=== PATIENT | male | born 1960 | race Caucasian/White ===

== ENCOUNTER 2020-09-06 08:11 | Outpatient (REF) | payer OTHER, SELFPAY ==
--- NOTE | 2020-09-06 | MR_ITS ---
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 COMPARISON: CT scan of the head 04/05/2020. TECHNIQUE: Multiplanar, multisequence MRI of the brain was obtained before and after the intravenous administration of 8.5 mL Gadavist. FINDINGS: There are sequelae of a high right frontoparietal craniotomy, and there has been resection of the previously demonstrated enhancing nodule. There is hemosiderin staining in and around the resection bed. The area demonstrates increased T2 and FLAIR signal, most consistent with gliosis. There is no abnormal enhancement in this region following intravenous contrast demonstration. No new areas of abnormal enhancement are demonstrated on the current study. No diffusion abnormalities are identified to suggest an acute or subacute infarct. No mass effect or midline shift is seen. The ventricles and sulci appear normal. There are a few scattered foci of increased T2 and FLAIR signal in the subcortical and periventricular white matter, most consistent with chronic microvascular ischemic changes. There is a low gradient signal in the basal ganglia bilaterally, corresponding to mineralization seen on the prior scan. No extra-axial fluid collections are seen. The brainstem and cerebellum are normal. There is no evidence of acute hemorrhage. The craniovertebral junction, marrow signal, and midline structures are normal. The major intracranial flow-voids at the level of the habematolel of [place] are preserved. The dural venous sinus flow-voids are maintained. The mastoid air cells and paranasal sinuses are well-aerated. MR/MR head/brain wo/w con IMPRESSION: 1. There has been interval resection of the enhancing nodule in the high right frontal lobe. There is no evidence of residual or recurrent enhancement, and there is gliosis in the region of the surgery. There are no new areas of abnormal enhancement. 2. There are mild chronic microvascular ischemic changes. There is mineralization in the basal ganglia, demonstrated on prior imaging.
[2020-09-06 08:41] LABS: Estimated Glomerular Filt Rate > 60
== END 2020-09-06 08:12 | disposition home or self-care (01) ==
LOC: HO.MRI 08:11
PROVIDERS: PCP Family Medicine; Visit Provider Student in an Organized Health Care Education/Training Program
DX: C79.31 Secondary malignant neoplasm of brain (principal); C79.49 Secondary malignant neoplasm of other parts of nervous system
CPT/HCPCS: 70553; 82565; A9585

== ENCOUNTER 2021-03-31 12:41 | Outpatient (REF) | payer OTHER, SELFPAY ==
--- NOTE | ~2021-03-31 | XR_ITS ---
EXAMINATION: XR CHEST CLINICAL INFORMATION: Cough COMPARISON: Previous chest x-rays October 2019 and April [address] April 2016 TECHNIQUE: 2 views of the chest were obtained. FINDINGS: The cardiac silhouette does not appear enlarged. There is a spiculated left central upper lobe or suprahilar lesion measuring 3 cm. This is similar to October 2019 exam but new from older chest CT April 2016. There is linear scarring or chronic subsegmental atelectasis seen in the right upper lobe that is unchanged. There is linear scarring or subsegmental atelectasis at the lung bases. The lungs are otherwise clear. There is no pleural effusion or pneumothorax. Bony structures are unremarkable. XR/XR chest 2V IMPRESSION: Stable 3 cm spiculated central left upper lobe or suprahilar nodule from October 2019 exam. Follow-up chest CT scan should be considered. Appearance is again worrisome for neoplasm. Areas of linear scarring or subsegmental atelectasis at the lung bases.
== END 2021-03-31 12:42 | disposition home or self-care (01) ==
LOC: HO.XRAY 12:41
PROVIDERS: PCP Family Medicine; Visit Provider Family Medicine
DX: Z20.822 Contact with and (suspected) exposure to COVID-19 (principal); R05 Cough; B34.9 Viral infection, unspecified
CPT/HCPCS: 71046; U0003; U0005

== ENCOUNTER 2021-04-01 09:43 | Outpatient (REF) | payer OTHER, SELFPAY ==
[2021-04-01 11:22] LABS: Alanine Aminotransferase 13 U/L (0-40); Albumin Level 4.4 g/dL (3.5-5.0); Alkaline Phosphatase 76 U/L (39-117); Anion Gap 14 (12-20); Aspartate Amino Transferase 19 U/L (5-37); Bilirubin Total 0.6 mg/dL (0.0-1.0); Blood Urea Nitrogen 15 mg/dL (9-16); Calcium 9.5 mg/dL (8.4-10.2); Carbon Dioxide 24 mmol/L (22-29); Chloride 107 mmol/L (96-108); Cholesterol 226 mg/dL; Estimated Glomerular Filt Rate 54; Glucose Random 100 mg/dL (60-115); HDL Cholesterol 43 mg/dL; LDL Cholesterol Calculated 157 mg/dl; Potassium 4.3 mmol/L (3.3-5.1); Sodium 141 mmol/L (135-145); Total Protein 7.5 g/dL (6.5-8.0); Triglycerides 133 mg/dL
== END 2021-04-01 09:44 | disposition home or self-care (01) ==
LOC: HO.WFDLDS 09:43
PROVIDERS: Visit Provider Family Medicine
DX: Z00.00 Encounter for general adult medical examination without abnormal findings (principal); R53.1 Weakness; E78.00 Pure hypercholesterolemia, unspecified; Z90.5 Acquired absence of kidney
CPT/HCPCS: 36415; 80053; 80061

== ENCOUNTER 2021-08-21 14:00 | Outpatient (RCR) | payer OTHER, SELFPAY | END 2021-10-07 07:36 | disposition home or self-care (01) | LOC: HO.PTWFD 14:00 | PROVIDERS: Visit Provider Family Medicine | DX: M54.2 Cervicalgia (principal) | CPT/HCPCS: 97012; 97014; 97035; 97110; 97140; 97162; 97163; 97535 ==

== ENCOUNTER → 2021-11-04 08:59 | Outpatient (BNVA) | payer OTHER, SELFPAY | PROVIDERS: PCP Family Medicine; Referring Provider Family Medicine; Visit Provider Surgery ==

== ENCOUNTER 2021-12-11 08:05 | Outpatient (REF) | payer OTHER, SELFPAY ==
[2021-12-11 11:14] LABS: MANUAL DIFF FLAG NO
[2021-12-11 11:20] LABS: Basophils Percent Auto 0.3 % (0-2); Eosinophils Absolute Auto 0.2 X10*3/uL (0.0-0.4); Eosinophils Percent Auto 2.2 % (0-4); Hematocrit 44.6 % (42.0-52.0); Hemoglobin 14.8 g/dl (14.0-18.0); Imm Gran Abs Auto 0.04 X10*3/uL (0.00-0.03); Imm Gran Pct Auto 0.5 % (0.0-0.4); Lymphocytes Absolute Auto 1.4 X10*3/uL (1.2-4.9); Lymphocytes Percent Auto 18.8 % (20-40); Mean Corpuscular HGB Conc 33.2 g/dl (31.0-36.0); Mean Corpuscular Hemoglobin 30.3 pg (27.0-33.0); Mean Corpuscular Volume 91.2 fL (80.0-98.0); Mean Platelet Volume 11.2 fL (9.4-12.4); Monocytes Absolute Auto 0.7 X10*3/uL (0.1-1.2); Monocytes Percent Auto 9.7 % (2-11); Neutrophils Absolute Auto 5.2 x10*3/uL (2.0-8.3); Neutrophils Percent Auto 68.5 % (45-73); Platelet Count 314 X10*3/uL (160-400); Red Blood Count 4.89 X10*6/uL (4.60-5.80); Red Cell Distribution Width 13.2 % (11.0-16.0); White Blood Count 7.6 X10*3/uL (4.8-10.8)
[2021-12-11 11:22] LABS: Appearance Urine CLEAR; Color Urine YELLOW; Glucose Urine UA NEG (NEG); Leukocyte Esterase Urine NEG (NEG); Nitrite Urine NEG (NEG); Urine Blood TRACE (NEG); Urine Ketones NEG (NEG); Urine Protein NEG (NEG-TRACE)
[2021-12-11 11:41] LABS: RBC Urine 0-2 /HPF (0); WBC Urine 0-2 /HPF (0-4)
[2021-12-11 11:59] LABS: TSH reflex Free T4 1.91 uIU/mL (0.32-4.0)
[2021-12-11 12:00] LABS: Alanine Aminotransferase 11 U/L (0-40); Albumin Level 4.2 g/dL (3.5-5.0); Alkaline Phosphatase 60 U/L (39-117); Anion Gap 12 (12-20); Aspartate Amino Transferase 19 U/L (5-37); Bilirubin Total 0.6 mg/dL (0.0-1.0); Blood Urea Nitrogen 18 mg/dL (9-16); Calcium 9.3 mg/dL (8.4-10.2); Carbon Dioxide 27 mmol/L (22-29); Chloride 105 mmol/L (96-108); Cholesterol 216 mg/dL; Estimated Glomerular Filt Rate 58; Glucose Fasting 97 mg/dL (60-99); HDL Cholesterol 39 mg/dL; LDL Cholesterol Calculated 155 mg/dl; Potassium 4.3 mmol/L (3.3-5.1); Sodium 140 mmol/L (135-145); Total Protein 7.2 g/dL (6.5-8.0); Triglycerides 113 mg/dL
[2021-12-11 12:30] LABS: Creatinine Urine 108.96 mg/dL; Microalbumin Urine < 5.0 mg/L
== END 2021-12-11 08:06 | disposition home or self-care (01) ==
LOC: HO.WFDLDS 08:05
PROVIDERS: Visit Provider Family Medicine
DX: Z00.00 Encounter for general adult medical examination without abnormal findings (principal); Z12.5 Encounter for screening for malignant neoplasm of prostate; I10 Essential (primary) hypertension
CPT/HCPCS: 36415; 80053; 80061; 81001; 82043; 84153; 84443; 85025

== ENCOUNTER 2022-04-24 09:44 | Outpatient (REF) | payer OTHER, SELFPAY ==
[2022-04-24 12:45] LABS: Cholesterol 211 mg/dL; HDL Cholesterol 39 mg/dL; LDL Cholesterol Calculated 153 mg/dl; Triglycerides 99 mg/dL
[2022-04-25 12:56] LABS: LDL Cholesterol Direct 160 mg/dL (<100)
== END 2022-04-24 09:45 | disposition home or self-care (01) ==
LOC: HO.WFDLDS 09:44
PROVIDERS: Visit Provider Family Medicine
DX: E78.00 Pure hypercholesterolemia, unspecified (principal); E78.6 Lipoprotein deficiency
CPT/HCPCS: 36415; 80061; 83721

== ENCOUNTER 2022-10-07 09:15 | Outpatient (REF) | payer OTHER, MEDICARE, SELFPAY ==
[2022-10-07 11:39] LABS: Cholesterol 227 mg/dL; HDL Cholesterol 40 mg/dL; LDL Cholesterol Calculated 169 mg/dl; Triglycerides 93 mg/dL
== END 2022-10-07 09:16 | disposition home or self-care (01) ==
LOC: HO.10HDL 09:15
PROVIDERS: Visit Provider Family Medicine
DX: Z00.00 Encounter for general adult medical examination without abnormal findings (principal)
CPT/HCPCS: 36415; 80061

== ENCOUNTER 2023-01-05 11:09 | Outpatient (REF) | payer OTHER, MEDICARE, SELFPAY ==
[2023-01-05 13:19] LABS: MANUAL DIFF FLAG NO
[2023-01-05 13:24] LABS: Basophils Percent Auto 0.4 % (0-2); Eosinophils Absolute Auto 0.1 X10*3/uL (0.0-0.4); Eosinophils Percent Auto 1.2 % (0-4); Hemoglobin 15.3 g/dl (14.0-18.0); Imm Gran Abs Auto 0.03 X10*3/uL (0.00-0.03); Imm Gran Pct Auto 0.3 % (0.0-0.4); Lymphocytes Absolute Auto 1.7 X10*3/uL (1.2-4.9); Lymphocytes Percent Auto 18.2 % (20-40); Mean Corpuscular HGB Conc 33.3 g/dl (31.0-36.0); Mean Corpuscular Hemoglobin 29.8 pg (27.0-33.0); Mean Corpuscular Volume 89.5 fL (80.0-98.0); Mean Platelet Volume 10.9 fL (9.4-12.4); Monocytes Absolute Auto 0.7 X10*3/uL (0.1-1.2); Monocytes Percent Auto 7.7 % (2-11); Neutrophils Absolute Auto 6.8 x10*3/uL (2.0-8.3); Neutrophils Percent Auto 72.2 % (45-73); Platelet Count 361 X10*3/uL (160-400); Red Blood Count 5.14 X10*6/uL (4.60-5.80); Red Cell Distribution Width 13.3 % (11.0-16.0); White Blood Count 9.4 X10*3/uL (4.8-10.8)
[2023-01-05 13:45] LABS: Appearance Urine Clear; Color Urine Dark Yellow; Glucose Urine UA Negative (Negative); Leukocyte Esterase Urine Negative (Negative); Nitrite Urine Negative (Negative); PH 6.5 (5.0-9.0); UMIC TRIGGER UA YES; Urine Blood Trace (Negative); Urine Ketones Negative (Negative); Urine Protein Trace mg/dL (Neg-Trace)
[2023-01-05 13:48] LABS: Bacteria Urine None Seen (None Seen); Hyaline Casts Urine 0-2 /LPF (0-2); Squamous Epithelial Cell Urine 0-2 /HPF (0-2); WBC Urine 0-5 /HPF (0-5)
[2023-01-05 13:50] LABS: Alanine Aminotransferase 15 U/L (0-40); Albumin Level 4.2 g/dL (3.5-5.0); Alkaline Phosphatase 65 U/L (39-117); Anion Gap 13 (12-20); Aspartate Amino Transferase 25 U/L (5-37); Bilirubin Total 0.6 mg/dL (0.0-1.0); Blood Urea Nitrogen 16 mg/dL (9-16); Carbon Dioxide 26 mmol/L (22-29); Chloride 107 mmol/L (96-108); Cholesterol 191 mg/dL; Estimated Glomerular Filt Rate > 60; Glucose Fasting 89 mg/dL (60-99); HDL Cholesterol 44 mg/dL; LDL Cholesterol Calculated 128 mg/dl; Potassium 4.9 mmol/L (3.3-5.1); Sodium 141 mmol/L (135-145); Total Protein 6.9 g/dL (6.5-8.0); Triglycerides 97 mg/dL
[2023-01-05 14:07] LABS: Creatinine Urine 267.91 mg/dL; Microalbum/Creatinine Ratio Ur 7.8 ug/mg cr
[2023-01-05 14:07] LABS: Prostate Specific Antigen Scr 1.01 ng/mL (<0.05-4.0)
== END 2023-01-05 11:10 | disposition home or self-care (01) ==
LOC: HO.10HDL 11:09
PROVIDERS: Visit Provider Family Medicine
DX: Z00.00 Encounter for general adult medical examination without abnormal findings (principal); Z12.5 Encounter for screening for malignant neoplasm of prostate; I10 Essential (primary) hypertension
CPT/HCPCS: 36415; 80053; 80061; 81001; 82043; 84153; 84443; 85025

== ENCOUNTER 2023-02-22 09:07 | Outpatient (REF) | payer OTHER, MEDICARE, SELFPAY ==
[2023-02-22 12:08] LABS: Free T4 (Free Thyroxine) 0.92 ng/dL (0.71-1.85); Thyroid Stimulating Hormone 2.76 uIU/mL (0.32-4.0)
== END 2023-02-22 09:08 | disposition home or self-care (01) ==
LOC: HO.10HDL 09:07
PROVIDERS: Visit Provider Specialist Research Study
DX: C64.9 Malignant neoplasm of unspecified kidney, except renal pelvis (principal); C78.00 Secondary malignant neoplasm of unspecified lung; R53.83 Other fatigue; Z79.899 Other long term (current) drug therapy
CPT/HCPCS: 36415; 84439; 84443

== ENCOUNTER 2023-06-30 08:22 | Outpatient (AMB) | payer MEDICARE, OTHER, SELFPAY ==
--- NOTE | 2023-06-30 08:24 | MHC.PC.OV ---
Vital Signs 06/30/23 08:25 Height 5 ft 10 in Weight 189 lb 8 oz BMI 27.2 BP 112/68 Blood Pressure Location Lt brachial Position Sitting Respiration 12 Pulse 72 Pulse Source Pulse Oximeter Temp 98.6 F Temp Source Oral Pulse Oximetry (%) 99 Oxygen Delivery Method Room Air Intake Visit Reasons: f/u chronic conditions Intake Note: Patient is here to follow up with chronic conditions and reports he has not had any recent labs drawn. He reports he does not have any current concerns at this time. 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 Most recent visit at [facility] in January, discusses that there has been no recurrence of disease and that he would follow-up in 3 or 6 months. They requested TSH and T4 testing which was done and was within normal limits. They referred him to Nephrology/Onco-Nephrology; history of nephrectomy and some chronic kidney disease. History of hematuria. I had ordered a BMP and urine studies but he had not gotten this done. Urine dip today shows mild hematuria as previously. Pt reports he continues to exercise. [facility] Medical History Acute deep vein thrombosis (DVT) Metastatic renal cell carcinoma Surgical History History of lung surgery History of nephrectomy, right S/P craniotomy Family History Father No problems noted. Mother Osteoarthritis Brother No problems noted. Brother No problems noted. Son No problems noted. Daughter No problems noted. Social History Housing: House Alcohol intake: never Patient Tobacco Use Status: Current someday Tobacco user (somedays not all) Cigarettes Per Day: 2 e-Cigarette/Vaping Use: Never Used Second Hand Smoke Exposure: No service: Yes Current occupational status: employed Current occupational exposures/hazards: No Cognitive needs: No Hearing needs: No Vision needs: No Questionnaire Thrive Questionnaire Date Thrive assessed: 10/08/22 XAVIER-7 AMB Questionnaire XAVIER-7 Date XAVIER - 7 assessed: 10/08/22 Source: Developed by Drs. Vijay Mac, Tana Matthew, Mono Doherty and colleagues, with an educational otto from [employer]. Review of Systems Const Denies chills, Denies fatigue, Denies fever(s), Denies headache(s) and Denies weakness ENT Denies dizziness and Denies headache(s) Card Denies dyspnea Resp Denies cough, Denies dyspnea, Denies wheezing and Denies other (shortness of breath) Musc Denies numbness and Denies tingling Neuro Denies dizziness, Denies headache(s), Denies numbness, Denies tingling and Denies weakness Psych Denies anxiety and Denies depression Endo Denies fatigue Aller/Immun Denies wheezing Physical exam (Primary Care) Vital Signs: Last Vital Signs Temp 98.6 F 06/30/23 08:25 Pulse 72 06/30/23 08:25 Resp 12 06/30/23 08:25 BP 112/68 06/30/23 08:25 Pulse Ox 99 06/30/23 08:25 Oxygen Delivery Method Room Air 06/30/23 08:25 BMI result Body Mass Index 27.2 Tobacco/Smoking Status: Tobacco use Status Tobacco use date assessed 10/08/22 06/30/23 08:24 Patient Tobacco Use Status Current someday Tobacco ( 06/30/23 08:24 somedays not all) e-Cigarette/Vaping Use Never Used 06/30/23 08:24 Thrive Assessment: Date of Thrive Assessment Date Thrive assessed 10/08/22 06/30/23 08:24 Const General: well developed; No acute distress Nutritional Appearance: well nourished Orientation/consciousness: patient oriented x3 HENMT Head: Yes normocephalic and Yes atraumatic Eyes General: appearance normal, both eyes and all related structures Pupils: Equal, round and reactive pupils present EOM: EOMs intact bilaterally Resp Effort & Inspection: normal respiratory effort Auscultation: clear to auscultation bilaterally Cardio Rate: regular rate Rhythm: regular rhythm Heart sounds: S1 normal heart sound present, S2 normal heart sound present, no gallops, no murmurs and no rubs Neuro General: patient oriented x3 and gait normal Cranial nerves: Yes Equal, round and reactive pupils present Psych Affect: normal affect Assessment and Plan Assessment & Plan (1) Microscopic hematuria: Code(s): R31.29 - Other microscopic hematuria Plan: Still?has?microscopic?hematuria?and?history?of?chronic?renal?failure?and?history?of?single?kidney?after?nephrectomy?for?renal?cell?carcinoma. 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: Code(s): C79.31 - Secondary malignant neoplasm of brain; C64.9 - Malignant neoplasm of unspecified kidney, except renal pelvis Plan: Stable.??No?recent?recurrence [facility] (3) CKD (chronic kidney disease): Code(s): N18.9 - Chronic kidney disease, unspecified Plan: As?above,?will?refer?to?Nephrology Check?labs Orders: Orders TSH reflex Free T4 Today C64.9 - Malignant neoplasm of unspecified kidney, except renal pelvis, C79.31 - Secondary malignant neoplasm of brain, Z00.00 - Encounter for general adult medical examination without abnormal findings Basic Metabolic Panel Today N18.9 - Chronic kidney disease, unspecified, Z00.00 - Encounter for general adult medical examination without abnormal findings Magnesium Today N18.9 - Chronic kidney disease, unspecified Coding Level of Care Code Est Pt Level 3 (38855) Diagnoses Microscopic hematuria R31.29 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
[2023-06-30 08:25] VITALS: BP 112/68; PULSE 72; RESP 12; TEMP 37; O2SAT 99; BMI 27.2
== END 2023-06-30 09:11 | disposition home or self-care (01) ==
PROVIDERS: Visit Provider Family Medicine
DX: R31.29 Other microscopic hematuria (principal); C79.31 Secondary malignant neoplasm of brain; C64.9 Malignant neoplasm of unspecified kidney, except renal pelvis; N18.9 Chronic kidney disease, unspecified
CPT/HCPCS: 99213

== ENCOUNTER 2023-06-30 09:16 | Outpatient (REF) | payer MEDICARE, OTHER, SELFPAY | END 2023-06-30 09:17 | disposition home or self-care (01) | LOC: HO.LAB 09:16 | PROVIDERS: Visit Provider Family Medicine | DX: R31.29 Other microscopic hematuria (principal) | CPT/HCPCS: 81003 ==

== ENCOUNTER 2023-07-20 11:22 | Outpatient (REF) | payer MEDICARE, OTHER, SELFPAY ==
[2023-07-20 14:21] LABS: Anion Gap 15 (12-20); Blood Urea Nitrogen 15 mg/dL (9-16); Calcium 9.9 mg/dL (8.4-10.2); Carbon Dioxide 26 mmol/L (22-29); Chloride 105 mmol/L (96-108); Estimated Glomerular Filt Rate 57; Glucose Random 108 mg/dL (60-115); Magnesium 2.3 mg/dL (1.6-2.6); Potassium 4.6 mmol/L (3.3-5.1); Sodium 141 mmol/L (135-145)
[2023-07-20 14:41] LABS: TSH reflex Free T4 2.71 uIU/mL (0.32-4.0)
== END 2023-07-20 11:23 | disposition home or self-care (01) ==
LOC: HO.10HDL 11:22
PROVIDERS: Visit Provider Family Medicine
DX: Z00.00 Encounter for general adult medical examination without abnormal findings (principal); N18.9 Chronic kidney disease, unspecified; C64.9 Malignant neoplasm of unspecified kidney, except renal pelvis; C79.31 Secondary malignant neoplasm of brain
CPT/HCPCS: 36415; 80048; 83735; 84443

== ENCOUNTER 2023-07-21 09:24 | Outpatient (AMB) | payer MEDICARE, OTHER, SELFPAY ==
--- NOTE | 2023-07-20 18:56 | HO.NEPHOV ---
Intake Intake Visit Reasons: Acquired absence of kidney microscopic hematuria Allergies environmental Allergy (Unknown, Uncoded 06/30/23 08:33) Cough, sneezing Coding
--- NOTE | 2023-07-21 09:20 | HO.NEPHOV_ITS ---
Intake Vital Signs 07/21/23 09:43 Height 5 ft 10 in Weight 192 lb BMI 27.5 BP 114/86 Blood Pressure Location Lt brachial Position Sitting Intake Visit Reasons: Acquired absence of kidney microscopic hematuria Intake Note: H/O Renal cell carcinoma Solitary Kidney Outbound Sales Specialist Required: No Accompanied by: Self / Same As Patient Allergies environmental Allergy (Unknown, Uncoded 06/30/23 08:33) Cough, sneezing HPI HPI Comments History of Present Illness Details I had the delight of seeing Gigi in consult for CKD. He has H/O metastatic renal cell cancer and had undergone unilateral nephrectomy. He also had lung lesions ( 2016) and craniotomy and brain radiation ( 2022)but has not had any chemotherapy.. He has been followed up in [place]. He is not on any chemotherapy now but had immunotherapy but was causing lung issues forcing it to be stopped. ( Treesa Ayers). He had right DVT post brain surgery and has been on Elquis. He also had Green field filter in right side. He also has been having microscopic hematuria which is intermittent. He is not a diabetic or hypertensive. He is not on any ACEI , ARB or NSAID's. He has no H/O protein in urine , edema. His BP has been at goal. He has no H/O CAD/ CVA/GIO/PAD/ CHF. His serum creatinine has been around 1.29. His urine output is good and does not have any H/O obstructive uropathy. He hydrates himself well. He has no family H/O ESRD or renal transplantation. He had CT scan chest without contrast and MRI of abdomen with XAVIER 2 months ago. He is an occasional smoker. Assessment & Plan Assessment & Plan (1) CKD (chronic kidney disease): Code(s): N18.9 - Chronic kidney disease, unspecified (2) Microscopic hematuria: Code(s): R31.29 - Other microscopic hematuria (3) Metastatic renal cell carcinoma: Code(s): C64.9 - Malignant neoplasm of unspecified kidney, except renal pelvis (4) History of right nephrectomy: Comment: 2015 Code(s): Z90.5 - Acquired absence of kidney Plan Has acquired solitary kidney Renal function fairly stable Follows up with Urology/[place] Had imaging - [place]. On Elquis No signs or symptoms of recurrence so far Has good UO; Had imaging in [place] Needs to keep BP @ goal consistently Good hydration. No NSAID's. May need Urology consult ( if M/S hematuria persists ) More than 50 % time spent discussing all these Answered all questions; Labs ordered Follow up given Coding Level of Care Code New Pt Level 5 (00536) Diagnoses CKD (chronic kidney disease) N18.9 Microscopic hematuria R31.29 Metastatic renal cell carcinoma C64.9 History of right nephrectomy Z90.5
[2023-07-21 09:43] VITALS: BP 114/86; BMI 27.5
== END 2023-07-21 10:22 | disposition home or self-care (01) ==
PROVIDERS: PCP Family Medicine; Referring Provider Family Medicine; Visit Provider Internal Medicine Nephrology
DX: N18.9 Chronic kidney disease, unspecified (principal); R31.29 Other microscopic hematuria; Z85.528 Personal history of other malignant neoplasm of kidney; Z90.5 Acquired absence of kidney
CPT/HCPCS: 99204

== ENCOUNTER → 2023-07-21 09:24 | Outpatient (BNVA) | payer MEDICARE, OTHER, SELFPAY | PROVIDERS: PCP Family Medicine; Referring Provider Family Medicine; Visit Provider Internal Medicine Nephrology | DX: N18.9 Chronic kidney disease, unspecified (principal); R31.29 Other microscopic hematuria; Z85.528 Personal history of other malignant neoplasm of kidney; Z90.5 Acquired absence of kidney | CPT/HCPCS: 99202 ==

== ENCOUNTER 2023-07-21 15:09 | Outpatient (AMB) | payer MEDICARE, OTHER, SELFPAY ==
--- NOTE | 2023-07-21 15:04 | MHC.PC.OV ---
Intake Visit Reasons: f/u labs Intake Note: Patient ready for a telehealth call for lab results. Installer Technician Required: No Accompanied by: Self / Same As Patient Allergies environmental Allergy (Unknown, Uncoded 07/21/23 15:05) Cough, sneezing Tobacco use date assessed: 10/08/22 HPI f/u labs HPI Details 62 y/o male presents to f/u labs via telemedicine. Labs were drawn 07/20/23. Reviewed labs with pt. TSH levels are fine. Creatinine levels 1.29. GFR 57. [facility] Medical History Acute deep vein thrombosis (DVT) Metastatic renal cell carcinoma Surgical History History of lung surgery History of nephrectomy, right S/P craniotomy Family History Father No problems noted. Mother Osteoarthritis Brother No problems noted. Brother No problems noted. Son No problems noted. Daughter No problems noted. Social History Housing: House Alcohol intake: never Patient Tobacco Use Status: Current someday Tobacco user (somedays not all) Cigarettes Per Day: 2 e-Cigarette/Vaping Use: Never Used Second Hand Smoke Exposure: No service: Yes Current occupational status: employed Current occupational exposures/hazards: No Cognitive needs: No Hearing needs: No Vision needs: No Questionnaire Thrive Questionnaire Date Thrive assessed: 10/08/22 XAVIER-7 AMB Questionnaire XAVIER-7 Date XAVIER - 7 assessed: 10/08/22 Source: Developed by Drs. Vijay Mac, Tana Matthew, Mono Doherty and colleagues, with an educational otto from [employer] Review of Systems Const Denies chills, Denies fatigue, Denies fever(s), Denies headache(s) and Denies weakness ENT Denies dizziness and Denies headache(s) Card Denies dyspnea Resp Denies cough, Denies dyspnea, Denies wheezing and Denies other (shortness of breath) Musc Denies numbness and Denies tingling Neuro Denies dizziness, Denies headache(s), Denies numbness, Denies tingling and Denies weakness Psych Denies anxiety and Denies depression Endo Denies fatigue Aller/Immun Denies wheezing Physical exam (Primary Care) Tobacco/Smoking Status: Tobacco use Status Tobacco use date assessed 10/08/22 07/21/23 15:07 Patient Tobacco Use Status Current someday Tobacco ( 07/21/23 15:07 somedays not all) e-Cigarette/Vaping Use Never Used 07/21/23 15:07 Thrive Assessment: Date of Thrive Assessment Date Thrive assessed 10/08/22 07/21/23 15:07 Telehealth Telehealth Location of provider rendering services: practice address Location of patient: address on file Patient Identification confirmed using: Name, : Yes Telehealth method: voice only Patient verbally consented to treatment: Yes Patient verbally consented to billing insurance company: Yes Patient informed of any privacy concerns related to visit: Yes Minutes spent on Phone/Video with Pt.: 6 Assessment and Plan Assessment & Plan (1) CKD (chronic kidney disease): Code(s): N18.9 - Chronic kidney disease, unspecified Plan: Stable (2) Microscopic hematuria: Code(s): R31.29 - Other microscopic hematuria Plan: Ongoing?microscopic?hematuria Was?seen?by?Nephrology?and??does?not?feel?this?is?a?renal?issue-he?recommends?urology Patient?had?seen? in?the?past?and?I?will?refer?him?back (3) Metastatic renal cell carcinoma: Code(s): C64.9 - Malignant neoplasm of unspecified kidney, except renal pelvis Plan: Currently?stable?without advancement?of?disease Follow-up?with?specialists?at?[facility] (4) Fatigue: Code(s): R53.83 - Other fatigue Plan: Ongoing?fatigue. No?obvious?laboratory?explanation He?will?follow-up?in?December?for?his?complete?physical.??Checking?additional?labs?including?testosterone?levels. Repeating?inflammatory?markers?which?were?previously?done?at?[facility] Orders: Orders Comprehensive [place]. Panel Fast Today Z00.00 - Encounter for general adult medical examination without abnormal findings Lipid Panel Today Z00.00 - Encounter for general adult medical examination without abnormal findings Erythrocyte Sedimentation Rate Today R53.83 - Other fatigue CRP High Sensitivity Today R53.83 - Other fatigue Complete Blood Count Auto Diff Today Z00.00 - Encounter for general adult medical examination without abnormal findings Microalbumin, Random (w Creat) Today I10 - Essential (primary) hypertension Prostate Specific Antigen Scr Today Z12.5 - Encounter for screening for malignant neoplasm of prostate TSH reflex Free T4 Today Z00.00 - Encounter for general adult medical examination without abnormal findings Testosterone, Free/Total Today R53.83 - Other fatigue Lyme IgG/IgM w/reflex to WB Today R53.83 - Other fatigue Referrals Urology Referral R31.29 - Other microscopic hematuria Coding Level of Care Code Tele Est Pt Level 2 (27437) Diagnoses CKD (chronic kidney disease) N18.9 Microscopic hematuria R31.29 Metastatic renal cell carcinoma C64.9 Fatigue R53.83
== END 2023-07-21 17:30 | disposition home or self-care (01) ==
PROVIDERS: PCP Family Medicine; Visit Provider Family Medicine
DX: N18.9 Chronic kidney disease, unspecified (principal); R31.29 Other microscopic hematuria; C64.9 Malignant neoplasm of unspecified kidney, except renal pelvis; R53.83 Other fatigue
CPT/HCPCS: 99441

== ENCOUNTER 2024-01-26 11:53 | Outpatient (AMB) | payer MEDICARE, OTHER, SELFPAY ==
[2024-01-26 11:55] VITALS: BP 110/86; PULSE 97; O2SAT 96; BMI 27.3
--- NOTE | 2024-01-26 11:55 | HO.NEPHOV ---
Vital Signs 01/26/24 11:55 Height 5 ft 10 in Weight 190 lb BMI 27.3 BP 110/86 Blood Pressure Location Rt brachial Position Sitting Pulse 97 Pulse Source Pulse Oximeter Pulse Oximetry (%) 96 Oxygen Delivery Method Room Air Intake Visit Reasons: Acquired absence of kidney microscopic hematuria Lead Developer Required: No Accompanied by: Self / Same As Patient Allergies environmental Allergy (Unknown, Uncoded 07/21/23 15:05) Cough, sneezing HPI Comments Details: I had the delight of seeing Gigi in follow up for CKD. He has H/O metastatic renal cell cancer and had undergone unilateral nephrectomy. He also had lung lesions ( 2016) and craniotomy and brain radiation ( 2022)but has not had any chemotherapy.. He has been followed up in [place]. He is not on any chemotherapy now but had immunotherapy but was causing lung issues forcing it to be stopped. ( Teresa Ayers). He had right DVT post brain surgery and has been on Elquis. He also had Green field filter in right side. He also has been having microscopic hematuria which is intermittent. He is not a diabetic or hypertensive. He is not on any ACEI , ARB or NSAID's. He has no H/O protein in urine , edema. His BP has been at goal. He has no H/O CAD/ CVA/GIO/PAD/ CHF. His serum creatinine has been around 1.29. His urine output is good and does not have any H/O obstructive uropathy. He hydrates himself well. He has no family H/O ESRD or renal transplantation. He had CT scan and is going to have MRI brain tomorrow. He is an occasional smoker. [facility] Medical History Acute deep vein thrombosis (DVT) Metastatic renal cell carcinoma Surgical History History of lung surgery History of nephrectomy, right S/P craniotomy Family History Father No problems noted. Mother Osteoarthritis Brother No problems noted. Brother No problems noted. Son No problems noted. Daughter No problems noted. Social History Housing: House Alcohol intake: never Patient Tobacco Use Status: Current someday Tobacco user (somedays not all) Cigarettes Per Day: 2 e-Cigarette/Vaping Use: Never Used Second Hand Smoke Exposure: No service: Yes Current occupational status: employed Current occupational exposures/hazards: No Cognitive needs: No Hearing needs: No Vision needs: No Physical Exam Vital Signs: Last Vital Signs Pulse 97 01/26/24 11:55 BP 110/86 01/26/24 11:55 Pulse Ox 96 01/26/24 11:55 Oxygen Delivery Method Room Air 01/26/24 11:55 BMI result Body Mass Index 27.3 Const General: comfortable and no acute distress Orientation/consciousness: patient oriented x3 HEENT Head: Yes normocephalic Mouth: Normal oral and palatal mucosa present Eyes EOM: EOMs intact bilaterally Neck Neck: Yes supple Resp Auscultation: clear to auscultation bilaterally Cardio Jugular venous distension: no JVD Rate: regular rate GI Palpation (GI): Soft to palpation Auscultation: normal bowel sounds General: Yes no CVA tenderness Back/Spine/Pelvis Back: no CVA tenderness Skin General skin exam: no rashes or lesions noted Neuro General: patient oriented x3 and moves all extremities Extrem General: Yes no pedal edema Results Reviewed Nephrology Results: Hgb 15.3 g/dl (14.0-18.0) 01/05/23 WBC 9.4 X10*3/uL (4.8-10.8) 01/05/23 Plt Count 361 X10*3/uL (160-400) 01/05/23 Sodium 141 mmol/L (135-145) 07/20/23 Potassium 4.6 mmol/L (3.3-5.1) 07/20/23 Chloride 105 mmol/L (96-108) 07/20/23 Carbon Dioxide 26 mmol/L (22-29) 07/20/23 BUN 15 mg/dL (9-16) 07/20/23 Creatinine 1.29 mg/dL (0.5-1.4) 07/20/23 Calcium 9.9 mg/dL (8.4-10.2) 07/20/23 Urine Protein Negative mg/dL (Neg-Trace) 06/30/23 Urine Creatinine 267.91 mg/dL 01/05/23 Assessment & Plan Assessment & Plan (1) Acquired solitary kidney: Code(s): Z90.5 - Acquired absence of kidney Category: Medical Plan Has acquired solitary kidney Renal function fairly stable Follows up with Urology/[place] Had imaging - [place]. On Elquis Has good UO; Had imaging in [place] Needs to keep BP @ goal consistently Good hydration. No NSAID's Answered all questions; Labs ordered Follow up given Orders: Orders Blood Urea Nitrogen Today Z90.5 - Acquired absence of kidney Electrolytes Today Z90.5 - Acquired absence of kidney UA and rflx microscopic Today Z90.5 - Acquired absence of kidney Creatinine Today Z90.5 - Acquired absence of kidney Coding Level of Care Code Est Pt Level 4 (63475) Diagnoses Acquired solitary kidney Z90.5
== END 2024-01-26 12:54 | disposition home or self-care (01) ==
LOC: HO.HKA 11:53
PROVIDERS: PCP Family Medicine; Visit Provider Internal Medicine Nephrology
DX: Z90.5 Acquired absence of kidney (principal)
CPT/HCPCS: 99214

== ENCOUNTER → 2024-01-26 11:53 | Outpatient (BNVA) | payer MEDICARE, OTHER, SELFPAY | PROVIDERS: PCP Family Medicine; Visit Provider Internal Medicine Nephrology | DX: Z90.5 Acquired absence of kidney (principal) | CPT/HCPCS: 99212 ==

== ENCOUNTER 2024-02-15 09:36 | Outpatient (AMB) | payer MEDICARE, OTHER, SELFPAY ==
[2024-02-15 09:42] VITALS: BP 118/72; PULSE 72; O2SAT 96; BMI 27.0
--- NOTE | 2024-02-15 09:42 | A.OFFPC_ITS ---
Vital Signs 02/15/24 09:42 Height 5 ft 10 in Weight 188 lb BMI 27.0 BP 118/72 Blood Pressure Location Lt brachial Position Sitting Pulse 72 Pulse Source Pulse Oximeter Pulse Oximetry (%) 96 Oxygen Delivery Method Room Air Intake Visit Reasons: Follow Up Intake Note: Patient is here for follow up on labs, and physical today. Allergies environmental Allergy (Unknown, Uncoded 02/15/24 09:47) Cough, sneezing Medication List - Last Reconciled 02/15/24 by Leon Reyes MD apixaban (Eliquis) 5 mg PO BID 90 days ezetimibe (Zetia) 10 mg PO DAILY 90 days sildenafil 100 mg PO DAILY PRN Tobacco use date assessed: 02/15/24 Dental Screening Dental Screen Date: 02/15/24 Did you have a dental visit in the last 12 months?: Yes Did you have a dental problem in the last 6 months where you did not have access to dental care?: No Was dental information given to patient?: Patient has dentist HPI Follow Up HPI Details 63 y/o male presents for an extended exa m with f/u labs and health maintenance. Ongoing complaints of fatigue. No recent labs to review. PHQ-9 11, XAVIER-7 4 today. He states he has started talking to a therapist again and has an appt. scheduled next week. He declines any medications for his mood today. Pt has been exercising and has gotten back to the gym. He reports diet has been okay. Pt reports some tinnitus. HPI Comments History of Present Illness Details Documentation assistance for Leon Reyes MD, was provided by Ger Mckeon, Md Ophthalmologist on 02/15/2024 at 10:08 AM TUCKER. Rosalba, Dr. Reyes, have read, observed, and verified documentation. [facility] Medical History Acute deep vein thrombosis (DVT) Metastatic renal cell carcinoma Surgical History History of lung surgery History of nephrectomy, right S/P craniotomy Family History Father No problems noted. Mother Osteoarthritis Brother No problems noted. Brother No problems noted. Son No problems noted. Daughter No problems noted. Social History (Reviewed 02/15/24 @ 09:48 by Merlyn Valadez [facility]) Housing: House Alcohol intake: never Patient Tobacco Use Status: Current someday Tobacco user (somedays not all) Cigarettes Per Day: 2 e-Cigarette/Vaping Use: Never Used Second Hand Smoke Exposure: No service: Yes Current occupational status: employed Current occupational exposures/hazards: No Cognitive needs: No Hearing needs: No Vision needs: No Questionnaire PHQ-9 Over the last 2 weeks, how often have you been bothered by any of the following problems? 1. Little interest or pleasure in doing things: several days 2. Feeling down, depressed, or hopeless: several days 3. Trouble falling or staying asleep, or sleeping too much: several days 4. Feeling tired or having little energy: nearly every day 5. Poor appetite or overeating: more than half the days 6. Feeling bad about yourself - or that you are a failure or have let yourself or your family down: several days 7. Trouble concentrating on things, such as reading the newspaper or watching television: several days 8. Moving or speaking so slowly that other people could have noticed. Or the opposite - being so fidgety or restless that you have been moving around a lot more than usual: several days 9. Thoughts that you would be better off or of hurting yourself in some way: not at all Total score: 11 Depression Screening Interpretation: Positive Depression Screening Done: Yes 18313 - PHQ-9 Billing: Yes Source: Developed by Drs. Vijay Mac, Tana Matthew, Mono Doherty and colleagues, with an educational otto from [employer]. Thrive Questionnaire Date Thrive assessed: 02/15/24 I am a: Patient What is your living situation today?: I have a steady place to live Within the past 12 months, did the food you bought not last and you didn't have the money to get more?: Never true Within the past 12 months, did you worry whether your food would run out before you got money to buy more?: Never true Do you have trouble paying for medicines?: No Do you have trouble getting transportation to medical appointments?: No Do you have trouble paying your heating and electricity bill?: No Do you have trouble taking care of your child, family member or friend?: No Do you have trouble with day-to-day activities such as bathing, preparing meals, shopping, managing finances, etc.?: No Are you currently unemployed and looking for a job?: No Are you interested in more education?: No THRIVE Score: 0 AUDIT C Alcohol Use Questionnaire (AUDIT-C) 1. How often do you have a drink containing alcohol?: Never 3. How often do you have six or more drinks on one occasion?: Never Total Score: 0 XAVIER-7 AMB Questionnaire XAVIER-7 Date XAVIER - 7 assessed: 02/15/24 Feeling nervous, anxious, or on edge: 1 = Several days Not being able to stop or control worryin = Several days Worrying too much about different things: 1 = Several days Trouble relaxin = Not at all Being so restless that it is hard to sit still: 0 = Not at all Becoming easily annoyed or irritable: 1 = Several days Feeling afraid as if something awful might happen: 0 = Not at all Total XAVIER-7 score (0-4 normal; 5-9 mild; 10-14 moderate; 15-21 severe): 4 Source: Developed by Drs. Vijay Mac, Tana Matthew, Mono Doherty and colleagues, with an educational otto from [employer]. XAVIER-7 Assessment Billing XAVIER-7 Assessment Tool: XAVIER-7 Assessment 34479 Review of Systems Const Denies chills, Reports fatigue, Denies fever(s), Denies headache(s) and Denies weakness Eyes Denies change in vision ENT Denies dizziness, Denies headache(s), Denies hearing loss, Denies nasal congestion, Denies sinus pain, Denies sinus pressure and Denies sore throat Card Denies chest pain, Denies lightheadedness, Denies dyspnea and Denies other (palpitations) Resp Denies cough, Denies dyspnea and Denies wheezing GI Denies abdominal pain, Denies melena, Denies hematochezia, Denies change in bowel habits, Denies dyspepsia and Denies nausea Denies hematuria and Denies dysuria Musc Denies abnormal gait, Denies myalgias, Denies arthralgias, Denies numbness and Denies tingling Skin/Breast Denies rash, Denies unusual bruising and Denies wounds Neuro Denies abnormal gait, Denies dizziness, Denies headache(s), Denies memory loss, Denies numbness, Denies Sensory deficit (Neuro), Denies tingling and Denies weakness Psych Reports anxiety, Reports depression and Denies memory loss Endo Denies cold intolerance, Reports fatigue, Denies heat intolerance, Denies polydipsia and Denies polyuria Frederick/Lymph Denies easy bleeding and Denies easy bruising Aller/Immun Denies wheezing Physical exam (Primary Care) Vital Signs: Last Vital Signs Pulse 72 02/15/24 09:42 BP 118/72 02/15/24 09:42 Pulse Ox 96 02/15/24 09:42 Oxygen Delivery Method Room Air 02/15/24 09:42 BMI result Body Mass Index 27.0 Tobacco/Smoking Status: Tobacco use Status Tobacco use date assessed 02/15/24 02/15/24 09:55 Patient Tobacco Use Status Current someday Tobacco ( 02/15/24 09:43 somedays not all) e-Cigarette/Vaping Use Never Used 02/15/24 09:43 PHQ-9: PHQ-9 Score PHQ-9: Total score 11 02/15/24 10:06 Depression Screening Interpretation: Positive Thrive Assessment: Date of Thrive Assessment Date Thrive assessed 02/15/24 02/15/24 09:55 Const General: no acute distress, well developed, alert and awake Nutritional Appearance: well nourished Orientation/consciousness: patient oriented x3 HENMT Head: Yes normocephalic and Yes atraumatic Ears: hearing grossly normal bilaterally and TM's normal bilaterally General nose exam: Normal external nose present and Normal nares present Mouth: Normal oral and palatal mucosa present and moist mucous membranes Teeth and gingiva: dentition normal Throat: Yes posterior oropharynx normal Eyes General: appearance normal, both eyes and all related structures Pupils: Equal, round and reactive pupils present and Pupil accommodation reflex normal EOM: EOMs intact bilaterally Neck Neck: Yes normal visual inspection, Yes no lymphadenopathy and Yes trachea midline Thyroid: Thyroid normal Carotids: no bruits Lymphatic: no lymphadenopathy noted Chest Chest palpation & inspection: normal inspection of the chest Resp Effort & Inspection: normal respiratory effort Auscultation: clear to auscultation bilaterally Cardio Rate: regular rate Rhythm: regular rhythm Heart sounds: S1 normal heart sound present, S2 normal heart sound present, no gallops, no murmurs and no rubs Bruits: no abdominal aortic bruits and no carotid bruits GI Palpation (GI): No Abdominal aortic bruit present, Soft to palpation, nontender, No hepatosplenomegaly present and No Rebound tenderness present Auscultation: normal bowel sounds General: Yes no CVA tenderness Back/Spine/Pelvis Back: no CVA tenderness Cervical Spine: cervical ROM normal and No Cervical spine tenderness Thoracic/Lumbar Spine: thoraco-lumbar ROM normal, No pain with thoraco-lumbar ROM, No thoracic spinal tenderness and No lumbar spinal tenderness Skin Lesions: no lesions Rashes: no rashes Trauma: no lacerations or abrasions Wounds: no wounds Nails: normal Neuro General: patient oriented x3 Cranial nerves: Yes Equal, round and reactive pupils present Cognition (Neuro): normal cognition Gait exam (Neuro): Normal gait present Motor exam (neuro): 5/5 motor strength present throughout Sensory Exam: No Sensory deficit (Neuro) Deep tendon reflexes (DTR's): Right patellar reflex intensity grade: 2+ and Left patellar reflex intensity grade: 2+ Extrem General: Yes normal to inspection and No edema Psych Appearance: grossly normal Affect: normal affect Attitude: cooperative Thought process: Normal thought process present Assessment and Plan Assessment & Plan (1) Fatigue: Code(s): R53.83 - Other fatigue Plan: Still?has?ongoing?fatigue.??I ?have?ordered?labs?including?testosterone?and?thyroid?levels?and?inflammatory?ma mike. We?can?follow-up?by?telemedicine?regarding?this (2) Metastatic renal cell carcinoma: Code(s): C64.9 - Malignant neoplasm of unspecified kidney, except renal pelvis Plan: History?of?RCC?with?Mets?to?lung?and?brain. Has?responded?well?to?treatment He?does?have?a?new?opacity?at?the?left?hilar?region?which?is?hoped?to?be?post?tr eatment?changes?though?recurrence?of?RCC?is?on?differential?and?he?has?upcomi ng?imaging?with Dna [place]. Will?follow?along (3) Tinnitus: Code(s): H93.19 - Tinnitus, unspecified ear Plan: Bilateral?tinnitus,?worse?on?left?side He?notes?this?has?been?ongoing?for?several?years?and?[facility]. Offered?to?refer?him?to?[facility]?speech? and?hearing?for?audiology?testing?but?he?says?he?will?do?this[facility]at[facility]?and?I?en couraged?him?to?do?so. (4) Depression with anxiety: Code(s): F41.8 - Other specified anxiety disorders Plan: Mild?depression?and?patient?says?he?started?working?with?a?therapist?again.??I?e ncouraged?this. I?let?him?know?that?medications?might?help?as?well?and?he?declines?this?for?now. (5) Abnormal lung sounds: Code(s): R09.89 - Other specified symptoms and signs involving the circulatory and respiratory systems Plan: Abnormal?groans?and?crackles?at?left?lung?leon?which?seem?to?clear?with?cough History?of?renal?cell?carcinoma?with?Mets?to?lung?and?brain. He?does?have?a?new?opacity?at?left?hilar?region?which?is?presumed?to?be?post?stefano atment?changes?however?RCC?is?on?the?differential?and?he?h as?upcoming?imaging?for?this. Nevertheless,?given?that?he?says?the?breathing?issues?are?different?in?the?last? couple?of?months?since?having?any?other?imaging,?will?check?a?chest?x-ray. (6) Screening for colon cancer: Code(s): Z12.11 - Encounter for screening for malignant neoplasm of colon Plan: No?colon?cancer?screening?in?the?last?10?years (7) Screening for prostate cancer: Code(s): Z12.5 - Encounter for screening for malignant neoplasm of prostate Plan: He?will?get?his?labs?drawn?and?we?can?follow-up?on?PSA Will?forward?results?to?his?urologist,?Dr. Talley (8) Adult general medical exam: Code(s): Z00.00 - Encounter for general adult medical examination without abnormal findings Plan: 63-year-old?male?presents?for?an?extended?exam Encouraged?healthy?diet?with?active?lifestyle?and?plenty?of?exercise Orders: Orders XR chest 2V Today R09.89 - Other specified symptoms and signs involving the circulatory and respiratory systems Referrals Gastroenterology Referral Z12.11 - Encounter for screening for malignant neoplasm of colon Coding Level of Care Code Est Pt Level 4 (02719) Diagnoses Fatigue R53.83 Metastatic renal cell carcinoma C64.9 Tinnitus H93.19 Depression with anxiety F41.8 Abnormal lung sounds R09.89 Screening for colon cancer Z12.11 Screening for prostate cancer Z12.5 Adult general medical exam Z00.00 Additional Codes XAVIER-7 Assessment Billing - XAVIER-7 Assessment Tool: XAVIER-7 Assessment 08314 ([id number])
== END 2024-02-15 10:30 | disposition home or self-care (01) ==
PROVIDERS: PCP Family Medicine; Visit Provider Family Medicine
DX: Z00.00 Encounter for general adult medical examination without abnormal findings (principal); R53.83 Other fatigue; C64.9 Malignant neoplasm of unspecified kidney, except renal pelvis; R09.89 Other specified symptoms and signs involving the circulatory and respiratory systems; H93.13 Tinnitus, bilateral; F41.8 Other specified anxiety disorders; Z12.11 Encounter for screening for malignant neoplasm of colon; Z12.5 Encounter for screening for malignant neoplasm of prostate
CPT/HCPCS: 99214; 99396

== ENCOUNTER 2024-08-31 15:06 | Outpatient (AMB) | payer MEDICARE, SELFPAY ==
--- OUTSIDE RECORDS SUMMARY | 2024-08-31 15:08 | XMS_ITS | Encounter Summary ---
Author Name [facility] [place] [facility] [place] [facility] [facility] [place] Address [address] [place] [address] Support Name Relationship Address Phone LAKSHMI ROSARIO Next of Kin [address] [place], [place] [id number] LAKSHMI ROSARIO Emergency Contact [address] [place] [address] Selected Encounter This section includes the information on record at [place] for the Encounter. Date/Time Encounter Type Encounter Description Reason Pro vider Source Nov 24, 2023 12:00 AM Outpatient Encounter EVENT (HISTORICAL) IHE Encounter Template Text not used by [place]
--- OUTSIDE RECORDS SUMMARY | 2024-08-31 15:08 | XMS_ITS | Encounter Summary ---
Author Name [facility] [place] [facility] [place] [facility] [place] Address [address] [place] [address] Support Name Relationship Address Phone LAKSHMI ROSARIO Next of Kin [address] [place] [address] LAKSHMI ROSARIO Emergency Contact [address] [place], [place] [phone] Selected Encounter This section includes the information on record at [place] for the Encounter. Date/Time Encounter Type Encounter Description Reason Pro vider Source Oct 29, 2023 11:04 AM Outpatient Encounter PRIMARY CARE/MEDICINE IHE Encounter Template Text not used by [place] Plan of Treatment: Future Appointments (+ 6 months) and Future Tests (+/- 45 days) The Plan of Treatment section includes future care activities for the patient from all [place] treatmentfacilities. This section includes future appointments and future orders which are active, pending or scheduled. Future Appointments This section includes appointments that were scheduled to occur 6 months from the date of the Encounter, up to a maximum of 20 appointments. The data comes from all [place] treatment facilities. Appointment Date/Time Appointment Type Appointme nt Facility Name Nov 24, 2023 01:00 PM AMBULATORY - MEDICINE [facility] Encounter Notes: All associated encounter notes This section contains the clinical notes associated to the Encounter. Date/Time Encounter Note(s) Provider Source Oct 29, 2023 11:08 AM ADDENDUM: LOCAL TITLE: Addendum STANDARD TITLE: ADDENDUM DATE OF NOTE: OCT 29, 2023@11:08:21 ENTRY DATE: OCT 29, 2023@11:08:22 AUTHOR: MICHELLE MCCRAY COSIGNER: URGENCY: STATUS: COMPLETED NEW PT APPT SCHEDULED FOR 11/12/23 @1400 WITH PACT 3 NEW PT PACKET HANDED TO AND NEW PT LETTER MAILED. [facility] OUTS[facility] PROVIDER IS: DR. CUAUHTEMOC JOSE MD [address],[place] [address] /[phone](FAX) /es/ MICHELLE MCCRAY ADVANCED WASTE/MATERIALS EXCHANGE SPECIALIST Signed: 10/29/2023 12:36 Receipt Acknowledged By: 10/29/2023 12:53 /es/ Lakshmi Yusuf RN Registered Nurse (RN) 10/29/2023 13:22 /es/ DENYS CHESTER PA-C STAFF PHYSICIAN DRUM STOCK CLERK 10/29/2023 13:11 /es/ AZAEL CHAPA LPN LICENSED PRACTICAL NURSE 11/02/2023 10:14 /es/ LAUREN BUTCHER Advanced Gas Cutting Machine Operator ======== --- Original Document --- 10/29/23 PATIENT LETTER (B): [facility] [address] [place] [phone] * [phone] * ANA MARIA GARCIA [place], [place] [address] Date: OCT 29, 2023 Dear [place]: Welcome to patient aligned care team 3 (PACT 3) with CAR ATTENDANT DENYS CHESTER Prior to meeting you at your new patient appointment we are requesting some of your past medical history so that we may provide you with the exceptional care you deserve. Please note that it is very helpful to have these documents at least two days prior to your appointment date as the more information, we have the better we will be able to meet your needs: * Last History & Physical * Immunization records * Medication list * Diagnosis list * Most recent labs * Diagnostic screens (Colonoscopy, Abdominal Aortic Aneurysm screen, Mammograms, PAPS, etc.) You may either drop the requested records off in person to [address] [place] [address] or you may have them faxed to: [phone] ATTN: PACT 3 *Also please complete the enclosed new patient packet and drop it off at our [place] location: [address] [place] [address]* If you have any questions, please do not hesitate to contact the [facility] [place] call center at . We look forward to providing your health care! Sincerely, Office Staff for: [facility] [place] [facility] [address] [place] [id number] T [phone] F [phone] Upcoming Appointments: 11/12/2023 14:00 CWM/SO/PACT 3 APPOINTMENT [facility] [place] (SPOP[facility] OR SO = [address]) (GOPC OR GO = [address]) ([facility] = [facility]) (VVC - Video Call) (Tel-X Telephone Visit) ( - Telehealth) 10/29/2023 ADDENDUM STATUS: COMPLETED Medical records requeseted /es/ LAUREN BUTCHER Advanced Gas Cutting Machine Operator Signed: 10/29/2023 13:10 MICHELLE MCCRAY Oct 29, 2023 11:04 AM LETTERS: LOCAL TITLE: PATIENT LETTER (B) STANDARD TITLE: LETTERS DATE OF NOTE: OCT 29, 2023@11:04 ENTRY DATE: OCT 29, 2023@11:04:51 AUTHOR: MICHELLE MCCRAY EXP COSIGNER: URGENCY: STATUS: COMPLETED PATIENT LETTER (B) Has ADDENDA [facility] [address] [place] [id number] [phone] * [phone] * ANA MARIA Brunson [address] [place] [address] Date: OCT 29, 2023 Dear : Welcome to patient aligned care team 3 (PACT 3) with CAR ATTENDANT DENYS CHESTER Prior to meeting you at your new patient appointment we are requesting some of your past medical history so that we may provide you with the exceptional care you deserve. Please note that it is very helpful to have these documents at least two days prior to your appointment date as the more information, we have the better we will be able to meet your needs: * Last History & Physical * Immunization records * Medication list * Diagnosis list * Most recent labs * Diagnostic screens (Colonoscopy, Abdominal Aortic Aneurysm screen, Mammograms, PAPS, etc.) You may either drop the requested records off in person to [address] [place] [address] or you may have them faxed to: [phone] ATTN: PACT 3 *Also please complete the enclosed new patient packet and drop it off at our [place] location: [address] [place] [address]* If you have any questions, please do not hesitate to contact the [facility] [place] call center at . We look forward to providing your health care! Sincerely, Office Staff for: [facility] [place] [facility] [address] [place] [phone] T [phone] F [phone] Upcoming Appointments: 11/12/2023 14:00 CWM/SO/PACT 3 APPOINTMENT [facility] [place] ([facility] OR SO = [place], [address] [facility]) (GOP[facility] OR GO = [place], [facility]) ([facility] = [facility]) (VVC - Video Call) (Tel-X Telephone Visit) (TH - Telehealth) 10/29/2023 ADDENDUM STATUS: COMPLETED NEW PT APPT SCHEDULED FOR 11/12/23 @1400 WITH PACT 3 NEW PT PACKET HANDED TO AND NEW PT LETTER MAILED. [facility] OUT[facility]IDE PROVIDER IS: DR. CUAUHTEMOC JOSE MD [facility] [address] [facility],[place] [address] /[phone](FAX) /howard/ MICHELLE MCCRAY ADVANCED WASTE/MATERIALS EXCHANGE SPECIALIST Signed: 10/29/2023 12:36 Receipt Acknowledged By: 10/29/2023 12:53 /es/ Lakshmi Yusuf, LUIZ Registered Nurse (RN) * AWAITING SIGNATURE * DENYS CHESTER 10/29/2023 13:11 /es/ AZAEL CHAPA LPN LICENSED PRACTICAL NURSE * AWAITING SIGNATURE * LAUREN BUTCHER 10/29/2023 ADDENDUM STATUS: COMPLETED Medical records requeseted /howard/ LAUREN BUTCHER Advanced Gas Cutting Machine Operator Signed: 10/29/2023 13:10 MICHELLE MCCRAY
--- OUTSIDE RECORDS SUMMARY | 2024-08-31 15:08 | XMS_ITS | Continuity of Care Document ---
Author Name [facility] Organization [facility] Care Team Providers Care C Unix Developer Name Role Phone [facility] Unavailable Unavailable Problems Combined list of problems from Department of Defense and Veterans Affairs facilities. It does not include entries that were removed or entered in error. Problem Status Onset Date Problem Type Date of Resolution Comments Source Benign prostatic hyperplasia Active Condition [place] Chronic osteoarthritis Active Condition Nov 24, 2023 Entered By: DENYS CHESTER Comment: OA, C-Spine w/o Spin Stenosis; Neck Pain Non-Radicular as of DEC 11 [place] Hypercholesterolemia Active Condition [place] Plantar fasciitis Active Condition Ma r 2023 Entered By: DENYS CHESTER Comment: Plantar Fasciitis, R Foot; Has Done CCS Inj.'s via Podiatry [place] Primary erectile dysfunction Active Condition [place] Renal cell carcinoma Active Condition Nov 24, 2023 Entered By: DENYS CHESTER Comment: RCC, R Side: Dx'd 2015; Eight Yrs Out as of 2023;Nov 24, 2023 Entered By: DENYS CHESTER Comment: Still Sees [facility]CO at [facility] as of Nov Entered By: DENYS CHESTER Comment: s/p Nephrectomy, R Side 2015; Thereafter METS Noted Lungs and BrainNov 24, 2023 Entered By: DENYS CHESTER Comment: Craniotomy Done 2015; Bilat Lung Nodules Resected 2023 Entered By: DENYS CHESTER Comment: IVC Filter Placed R Fem Artery after He Had a DVT, R Calf in 2023 Entered By: DENYS CHESTER Comment: Still on DOAG as or Nov Entered By: DENYS CHESTER Comment: Plan is to Remove IVC Filter End DEC 11; Will Remain on DOAG Thereafter [place] Tobacco user Active Condition Nov 24, 2023 Entered By: DENYS CHESTER Comment: Used to Smoke Daily; Now Just Occasionally as of DEC 11 [place] Diagnosis: ICD-10-CM C64.9 Malignant neoplasm of unsp kidney, except renal pelvis Active Diagnosis [place] Medications Combined list of outpatient medications from [facility] facilities.Medications provided include 1) outpatient medications from the last 15 months, and 2) patient-reported medications. Medication Details Route Status Patient Instructions Prescription Expires Prescription Number Last Dispense Date Ordering Provider Order Date Order Qty Source APIXABAN 5MG TAB TAKE ONE TABLET BY MOUTH EVERY 12 HOURS ORAL ACTIVE ANGY CHESTER 2023 [facility] IELD EZETIMIBE 10MG TAB TAKE ONE TABLET BY MOUTH ONCE DAILY ORAL ACTIVE NEMOANGY 2023 [facility] IELD SILDENAFIL CITRATE 100MG TAB TAKE ONE TABLET BY MOUTH DIRECTED ORAL ACTIVE NEMOANGY 2023 [facility] IELD Vital Signs Combined list of inpatient and outpatient Vital Signs from [facility], ranging from 12 months to all on record, depending upon the facility. Vital Sign Value Date Comments Source SYSTOLIC BLOOD PRESSURE 116 11/24/2023 13:31:31 [place] DIASTOLIC BLOOD PRESSURE 79 11/24/2023 13:31:31 [place] PULSE OXIMETRY 96 11/24/2023 13:31:31 [facility] 189 11/24/2023 13:31:31 [facility] BMI 27kg/m2 11/24/2023 13:31:31 [place] HEIGHT 70 11/24/2023 13:31:31 [place] TEMPERATURE 11/24/2023 13:31:31 [facility] PULSE 82 11/24/2023 13:31:31 [place] RESPIRATION 18 11/24/2023 13:31:31 [place] Encounters Combined list of: 1) Encounters from [facility] facilities going back up to thelast 18 months. 2) Encounters from the [facility] facilities going back up to 280 months. Location Location Details Encounter Type Encounter Number Reason For Visit Attending Provider ADM Date DC Date Status Disposition Source [facility] Outpatient Encounter [id number] 08/25 [facility] [place] [facility] [facility] [place] [facility] Outpatient Encounter [id number] 09/06 [place] [facility] [place] [facility] [place] [facility] Outpatient Encounter [id number] 09/16 [facility] Outpatient Encounter [id number] 10/29 [facility] Outpatient Encounter [id number] 11/23 [facility] [place] [facility] LD OFFICE O/P EST MOD 30 MIN [id number] Diagnos is: ICD-10- CM C64.9 Maligna nt neoplas m of unsp kidney, except renal pelvis< br/> ELIECER CHESTER 11/23 [facility]ELD [facility] [place] Outpatient Encounter [id number] 06/06 [facility] [place] [facility] [place] Outpatient Encounter [id number] 06/08 [facility] [place] [facility] Social History Combined list of available smoking, tobacco, and other social history from Department of Defense and Veterans Affairs facilities. Social History Type Response Date Comment Sourc e Tobacco smoking status NHIS VA-TOBACCO USER SOME DAYS 03/0 02/2024 [place] History of tobacco use VA-TOBACCO USE WI 30 MIN OF WAKEUP 11/24/2023 [place] Plan of Care List of future care activities from Department of Veterans Affairs facilities. Additional future care activities may be listed in the Assessment and Plan section. Date/Time Care Activity Care Activity Detail Facili ty 09/14/2024 AMBULATORY - MEDICINE AMBULATORY - MEDICI NE [place] 09/08/2024 Laboratory - Chemistry Order URIC ACID BL OOD (SST-SERUM) SP [place] 09/08/2024 Laboratory - Chemistry Order CBC AND DIFF (AUTO) BLOOD (LAV-BLOOD) SP [place] 09/08/2024 Laboratory - Chemistry Order VIT CASTANEDA D (25-OH) BLOOD (SST-SERUM) SP ONCE [place] 09/08/2024 Laboratory - Chemistry Order RET ICULOCYTES BLOOD (LAV-BLOOD) SP [place] 09/08/2024 Laboratory - Chemistry Order FERRITIN BLO OD (SST-SERUM) SP [place] 09/08/2024 Laboratory - Chemistry Order HEM OGLOBIN A1C PANEL BLOOD (LAV-BLOOD) SP [place] 09/08/2024 Laboratory - Chemistry Order PSA BLOOD (S ST-SERUM) SP [place] 09/08/2024 Laboratory - Chemistry Order URINALYSIS U RINE SP [place] 09/08/2024 Laboratory - Chemistry Order AHSAN ROALBUMIN CREATININE RATIO PANEL URINE (RANDOM) SP [place] 09/08/2024 Laboratory - Chemistry Order HIV 1&2 Ag/Ab SCREEN BLOOD (SST-SERUM) SP [place] 09/08/2024 Laboratory - Chemistry Order HEP ATITIS C ANTIBODY (HCV)-ARC BLOOD (MARBLED-TOP SERUM) SP ONCE [place] 09/08/2024 Laboratory - Chemistry Order BAS IC METABOLIC PANEL (fasting) BLOOD (SST-SERUM) SP [place] 09/08/2024 Laboratory - Chemistry Order OPAL ER FUNCTION BLOOD (SST-SERUM) SP [place] 09/08/2024 Laboratory - Chemistry Order LIP ID PANEL FASTING BLOOD (SST-SERUM) SP [place] 09/08/2024 Laboratory - Chemistry Order CALCIUM BLOO D (SST-SERUM) [facility]
--- OUTSIDE RECORDS SUMMARY | 2024-08-31 15:09 | XMS_ITS ---
Author Name [facility] [place] [facility] Address [address] [place] [id number] Support Name Relationship Address Phone MARLENE LAKSHMI Next of Kin [address] [place] [address] LAKSHMI ROSARIO Emergency Contact [address] [place] [address] Selected Encounter This section includes the information on record at [place] for the Encounter. Date/Time Encounter Type Encounter Description Reason Pro vider Source Jun 08, 2024 10:58 AM Outpatient Encounter ADMIN PAT ACTIVTIES (MASNONCT) I[facility] Encounter Template Text not used by [place] Plan of Treatment: Future Appointments (+ 6 months) and Future Tests (+/- 45 days) The Plan of Treatment section includes future care activities for the patient from all [place] treatmentfacilities. This section includes future appointments and future orders which are active, pending or scheduled. Future Appointments This section includes appointments that were scheduled to occur 6 months from the date of the Encounter, up to a maximum of 20 appointments. The data comes from all [place] treatment facilities. Appointment Date/Time Appointment Type Appointme nt Facility Name Sep 14, 2024 08:30 AM AMBULATORY - MEDICINE [facility] Encounter Notes: All associated encounter notes This section contains the clinical notes associated to the Encounter. Date/Time Encounter Note(s) Provider Source Jun 08, 2024 10:58 AM ADMINISTRATIVE NOTE: LOCAL TITLE: CCC: SCHEDULING ADMINISTRATION STANDARD TITLE: ADMINISTRATIVE NOTE DATE OF NOTE: JUN 08, 2024@10:58:43 ENTRY DATE: JUN 08, 2024@10:58:43 AUTHOR: GLENDY DE LEON EXP COSIGNER: URGENCY: STATUS: COMPLETED CCC: SCHEDULING ADMINISTRATION Has ADDENDA Patient Demographics Patient Name: ANA MARIA ROSARIO Patient Primary Phone: [phone] Patient Primary Address: Rami[address] GARCIA [facility] [place] [address] Patient : 1960 Patient Age: 63 Caller/Recipient Relation to Patient: Self Administrative Administrative Note Comments: [place] rescheduled pact clinic cancellation. First available was week of Sep 11 so vet will need new lab orders entered. FYI. IMPORTANT: This note was created by [facility] Clinical Contact Center staff. Please do not alert the staff member by adding them as a signer for future communications. Alerts are not monitored by this user. /howard/ Glendy ROSEN 1 [facility] Signed: 06/08/2024 10:58 Receipt Acknowledged By: 06/09/2024 14:17 /howard/ SHILPA VILLAVICENCIO LPN LPN 06/12/2024 13:36 /howard/ NEW MALLOY RN REGISTERED NURSE 06/09/2024 ADDENDUM STATUS: COMPLETED Labs have been updated. /howard/ SHILPA VILLAVICENCIO LPN LPN Signed: 06/09/2024 14:17 GLENDY DE LEON [facility]
--- OUTSIDE RECORDS SUMMARY | 2024-08-31 15:09 | XMS_ITS | Encounter Summary ---
Author Name [facility] [place] [facility] [place] Address [address] [place] [address] Support Name Relationship Address Phone LAKSHMI ROSARIO Next of Kin [address] [place] [address] LAKSHMI ROSARIO Emergency Contact [address] [place] [address] Selected Encounter This section includes the information on record at [place] for the Encounter. Date/Time Encounter Type Encounter Description Reason Pro vider Source Sep 16, 2023 12:00 AM Outpatient Encounter EVENT (HISTORICAL) [facility] Encounter Template Text not used by [place] Plan of Treatment: Future Appointments (+ 6 months) and Future Tests (+/- 45 days) The Plan of Treatment section includes future care activities for the patient from all [place] treatmentfacilities. This section includes future appointments and future orders which are active, pending or scheduled. Future Appointments This section includes appointments that were scheduled to occur 6 months from the date of the Encounter, up to a maximum of 20 appointments. The data comes from all [place] treatment facilities. Appointment Date/Time Appointment Type Appointme nt Facility Name Nov 24, 2023 01:00 PM AMBULATORY - MEDICINE [facility]
--- OUTSIDE RECORDS SUMMARY | 2024-08-31 15:09 | XMS_ITS | Encounter Summary ---
Author Name [facility] Organization [facility] [place] Address [address] [place] [address] Support Name Relationship Address Phone MARLENE LAKSHMI Next of Kin [address] [place] [address] LAKSHMI ROSARIO Emergency Contact [address] [place], [place] [phone] Selected Encounter This section includes the information on record at [place] for the Encounter. Date/Time Encounter Type Encounter Description Reason Pro vider Source Jun 06, 2024 02:28 PM Outpatient Encounter PRIMARY CARE/MEDICINE [facility] Encounter Template Text not used by [place] Plan of Treatment: Future Appointments (+ 6 months) and Future Tests (+/- 45 days) The Plan of Treatment section includes future care activities for the patient from all [place] treatmentfacilities. This section includes future appointments and future orders which are active, pending or scheduled. Future Appointments This section includes appointments that were scheduled to occur 6 months from the date of the Encounter, up to a maximum of 20 appointments. The data comes from all [place] treatment facilities. Appointment Date/Time Appointment Type Appointme nt Facility Name Sep 14, 2024 08:30 AM AMBULATORY - MEDICINE [facility] Encounter Notes: All associated encounter notes This section contains the clinical notes associated to the Encounter. Date/Time Encounter Note(s) Provider Source Jun 06, 2024 02:29 PM ADMINISTRATIVE NOT E: LOCAL TITLE: ADMINISTRATIVE NOTE STANDARD TITLE: ADMINISTRATIVE NOTE DATE OF NOTE: JUN 06, 2024@14:29 ENTRY DATE: JUN 06, 2024@14:29:05 AUTHOR: RACHELLE POSADAS EXP COSIGNER: URGENCY: STATUS: COMPLETED Outer Diameter Grinder called to [ ] Schedule primary care appt [X} Reschedule primary care appt. [ ] Remind of upcoming primary care appt. SPOKE WITH: [X} Fasting blood work needed, and vet reminded. [ ] Non fasting blood work needed, and vet reminded. [ ] No labs needed. [ ] UNABLE TO REACH : [ ] Left voicemail. [X} Unable to leave voicemail. [ ] No phone number available/no working phone number [X} Mailed Letter /howard/ RACHELLE POSADAS [facility] Signed: 06/06/2024 14:29 RACHELLE POSADAS [place] Jun 06, 2024 02:28 PM LETTERS: LOCAL TITLE: PATIENT LETTER (B) STANDARD TITLE: LETTERS DATE OF NOTE: JUN 06, 2024@14:28 ENTRY DATE: JUN 06, 2024@14:28:09 AUTHOR: RACHELLE POSADAS EXP COSIGNER: URGENCY: STATUS: COMPLETED [facility] Outpatient [address] [address] [phone] * ANA MARIA ROSARIO [address] [place], [place] [address] Date: JUN 06, 2024 Dear : Our goal at the [facility] is to provide you with quality medical care. We have been trying to reach you unsuccessfully to schedule a Primary care appt with you at the [facility], [address] [place] [address] Please call us at Wednesday through Wednesday, 8am-4pm to schedule this appointment. Sincerely, Office Staff for: Primary Care [facility] [address] [place] [id number] T [phone] F [phone] RACHELLE POSADAS [place]
--- OUTSIDE RECORDS SUMMARY | 2024-08-31 15:09 | XMS_ITS | Encounter Summary ---
Author Name [facility] [place] Organization [facility] [place] Address [address] [place] [address] Support Name Relationship Address Phone MARLENE LAKSHMI Next of Kin [address] [place] [address] LAKSHMI ROSARIO Emergency Contact [address] [place], [place] [phone] Selected Encounter This section includes the information on record at [place] for the Encounter. Date/Time Encounter Type Encounter Description Reason Pro vider Source Sep 06, 2023 12:00 AM Outpatient Encounter EVENT (HISTORICAL) [facility] Encounter Template Text not used by [place] Plan of Treatment: Future Appointments (+ 6 months) and Future Tests (+/- 45 days) The Plan of Treatment section includes future care activities for the patient from all [place] treatmentfacilities. This section includes future appointments and future orders which are active, pending or scheduled. Future Appointments This section includes appointments that were scheduled to occur 6 months from the date of the Encounter, up to a maximum of 20 appointments. The data comes from all [place] treatment facilities. Appointment Date/Time Appointment Type Appointme nt Facility Name Nov 24, 2023 01:00 PM AMBULATORY - MEDICINE [facility] Encounter Notes: All associated encounter notes This section contains the clinical notes associated to the Encounter. Date/Time Encounter Note(s) Provider Source Sep 06, 2023 12:00 AM NONVA NOTE: LOCAL TITLE: NON-VA OUTPATIENT NOTES STANDARD TITLE: NONVA NOTE DATE OF NOTE: SEP 06, 2023 ENTRY DATE: DEC 02, 2023@15:04:26 AUTHOR: ROBERTO MARIA COSIGNER: URGENCY: STATUS: COMPLETED VistA Imaging - Scanned Document SCANNED DOCUMENT SIGNATURE NOT REQUIRED Electronically Filed: 12/02/2023 by: ROBERTO MARTINEZ [facility]
--- OUTSIDE RECORDS SUMMARY | 2024-08-31 15:09 | XMS_ITS | Encounter Summary ---
Author Name [facility] [place] [facility] [facility] [place] Address [address] [place] [address] Support Name Relationship Address Phone LAKSHMI ROSARIO Next of Kin [address] [place] [address] LAKSHMI ROSARIO Emergency Contact [address] [place], [place] [phone] Selected Encounter This section includes the information on record at [place] for the Encounter. Date/Time Encounter Type Encounter Description Reason Provider Source Nov 24, 2023 01:00 PM OFFICE O/P EST MOD 30 MIN PRIMARY CARE/MEDICINE ICD-10-CM C64.9 Malignant neoplasm of unsp kidney, except renal pelvis DENYS CHESTER Rufino Encounter Template Text not used by [place] Assessments - Encounter Diagnoses This section includes the primary and secondary diagnoses documented for the Encounter. Date/Time Primary/Secondary Diagnosis Diagnosis Name Provider Source Nov 24, 2023 02:05 PM PRIMARY Malignant neoplasm of unsp kidney, except renal pelvis DENYS CHESTER Nov 24, 2023 02:05 PM SECONDARY Pure hypercholesterolemi a, unspecified DENYS CHESTER [place] Nov 24, 2023 02:05 PM SECONDARY Tobacco use DENYS CHESTER [place] Vital Signs: All taken on the encounter date This section contains inpatient and outpatient Vital Signs collected on the date of the Encounter. Date/Time Temperature Pulse Blood Pressure Respiratory Rate SP02 Pain Height Weight Body Mass Index Source Nov 24, 2023 01:31 PM 82 116/79 18 96 70 189 27 [place] Social History: Smoking Status (Most current) and Tobacco Use (All prior to encounter date) This section includes the most current, and the historical, smoking and tobacco- related health factors from the [place] facility where the Encounter took place. Current Smoking Status This section includes the most current smoking, or tobacco-related health factor, from the [place] facility where the Encounter took place. Date/Time Current Smoking Status Comment [facility]il [facility] Nov 24, 2023 01:00 PM VA-TOBACCO USER SOME DAYS [place] Tobacco Use History This section includes a history of the smoking, or tobacco-related health factors, that were collected on or before the date of the Encounter. The data comes from the [place] facility where the Encounter took place. Date/Time Smoking Status/Tobacco Use Comment F acility Nov 24, 2023 01:00 PM VA-TOBACCO USE ADVICE [place] Nov 24, 2023 01:00 PM VA-TOBACCO USE DIRECTOR EDUCATIONAL RADIO NO [place] Nov 24, 2023 01:00 PM VA-TOBACCO USE MED NO [place] Nov 24, 2023 01:00 PM VA-TOBACCO USE WI 30 MIN OF WAKE UP [place] Nov 24, 2023 01:00 PM VA-TOBACCO USER SOME DAYS [place] Encounter Notes: All associated encounter notes This section contains the clinical notes associated to the Encounter. Date/Time Encounter Note(s) Provider Source Nov 24, 2023 01:23 PM PREVENTIVE MEDICIN E NURSING NOTE: LOCAL TITLE: CLINICAL REMINDERS/NURSING STANDARD TITLE: PREVENTIVE MEDICINE NURSING NOTE DATE OF NOTE: NOV 24, 2023@13:23 ENTRY DATE: NOV 24, 2023@13:24:02 AUTHOR: AZAEL CHAPA EXP COSIGNER: URGENCY: STATUS: COMPLETED Tobacco Pack Year History: Patient currently uses cigarettes: How many years has the patient smoked? # of years 16 Average number of packs/day over the entire time patient smoked: Packs/day 0.15 Advance Directive Screen MH AD: Patient does not have a completed advance directive on file at any facility, [place] or outside. S/he is not interested in completing one at this time. The patient received education about Advance Directives and written notification of his/her rights. Influenza Immunization: The patient declines to receive the recommended dose of seasonal influenza vaccine. Immunization: INFLUENZA, UNSPECIFIED FORMULATION Refusal Reason: PATIENT DECISION Patient refuses all immunization(s) in the FLU group Date Documented: 11/24/23 13:24 COVID-19 Immunization: Vaccine given previously - no written/electronic documentation available Comment: I have it at home The patient was instructed to bring a copy of their COVID-19 vaccine information to their next appointment so that this can be accurately recorded in their [place] medical record. Tdap Immunization: The patient may have been vaccinated in the past but written documentation of vaccination is not available today. Patient instructed to obtain a written record of the prior vaccine and bring it to the next appointment. Herpes Zoster (Shingles) Vaccine: The patient declines to receive the recommended dose of zoster (shingles) vaccine. Immunization: ZOSTER RECOMBINANT Refusal Reason: PATIENT DECISION Patient refuses all immunization(s) in the ZOSTER group Date Documented: 11/24/23 13:29 RHS Screen: RHS Screen Environmental Check Upon inquiry, the individual reports that the environment is safe to proceed. Informed Consent to Screen and Document The individual consents to proceed with screening. The individual consents to documentation of responses. PRIMARY SCREEN: In the past 12 months, how often did a current or former intimate partner (e.g., boyfriend, girlfriend, , , sexual partner): 1. Scream or curse at you Never 2. Insult or talk down to you Never 3. Threaten you with harm Never 4. Physically hurt you Never 5. Force or pressure you to have sexual contact against your will, or when you were unable to say no Never ?? The HITS tool (items 1-4 above) is [place] copyright protected by Jason Weinstein MD, and the user has full rights to use it throughout the [place] system. PRIMARY SCREEN RESULT: The Primary Screen is NEGATIVE. The individual answered never to all forms of IPV above (i.e., answered never to all 5 items) The individual accepts education and/or resources: No EDUCATION: Other: HIV Screening: Patient has given verbal consent for HIV antibody testing, and the risks, benefits, and alternatives to HIV testing have been discussed. An order for an HIV Antibody test has been entered - see orders tab,orderd by pcp. Lipid Screening: Lipid profile ordered at this encounter,by pcp /[place]ard/ AZAEL CHAPA LPN LICENSED PRACTICAL NURSE Signed: 11/24/2023 13:38 AZAEL CHAPA Nov 24, 2023 01:13 PM PHYSICIAN ALECIA Crawford NOTE: LOCAL TITLE: BRYANT NOTE STANDARD TITLE: PHYSICIAN CERTIFIED LACTATION COUNSELOR NOTE DATE OF NOTE: NOV 24, 2023@13:13 ENTRY DATE: NOV 24, 2023@13:14:01 AUTHOR: DENYS CHESTER COSIGNER: URGENCY: STATUS: COMPLETED BRYANT NOTE Has ADDENDA S - 63 y/o M Allergy: NKAM MEDS: see below CC: new pt initial eval HPI: see Problem List PMH: neg CAD/AMI neg HTN neg PVD neg COPD neg Asthma neg Hepatic Disorders Renal Cell CA, R Side w/ METS neg CVA/TIA neg Seizures neg PUD, UGI Bleed neg Anemia, Excess Bleeding, Easy Bruising neg Blood Transfusions neg DM neg Thyroid Disorders possible BPH OA, C-Spine PSH: see Problem list ROS: denies fever, night sweats denies unintended changes WT/appetite denies new fatigue denies new chest pain denies new dyspnea/SOB denies new mental staus changes (or TIA Sx) denies ABD pain denies N/V/D denies chronic or bloody diarrhea denies (chronic) constipation +slow urinary steam denies melena, hematochezia denies new skin lesions or rashes FH: +CAD (father) neg DM neg CRC neg Prostate CA Mil Hx: [employer], AD 1980 - 1983 MOS - [employer] [facility] [employer] - never WIA - never TBI - no [place]: SH: single O - coop A&Ox3 NAD W-N/H/D VS: Stable HEENT: Eyes - PERRL, anicteric OU Ears - EAC clear AU TM clear AU Oropharynx - no petechiae, uvula midline NECK: no adeno no bruits PUL: Resp full, reg, unlabored; CTA B/L COR: RRR, no M ABD: no distention no bruits no tenderness no mass/megaly RECTAL: Prostate firm, contour smooth, lobes symmetric, no nodules is non-tender EXT: no LLE or calf tenderness INTEG: NL texture/turgor NAILS: no clubbing no spooning LABS: not done yet A/P - 1) Normotensive 2) C/V Stable - never [place] 3) Neuro Stable - never CVA/TIA 4) Hypercholesterolemia - on Zetia 5) s/p RIGHT Nephrectomy in 2016 Due to RCC - Managed b [facility] 6) Fall Risk: No 7) Urinary Incontinence: No 8) Probable BPH 9) Tobacco Use - Has Cut Way Back MEDS: Reconciled - has list RTC MAY 2024 - sooner prn Fast Labs Few Days Before Next Visit Suicide Screen: C-SSRS Screening [place]-Suicide Severity Rating Scale (C-SSRS Screener) 1. Over the past month, have you wished you were or wished you could go to sleep and not wake up? No 2. Over the past month, have you had any actual thoughts of killing yourself? No 3. Over the past month, have you been thinking about how you might do this? Response not required due to responses to other questions. 4. Over the past month, have you had these thoughts and had some intention of acting on them? Response not required due to responses to other questions. 5. Over the past month, have you started to work out or worked out the details of how to kill yourself? Response not required due to responses to other questions. 6. If yes, at any time in the past month did you intend to carry out this plan? Response not required due to responses to other questions. 7. In your lifetime, have you ever done anything, started to do anything, or prepared to do anything to end your life (for example, collected pills, obtained a gun, gave away valuables, went to the roof but didn't jump)? No 8. If YES, was this within the past 3 months? Response not required due to responses to other questions. 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 [place] has no concerns about toxic exposure(s) while serving in the Armed Forces. The /caregiver was informed that we will continue to ask this screening question every 5 years. They can contact their provider/healthcare team if they have concerns about exposures and would like to be screened sooner. Printed information was offered and provided if desired. Homelessness/Food Insecurity Screen: In the past 2 months, have you been living in stable housing that you own, rent, or stay in as part of a household? Yes - Living in stable housing. Are you worried or concerned that in the next 2 months you may NOT have stable housing that you own, rent, or stay in as part of a household? No - Not worried about housing near future The [place] reports the following: Within the past 12 months, you worried whether your food would run out before you got money to buy more. Never true Within the past 12 months, the food you bought just didn't last and you didn't have money to get more. Never true Avg Risk Colorectal Cancer Screen: AVERAGE RISK colorectal cancer screening is due based on information available to this clinical reminder Prior/outside colonoscopy results: approx fidelina Date: September, ? Exact date is unknown Average risk screening reminder set 1 year from NOV 24, 2023. Comment: due - gets outside [place] Depression Screening: Perform PHQ-2 A PHQ-2 screen was performed. The score was 0 which is a negative screen for depression. Over the past two weeks, how often have you been bothered by the following problems? 1. Little interest or pleasure in doing things Not at all 2. Feeling down, depressed, or hopeless Not at all HIV Screening: Patient has given verbal consent for HIV antibody testing, and the risks, benefits, and alternatives to HIV testing have been discussed. An order for an HIV Antibody test has been entered - see orders tab. Lipid Screening: Lipid profile ordered at this encounter. MST Screening: Patient denies experiencing sexual trauma (MST). Preferred Language: What is your, or your caregiver's preferred language for healthcare? Preferred Language: Hebrew PTSD Screening: PC-PTSD-5 A PTSD screening test (PC-PTSD-5) was negative (score=0). IN THE PAST MONTH, have you ever had any experience that was so frightening, horrible or traumatic. For example: A serious accident or fire a physical or sexual assault or abuse An earthquake or flood A war Seeing someone be killed or seriously injured Having a loved one through homicide or suicide 1. Have you ever experienced this kind of event? NO 2. Had nightmares about the event(s) or thought about the event(s) when you did not want to? Response not required due to responses to other questions. 3. Tried hard not to think about the event(s) or went out of your way to avoid situations that reminded you of the event(s)? Response not required due to responses to other questions. 4. Been constantly on guard, watchful, or easily startled? Response not required due to responses to other questions. 5. [place] numb or detached from people, activities, or your surroundings? Response not required due to responses to other questions. 6. [place] guilty or unable to stop blaming yourself or others for the event(s) or any problems the event(s) may have caused? Response not required due to responses to other questions. Tobacco Use Screening: The patient uses tobacco but not every day. The patient uses tobacco within 30 minutes of waking up. The patient has been smoking or using tobacco for more than fifteen years and less than thirty years. Patient was advised to quit smoking and/or using tobacco. Discussion with patient included: - Quitting smoking or tobacco use is one of the most important things you can do to protect and improve your health and [place] has the resources to support you. - Set a quit date when you are ready to quit. - Get support from your family and friends. - Review any past quit attempts- What helped? What didn't? - On the day you plan to quit, get rid of all cigarettes and tobacco products from your home, car or work. - Using a combination of behavioral counseling or other support strategies and FDA-approved cessation medications is the most effective way to ensure success in quitting. Patient was offered Behavioral Counseling and other support strategies to assist with quitting. Discussion with patient included: - Behavioral counseling or other support strategies greatly increases your chances of successfully quitting smoking or tobacco use by helping you develop a quit plan and providing support and other strategies to make behavioral changes to help you quit. - [place] has a number of behavioral counseling options to help you with quitting, including: * Provide information about the facility smoking or tobacco use treatment options or clinics * [place]'s national quitline, 1-415-DJCX-VET, with counseling available Wednesday-Wednesday The patient was not interested in receiving additional information about how to use the treatment options discussed. Patient was offered FDA-approved cessation medications. Discussion with patient included: - Medications for Nicotine replacement therapy such as the patch, gum or lozenge, and other medications such as varenicline or bupropion, can play an important role in the initial weeks and months after you quit smoking or tobacco use. - Medications help with cravings and withdrawal symptoms and they greatly increase your chances of successfully quitting. The patient was not interested in a prescription for tobacco cessation medications. Medication Reconciliation: Outpatient: Has the patient been taking medications as documented in the EMLR? YES: The patient has been taking medications as documented in the EMLR. Essential Medication List for Review used to complete this medication reconciliation. INCLUDED IN THIS LIST: Alphabetical list of active outpatient prescriptions dispensed from this [facility] (local) and dispensed from another [place] or [facility] facility (remote) as well as inpatient orders (local, pending and active), local clinic medications, locally documented non-VA medications, and local prescriptions that have or been discontinued in the past 90 days. - All changes in medications, including all non-VA/Herbal/OTC medications were entered into CPRS. Changes: nt - If there were any medications the patient should no longer take, they were discontinued. - The patient/caregiver was instructed to update this list, discard old lists, and take this list to the next appointment, whether with a VA or non-VA provider. Alcohol Use Screen (AUDIT-C): Alcohol Screen: SCREEN FOR ALCOHOL (AUDIT-C) An alcohol screening test (AUDIT-C) was negative (score=0). 1. How often did you have a drink containing alcohol in the past year? Consider a drink to be a 12 ounce can or bottle of regular beer, 8 ounces of malt liquor, a 5 ounce glass of table wine, or a 1.5 ounce shot of liquor (like scotch, gin, or vodka). Never 2. How many drinks containing alcohol did you have on a typical day when you were drinking in the past year? Response not required due to responses to other questions. 3. How often did you have six or more drinks on one occasion in the past year? Response not required due to responses to other questions. Sexual Orientation: The patient thinks of their sexual orientation as: Straight or Heterosexual /howard/ DENYS CHESTER PA-C STAFF PHYSICIAN CERTIFIED LACTATION COUNSELOR Signed: 11/24/2023 14:05 11/24/2023 ADDENDUM STATUS: COMPLETED PE: stasis derm and 1+ oedema R lower leg site of previous dvt /howard/ DENYS CHESTER PA-C STAFF PHYSICIAN CERTIFIED LACTATION COUNSELOR Signed: 11/24/2023 16:36 DENYS CHESTER
--- NOTE | 2024-08-31 15:46 | HO.NEPHOV_ITS ---
Vital Signs 08/31/24 15:47 Height 5 ft 10 in Weight 185 lb 6 oz BMI 26.6 BP 110/70 Blood Pressure Location Lt brachial Position Sitting Pulse 98 Pulse Source Pulse Oximeter Pulse Oximetry (%) 96 Oxygen Delivery Method Room Air Intake Visit Reasons: Pt requested sooner [facility] Grant Specialist Required: No Accompanied by: Self / Same As Patient Allergies environmental Allergy (Unknown, Uncoded 02/15/24 09:47) Cough, sneezing HPI Comments Details: Gigi was seen in follow up for CKD. He has H/O metastatic renal cell cancer and had undergone unilateral nephrectomy( right). He also had lung lesions ( 2016) and craniotomy and brain radiation ( 2022)but has not had any ch emotherapy. He has been followed up in [place]. He is not on any chemotherapy now but had immunotherapy but was causing lung issues forcing it to be stopped. ( Teresa Ayers). He had right DVT post brain surgery and has been on Elquis. He also had Green field filter in right side. He also has been having microscopic hematuria which is intermittent. He is not a diabetic or hypertensive. He is not on any ACEI , ARB or NSAID's. He has no H/O protein in urine , edema. His BP has been at goal. He has no H/O CAD/ CVA/GIO/PAD/ CHF. His serum creatinine has been stable. His urine output is good and does not have any H/O obstructive uropathy. He hydrates himself well. He has no family H/O ESRD or renal transplantation. He is an occasional smoker. He has been having left flank pain.Pain started within a few weeks after imaging studies in [place]( which did not show any left renal lesions). He has no hematuria, dysuria, fever, nausea. He is concerned as he only has one kidney. [facility] Medical History Acute deep vein thrombosis (DVT) Metastatic renal cell carcinoma Surgical History History of lung surgery History of nephrectomy, right S/P craniotomy Family History Father No problems noted. Mother Osteoarthritis Brother No problems noted. Brother No problems noted. Son No problems noted. Daughter No problems noted. Social History Housing: House Alcohol intake: never Patient Tobacco Use Status: Current someday Tobacco user Cigarettes Per Day: 2 e-Cigarette/Vaping Use: Never Used Second Hand Smoke Exposure: No service: Yes Current occupational status: employed Current occupational exposures/hazards: No Cognitive needs: No Hearing needs: No Vision needs: No Review of Systems Const All systems reviewed & are unremarkable except as noted in HPI and below Physical Exam Vital Signs: Last Vital Signs Pulse 98 08/31/24 15:47 BP 110/70 08/31/24 15:47 Pulse Ox 96 08/31/24 15:47 Oxygen Delivery Method Room Air 08/31/24 15:47 BMI result Body Mass Index 26.6 Const General: comfortable and no acute distress Orientation/consciousness: patient oriented x3 HEENT Head: Yes normocephalic Mouth: Normal oral and palatal mucosa present Eyes EOM: EOMs intact bilaterally Neck Neck: Yes supple Resp Auscultation: clear to auscultation bilaterally Cardio Jugular venous distension: no JVD Rate: regular rate GI Palpation (GI): Soft to palpation Auscultation: normal bowel sounds General: Yes no CVA tenderness Back/Spine/Pelvis Back: no CVA tenderness Skin General skin exam: no rashes or lesions noted Neuro General: patient oriented x3 and moves all extremities Extrem General: Yes no pedal edema Assessment & Plan Assessment & Plan (1) Left flank pain: Code(s): R10.9 - Unspecified abdominal pain Category: Medical (2) Acquired solitary kidney: Code(s): Z90.5 - Acquired absence of kidney Category: Medical Plan Has acquired solitary kidney Renal function fairly stable Follows up with Urology/[place] Had imaging - [facility]. On [facility] Has good UO; Had imaging in [place] Needs to keep BP @ goal consistently Good hydration. No NSAID's Answered all questions Urgent Renal USS & Labs ordered Follow up given Orders: Orders US renal BI 1 Day R10.9 - Unspecified abdominal pain Blood Urea Nitrogen 6 Months R10.9 - Unspecified abdominal pain, Z90.5 - Acquired absence of kidney Creatinine 6 Months R10.9 - Unspecified abdominal pain, Z90.5 - Acquired absence of kidney Electrolytes 6 Months R10.9 - Unspecified abdominal pain, Z90.5 - Acquired absence of kidney Calcium 6 Months R10.9 - Unspecified abdominal pain, Z90.5 - Acquired absence of kidney Protein Creatinine Ratio, Ur 6 Months R10.9 - Unspecified abdominal pain, Z90.5 - Acquired absence of kidney Coding Level of Care Code Est Pt Level 4 (58887) Diagnoses Left flank pain R10.9 Acquired solitary kidney Z90.5
[2024-08-31 15:47] VITALS: BP 110/70; PULSE 98; O2SAT 96; BMI 26.6
== END 2024-08-31 16:13 | disposition home or self-care (01) ==
PROVIDERS: PCP Family Medicine; Visit Provider Internal Medicine Nephrology
DX: R10.9 Unspecified abdominal pain (principal); Z90.5 Acquired absence of kidney
CPT/HCPCS: 99214

== ENCOUNTER → 2024-08-31 15:06 | Outpatient (BNVA) | payer MEDICARE, SELFPAY | PROVIDERS: PCP Family Medicine; Visit Provider Internal Medicine Nephrology | DX: R10.9 Unspecified abdominal pain (principal); Z90.5 Acquired absence of kidney | CPT/HCPCS: 99212 ==

== ENCOUNTER 2024-09-01 11:29 | Outpatient (REF) | payer MEDICARE, OTHER, SELFPAY ==
--- NOTE | ~2024-09-01 | US_ITS ---
EXAMINATION: US RETROPERITONEAL LIMITED (RENAL ONLY) CLINICAL INFORMATION: H/O right nephrectomy; ? renal calculus in solitary kidney. COMPARISON: CT scan dated May 03, 2016. TECHNIQUE: Abdominal ultrasound examination of the kidneys was performed. FINDINGS: RIGHT KIDNEY: Not visualized, consistent with reported history of prior surgical removal. LEFT KIDNEY: 14.3 x 6.9 x 5.8 cm (SAG x AP x TRV). The kidney appears unremarkable in size, contour, and echogenicity. Renal cortical thickness is normal. No focal renal parenchymal mass identified. The technologist mead a 0.3 cm, non-shadowing, echogenic structure within the upper pole left kidney. It is uncertain whether this represents normal renal sinus fat versus a non-shadowing stone. No hydronephrosis is demonstrated. URINARY BLADDER: Not imaged. US/US renal BI IMPRESSION: Findings as above. Electronically signed by: Eduardo Levin MD 09/01/2024 04:[address] [facility]
--- OUTSIDE RECORDS SUMMARY | 2024-09-01 11:31 | XMS_ITS ---
Author Name [facility] [place] [facility] [place] [facility] [place] Address [address] [place] [address] Support Name Relationship Address Phone LAKSHMI ROSARIO Next of Kin [address] [place], [place] [phone] LAKSHMI ROSARIO Emergency Contact [address] [place] [address] Selected Encounter This section includes the information on record at [place] for the Encounter. Date/Time Encounter Type Encounter Description Reason Pro vider Source Nov 24, 2023 12:00 AM Outpatient Encounter EVENT (HISTORICAL) IHE Encounter Template Text not used by [place]
--- OUTSIDE RECORDS SUMMARY | 2024-09-01 11:31 | XMS_ITS | Continuity of Care Document ---
Author Name [facility] Organization [facility] Care Team Providers Care Lab Nurse Name Role Phone [facility] Unavailable Unavailable Problems Combined list of problems from Department of Defense and Veterans Affairs facilities. It does not include entries that were removed or entered in error. Problem Status Onset Date Problem Type Date of Resolution Comments Source Benign prostatic hyperplasia Active Condition [place] Chronic osteoarthritis Active Condition Nov 24, 2023 Entered By: DENYS CHESTER Comment: OA, C-Spine w/o Spin Stenosis; Neck Pain Non-Radicular as of DEC 11 [place] Hypercholesterolemia Active Condition [place] Plantar fasciitis Active Condition Ma r 2023 Entered By: DENYS CHESTER Comment: Plantar Fasciitis, R Foot; Has Done CCS Inj.'s via Podiatry [place] Primary erectile dysfunction Active Condition [place] Renal cell carcinoma Active Condition Nov 24, 2023 Entered By: DENYS CHESTER Comment: RCC, R Side: Dx'd 2015; Eight Yrs Out as of 2023;Nov 24, 2023 Entered By: DENYS CHESTER Comment: Still Sees ONCO at [facility] as of Nov Entered By: DENYS CHESTER [...] DEC 11; Will Remain on DOAG Thereafter [place] Tobacco user Active Condition Nov 24, 2023 Entered By: DENYS CHESTER Comment: Used to Smoke Daily; Now Just Occasionally as of DEC 11 [place] Diagnosis: ICD-10-CM C64.9 Malignant neoplasm of unsp kidney, except renal pelvis Active Diagnosis [place] Medications Combined list of outpatient medications from [facility] facilities.Medications provided include 1) outpatient medications from the last 15 months, and 2) patient-reported medications. Medication Details Route Status Patient Instructions Prescription Expires Prescription Number Last Dispense Date Ordering Provider Order Date Order Qty Source APIXABAN 5MG TAB TAKE ONE TABLET BY MOUTH EVERY 12 HOURS ORAL ACTIVE ANGY CHESTER 2023 [facility] IELD EZETIMIBE 10MG TAB TAKE ONE TABLET BY MOUTH ONCE DAILY ORAL ACTIVE NEMOANGY 2023 [facility] IELD SILDENAFIL CITRATE 100MG TAB TAKE ONE TABLET BY MOUTH DIRECTED ORAL ACTIVE NEMOANGY 2023 [facility] IELD Vital Signs Combined list of inpatient and outpatient Vital Signs from [facility], ranging from 12 months to all on record, depending upon the facility. Vital Sign Value Date Comments Source SYSTOLIC BLOOD PRESSURE 116 11/24/2023 13:31:31 [place] DIASTOLIC BLOOD PRESSURE 79 11/24/2023 13:31:31 [place] PULSE OXIMETRY 96 11/24/2023 13:31:31 [facility] WEIGHT 189 11/24/2023 13:31:31 [facility] BMI 27kg/m2 11/24/2023 13:31:31 [place] HEIGHT 70 11/24/2023 13:31:31 [place] TEMPERATURE 11/24/2023 13:31:31 [facility] PULSE 82 11/24/2023 13:31:31 [place] RESPIRATION 18 11/24/2023 13:31:31 [facility] Encounters Combined list of: 1) Encounters from [facility] facilities going back up to thelast 18 months. 2) Encounters from the [facility] facilities going back up to 280 months. Location Location Details Encounter Type Encounter Number Reason For Visit Attending Provider ADM Date DC Date Status Disposition Source [facility] Outpatient Encounter [id number] 08/25 [facility] [place] [facility] Outpatient Encounter [id number] 09/06 [facility] [place] [facility] [place] [facility] Outpatient Encounter [id number] 09/16 [facility] Outpatient Encounter [id number] 10/29 [facility] Outpatient Encounter [id number] 11/23 [facility] [place] LD OFFICE O/P EST MOD 30 MIN [id number] Diagnos is: ICD-10- CM C64.9 Maligna nt neoplas m of unsp kidney, except renal pelvis< br/> ELIECER CHESTER 11/23 [facility] IELD [facility] Outpatient Encounter [id number] 06/06 [facility] [place] Outpatient Encounter [id number] 06/08 [facility] [place] Social History Combined list of available smoking, tobacco, and other social history from Department of Defense and Veterans Affairs facilities. Social History Type Response Date Comment Sourc e Tobacco smoking status NHIS VA-TOBACCO USER SOME DAYS 03/0 02/2024 [place] History of tobacco use VA-TOBACCO USE WI 30 MIN OF WAKEUP 11/24/2023 [place] Plan of Care List of future care activities from Department of Veterans Affairs facilities. Additional future care activities may be listed in the Assessment and Plan section. Date/Time Care Activity Care Activity Detail Facili ty 09/14/2024 AMBULATORY - MEDICINE AMBULATORY - MEDICI NE [place] 09/08/2024 Laboratory - Chemistry Order URIC ACID BL OOD (SST-SERUM) SP [place] 09/08/2024 Laboratory - Chemistry Order CBC AND DIFF (AUTO) BLOOD (LAV-BLOOD) SP [place] 09/08/2024 Laboratory - Chemistry Order VIT CASTANEDA D (25-OH) BLOOD (SST-SERUM) SP ONCE [place] 09/08/2024 Laboratory - Chemistry Order RET ICULOCYTES BLOOD (LAV-BLOOD) SP [place] 09/08/2024 Laboratory - Chemistry Order FERRITIN BLO OD (SST-SERUM) SP [place] 09/08/2024 Laboratory - Chemistry Order HEM OGLOBIN A1C PANEL BLOOD (LAV-BLOOD) SP [place] 09/08/2024 Laboratory - Chemistry Order PSA BLOOD (S ST-SERUM) SP [place] 09/08/2024 Laboratory - Chemistry Order URINALYSIS U RINE SP [place] 09/08/2024 Laboratory - Chemistry Order AHSAN ROALBUMIN CREATININE RATIO PANEL URINE (RANDOM) SP [place] 09/08/2024 Laboratory - Chemistry Order HIV 1&2 Ag/Ab SCREEN BLOOD (SST-SERUM) SP [place] 09/08/2024 Laboratory - Chemistry Order HEP ATITIS C ANTIBODY (HCV)-ARC BLOOD (MARBLED-TOP SERUM) SP ONCE [place] 09/08/2024 Laboratory - Chemistry Order BAS IC METABOLIC PANEL (fasting) BLOOD (SST-SERUM) SP [place] 09/08/2024 Laboratory - Chemistry Order OPAL ER FUNCTION BLOOD (SST-SERUM) SP [place] 09/08/2024 Laboratory - Chemistry Order LIP ID PANEL FASTING BLOOD (SST-SERUM) SP [place] 09/08/2024 Laboratory - Chemistry Order CALCIUM BLOO D (SST-SERUM) [facility]
--- OUTSIDE RECORDS SUMMARY | 2024-09-01 11:31 | XMS_ITS | Encounter Summary ---
Author Name [facility] Address [address] [place] [address] Support Name Relationship Address Phone LAKSHMI ROSARIO Next of Kin [address] [place] [address] LAKSHMI ROSARIO Emergency Contact [address] [place], [place] [phone] Selected Encounter This section includes the information on record at [place] for the Encounter. Date/Time Encounter Type Encounter Description Reason Pro vider Source Oct 29, 2023 11:04 AM Outpatient Encounter PRIMARY CARE/MEDICINE IHE Encounter Template Text not used by [place] Plan of Treatment: Future Appointments (+ 6 months) and Future Tests (+/- 45 days) The Plan of Treatment section includes future care activities for the patient from all [place] treatmentfacilities. This section includes future appointments and future orders which are active, pending or scheduled. Future Appointments This section includes appointments that were scheduled to occur 6 months from the date of the Encounter, up to a maximum of 20 appointments. The data comes from all [place] treatment facilities. Appointment Date/Time Appointment Type Appointme nt Facility Name Nov 24, 2023 01:00 PM AMBULATORY - MEDICINE [facility] Encounter Notes: All associated encounter notes This [...] OUTSIDE PROVIDER IS: DR. CUAUHTEMOC JOSE MD [address],[place] [address] /[phone](FAX) /es/ MICHELLE MCCRAY ADVANCED RETARDER OPERATOR Signed: 10/29/2023 12:36 Receipt Acknowledged By: 10/29/2023 12:53 /es/ Lakshmi Yusuf RN Registered Nurse (RN) 10/29/2023 13:22 /es/ DENYS CHESTER PA-C STAFF PHYSICIAN ADMITTING OFFICE [place] 10/29/2023 13:11 /es/ AZAEL CHAPA LPN LICENSED PRACTICAL NURSE 11/02/2023 10:14 /es/ LAUREN BUTCHER Advanced Credit Risk Analytics Manager ======== --- Original Document --- 10/29/23 PATIENT LETTER (B): [facility] [address] [place] [phone] * [phone] * ANA MARIA GARCIA [place], [place] [address] Date: OCT 29, 2023 Dear [place]: Welcome to patient aligned care team 3 (PACT 3) with SENIOR HEALTH PHYSICS TECHNICIAN DENYS CHESTER Prior to meeting you at [...] the requested records off in person to [address] [place] [address] or you may have them faxed to: [phone] ATTN: PACT 3 *Also please complete the enclosed new patient packet and drop it off at our [place] location: [address] [place] [address]* If you have any questions, please do not hesitate to contact the Department of [place]'s Affairs call center at . We look forward to providing your health care! Sincerely, Office Staff for: Primary Care [facility] [address] [place] [address] T [phone] F [phone] Upcoming Appointments: 11/12/2023 14:00 CWM/SO/PACT 3 APPOINTMENT [facility] [place] (SPOPC OR SO = [address]) (GOPC OR GO = [address]) ([facility] = [facility]) (VVC - Video Call) (Tel-X Telephone Visit) ( - Telehealth) 10/29/2023 ADDENDUM STATUS: COMPLETED Medical records requeseted /es/ LAUREN BUTCHER Advanced Credit Risk Analytics Manager Signed: 10/29/2023 13:10 MICHELLE MCCRAY Oct 29, 2023 11:04 AM LETTERS: LOCAL TITLE: PATIENT LETTER (B) STANDARD TITLE: LETTERS DATE OF NOTE: OCT 29, 2023@11:04 ENTRY DATE: OCT 29, 2023@11:04:51 AUTHOR: MICHELLE MCCRAY EXP COSIGNER: URGENCY: STATUS: COMPLETED PATIENT LETTER (B) Has ADDENDA [facility] [address] [place] [phone] * [phone] * ANA MARIA Brunson MARLENE [address] [place], [place] [address] Date: OCT 29, 2023 Dear : Welcome to patient aligned care team 3 (PACT 3) with SENIOR HEALTH PHYSICS TECHNICIAN DENYS CHESTER Prior to meeting you at [...] the requested records off in person to [address] [place] [address] or you may have them faxed to: [phone] ATTN: PACT 3 *Also please complete the enclosed new patient packet and drop it off at our [place] location: [address] [place] [address]* If you have any questions, please do not hesitate to contact the Department of [place]'s Affairs call center at . We look forward to providing your health care! Sincerely, Office Staff for: Primary Care [facility] [place] [facility] [address] [place] [address] T [phone] F [phone] Upcoming Appointments: 11/12/2023 14:00 CWM/SO/PACT 3 APPOINTMENT [facility] [place] (SPOPC OR SO = [place], [address] [facility]) (GOPC OR GO = [place], [address] [facility]) ([facility] = [facility]) (VVC - Video Call) (Tel-X Telephone Visit) (TH - Telehealth) 10/29/2023 ADDENDUM STATUS: COMPLETED NEW PT APPT SCHEDULED FOR 11/12/23 @1400 WITH PACT 3 NEW PT PACKET HANDED TO AND NEW PT LETTER MAILED. VETERANS OUTSIDE PROVIDER IS: DR. CUAUHTEMOC JOSE MD [facility] [address] [facility],[place] [address] /[phone](FAX) /howard/ MICHELLE MCCRAY ADVANCED RETARDER OPERATOR Signed: 10/29/2023 12:36 Receipt Acknowledged By: 10/29/2023 12:53 /es/ Lakshmi Yusuf, LUIZ Registered Nurse (RN) * AWAITING SIGNATURE * DENYS CHESTER 10/29/2023 13:11 /es/ AZAEL CHAPA LPN LICENSED PRACTICAL NURSE * AWAITING SIGNATURE * LAUREN BUTCHER 10/29/2023 ADDENDUM STATUS: COMPLETED Medical records requeseted /howard/ LAUREN BUTCHER Advanced Credit Risk Analytics Manager Signed: 10/29/2023 13:10 MICHELLE MCCRAY
--- OUTSIDE RECORDS SUMMARY | 2024-09-01 11:31 | XMS_ITS | Encounter Summary ---
Author Name [facility] [facility] [place] Address [address] [place] [address] Support Name Relationship Address Phone LAKSHMI ROSARIO Next of Kin [address] [place] [address] LAKSHMI ROSARIO Emergency Contact [address] [place], [place] [phone] Selected Encounter This section includes the information on record at [place] for the Encounter. Date/Time Encounter Type Encounter Description Reason Provider Source Nov 24, 2023 01:00 PM OFFICE O/P EST MOD 30 MIN PRIMARY CARE/MEDICINE ICD-10-CM C64.9 Malignant neoplasm of unsp kidney, except renal pelvis DENYS CHESTER Rufino Encounter Template Text not used by [place] Assessments - Encounter Diagnoses This section includes the primary and secondary diagnoses documented for the Encounter. Date/Time Primary/Secondary Diagnosis Diagnosis Name Provider Source Nov 24, 2023 02:05 PM PRIMARY Malignant neoplasm of unsp kidney, except renal pelvis DENYS CHESTER Nov 24, 2023 02:05 PM SECONDARY Pure hypercholesterolemi a, unspecified DENYS CHESTER [place] Nov 24, 2023 02:05 PM SECONDARY Tobacco use DENYS CHESTER [place] Vital Signs: All taken on the encounter [...] and tobacco- related health factors from the [place] facility where the Encounter took place. Current Smoking Status This section includes the most current smoking, or tobacco-related health factor, from the [place] facility where the Encounter took place. Date/Time Current Smoking Status Comment Facil [place] Nov 24, 2023 01:00 PM VA-TOBACCO USER SOME DAYS [place] Tobacco Use History This section includes a history of the smoking, or tobacco-related health factors, that were collected on or before the date of the Encounter. The data comes from the [place] facility where the Encounter took place. 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 S/he is not interested in [...] this can be accurately recorded in their [place] medical record. Tdap Immunization: The patient may [...] full rights to use it throughout the [place] system. 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 Over [...] to other questions. 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 [place] has no concerns about toxic exposure(s) while [...] Not worried about housing near future [facility] [place] reports the following: Within the past 12 [...] caregiver's preferred language for healthcare? Preferred Language: Faroese PTSD Screening: PC-PTSD-5 A PTSD screening test [...] due to responses to other questions. 5. [place] numb or detached from people, activities, or your surroundings? Response not required due to responses to other questions. 6. [place] guilty or unable to stop blaming yourself [...] to protect and improve your health and [place] has the resources to support you. - [...] behavioral changes to help you quit. - [place] has a number of behavioral counseling options to help you with quitting, including: * Provide information about the facility smoking or tobacco use treatment options or clinics * [place]'s national quitline, 3-179-CORT-VET, with counseling available Wednesday-Wednesday The patient was [...] this [facility] (local) and dispensed from another [place] or DoD facility (remote) as well as [...] Heterosexual /howard/ DENYS CHESTER PA-C STAFF PHYSICIAN FARM OPERATOR Signed: 11/24/2023 14:05 11/24/2023 ADDENDUM STATUS: COMPLETED PE: stasis derm and 1+ oedema R lower leg site of previous dvt /howard/ DENYS CHESTER PA-C STAFF PHYSICIAN FARM OPERATOR Signed: 11/24/2023 16:36 DENYS CHESTER
--- OUTSIDE RECORDS SUMMARY | 2024-09-01 11:31 | XMS_ITS | Encounter Summary ---
Author Name [facility] [place] [facility] [place] Address [address] [place] [address] Support Name Relationship Address Phone MARLENE LAKSHMI Next of Kin [address] [place] [address] LAKSHMI ROSARIO Emergency Contact [address] [place], [place] [phone] Selected Encounter This section includes the information on record at [place] for the Encounter. Date/Time Encounter Type Encounter Description Reason Pro vider Source Sep 06, 2023 12:00 AM Outpatient Encounter EVENT (HISTORICAL) [place] Encounter Template Text not used by [place] Plan of Treatment: Future Appointments (+ 6 months) and Future Tests (+/- 45 days) The Plan of Treatment section includes future care activities for the patient from all [place] treatmentfacilities. This section includes future appointments and future orders which are active, pending or scheduled. Future Appointments This section includes appointments that were scheduled to occur 6 months from the date of the Encounter, up to a maximum of 20 appointments. The data comes from all [place] treatment facilities. Appointment Date/Time Appointment Type Appointme nt Facility Name Nov 24, 2023 01:00 PM AMBULATORY - MEDICINE [facility] Encounter [...] Filed: 12/02/2023 by: ROBERTO MARTINEZ [facility]
--- OUTSIDE RECORDS SUMMARY | 2024-09-01 11:31 | XMS_ITS ---
Author Name [facility] [place] Organization [facility] [place] [facility] [place] Address [address] [place] [address] Support Name Relationship Address Phone LAKSHMI ROSARIO Next of Kin [address] [place] [address] LAKSHMI ROSARIO Emergency Contact [address] [place] [address] Selected Encounter This section includes the information on record at [place] for the Encounter. Date/Time Encounter Type Encounter Description Reason Pro vider Source Sep 16, 2023 12:00 AM Outpatient Encounter EVENT (HISTORICAL) [place] Encounter Template Text not used by [place] Plan of Treatment: Future Appointments (+ 6 months) and Future Tests (+/- 45 days) The Plan of Treatment section includes future care activities for the patient from all [place] treatmentfacilities. This section includes future appointments and future orders which are active, pending or scheduled. Future Appointments This section includes appointments that were scheduled to occur 6 months from the date of the Encounter, up to a maximum of 20 appointments. The data comes from all [place] treatment facilities. Appointment Date/Time Appointment Type Appointme nt Facility Name Nov 24, 2023 01:00 PM AMBULATORY - MEDICINE [facility]
--- OUTSIDE RECORDS SUMMARY | 2024-09-01 11:32 | XMS_ITS | Encounter Summary ---
Author Name [facility] [place] Organization [facility] [place] [facility] [place] Address [address] [place] [address] Support Name Relationship Address Phone MARLENE LAKSHMI Next of Kin [address] [place] [address] LAKSHMI ROSARIO Emergency Contact [address] [place], [place] [phone] Selected Encounter This section includes the information on record at [place] for the Encounter. Date/Time Encounter Type Encounter Description Reason Pro vider Source Jun 06, 2024 02:28 PM Outpatient Encounter PRIMARY CARE/MEDICINE [place] Encounter Template Text not used by [place] Plan of Treatment: Future Appointments (+ 6 months) and Future Tests (+/- 45 days) The Plan of Treatment section includes future care activities for the patient from all [place] treatmentfacilities. This section includes future appointments and future orders which are active, pending or scheduled. Future Appointments This section includes appointments that were scheduled to occur 6 months from the date of the Encounter, up to a maximum of 20 appointments. The data comes from all [place] treatment facilities. Appointment Date/Time Appointment Type Appointme nt Facility Name Sep 14, 2024 08:30 AM AMBULATORY - MEDICINE [facility] Encounter Notes: All associated encounter notes This section contains the clinical notes associated to the Encounter. Date/Time Encounter Note(s) Provider Source Jun 06, 2024 02:29 PM ADMINISTRATIVE NOT E: LOCAL TITLE: ADMINISTRATIVE NOTE STANDARD TITLE: ADMINISTRATIVE NOTE DATE OF NOTE: JUN 06, 2024@14:29 ENTRY DATE: JUN 06, 2024@14:29:05 AUTHOR: RACHELLE POSADAS EXP COSIGNER: URGENCY: STATUS: COMPLETED Inclinometer Tester called to [ ] Schedule primary care [...] number [X} Mailed Letter /howard/ RACHELLE POSADAS [facility] Signed: 06/06/2024 14:29 RACHELLE POSADAS [place] Jun 06, 2024 02:28 PM LETTERS: LOCAL TITLE: PATIENT LETTER (B) STANDARD TITLE: LETTERS DATE OF NOTE: JUN 06, 2024@14:28 ENTRY DATE: JUN 06, 2024@14:28:09 AUTHOR: RACHELLE POSADAS EXP COSIGNER: URGENCY: STATUS: COMPLETED [facility] [address] [address] 3 [phone] * [phone] * ANA MARIA ROSARIO [address] [place], [place] [address] Date: JUN 06, 2024 Dear : Our goal at the [facility] is to provide you with quality medical care. We have been trying to reach you unsuccessfully to schedule a Primary care appt with you at the [facility], [address] [place] [address] Please call us at Wednesday through Wednesday, 8am-4pm to schedule this appointment. Sincerely, Office Staff for: Primary Care [facility] [address] [place] [address] T [phone] F [phone] RACHELLE POSADAS [place]
--- OUTSIDE RECORDS SUMMARY | 2024-09-01 11:32 | XMS_ITS ---
Author Name [facility] [place] Organization [facility] [place] Address [address] [place] [id number] Support Name Relationship Address Phone MARLENE LAKSHMI Next of Kin [address] [place] [address] LAKSHMI ROSARIO Emergency Contact [address] [place] [address] Selected Encounter This section includes the information on record at [place] for the Encounter. Date/Time Encounter Type Encounter Description Reason Pro vider Source Jun 08, 2024 10:58 AM Outpatient Encounter ADMIN PAT ACTIVTIES (MASNONCT) IHE Encounter Template Text not used by [place] Plan of Treatment: Future Appointments (+ 6 months) and Future Tests (+/- 45 days) The Plan of Treatment section includes future care activities for the patient from all [place] treatmentfacilities. This section includes future appointments and future orders which are active, pending or scheduled. Future Appointments This section includes appointments that were scheduled to occur 6 months from the date of the Encounter, up to a maximum of 20 appointments. The data comes from all [place] treatment facilities. Appointment Date/Time Appointment Type Appointme nt Facility Name Sep 14, 2024 08:30 AM AMBULATORY - MEDICINE [facility] Encounter Notes: All associated encounter notes [...] Name: ANA MARIA ROSARIO Patient Primary Phone: [phone] Patient Primary Address: Ramiro GARCIA [facility] [place] [address] Patient : 1960 Patient Age: 63 Caller/Recipient Relation to Patient: Self Administrative Administrative Note Comments: [place] rescheduled pact clinic cancellation. First available was week of Sep 11 so vet will need new lab orders entered. FYI. IMPORTANT: This note was created by [facility] Clinical Contact Center staff. Please do not alert the staff member by adding them as a signer for future communications. Alerts are not monitored by this user. /howard/ Glendy ROSEN [address] [facility] Signed: 06/08/2024 10:58 Receipt Acknowledged By: 06/09/2024 14:17 /howard/ SHILPA VILLAVICENCIO LPN LPN 06/12/2024 13:36 /howard/ NEW MALLOY RN REGISTERED NURSE 06/09/2024 ADDENDUM STATUS: COMPLETED Labs have been updated. /howard/ SHILPA VILLAVICENCIO LPN LPN Signed: 06/09/2024 14:17 GLENDY DE LEON [facility]TRL [facility]
== END 2024-09-01 11:30 | disposition home or self-care (01) ==
LOC: HO.HMGCX 11:29
PROVIDERS: PCP Family Medicine; Visit Provider Internal Medicine Nephrology
DX: R10.9 Unspecified abdominal pain (principal)
CPT/HCPCS: 76775

== ENCOUNTER 2025-01-04 11:24 | Outpatient (REF) | payer MEDICARE, OTHER, SELFPAY ==
[2025-01-04 15:00] LABS: Influenza A PCR NEGATIVE (Negative); Influenza B PCR NEGATIVE (Negative); Resp Syncy Virus RNA Qual PCR NEGATIVE (Negative); SARS COV2 PCR INHOUSE NEGATIVE (Negative)
--- OUTSIDE RECORDS SUMMARY | 2025-01-04 17:16 | XMS_ITS | Continuity of Care Document ---
Author Name [facility] Organization [facility] Care Team Providers Care Security Guards Dispatcher Name Role Phone [facility] Unavailable Unavailable Problems Combined list of problems from Department of Defense and Veterans Affairs facilities. It does not include entries that were removed or entered in error. Problem Status Onset Date Problem Type Date of Resolution Comments Source Benign prostatic hyperplasia Active Condition [place] Chronic osteoarthritis Active Condition Nov 24, 2023 Entered By: DENYS CHESTER Comment: OA, C-Spine w/o Spin Stenosis; Neck Pain Non-Radicular as of DEC 11 [place] H/O: thromboembolism Active Condition [place] Hypercholesterolemia Active Condition [place] Plantar fasciitis Active Condition Ma r 2023 Entered By: DENYS CHESTER Comment: Plantar Fasciitis, R Foot; Has Done [facility] Inj.'s via Podiatry [place] Primary erectile dysfunction Active Condition [place] Renal cell carcinoma Active Condition Nov 24, 2023 Entered By: DENYS CHESTER Comment: RCC, R Side: Dx'd 2015; Eight Yrs Out as of 2023;Nov 24, 2023 Entered By: DENYS CHESTER Comment: Still Sees ONCO at [facility] as of Nov Entered By: DENYS [...] DEC 11; Will Remain on DOAG Thereafter [place] Tobacco user Active Condition Nov 24, 2023 Entered By: DENYS CHESTER Comment: Used to Smoke Daily; Now Just Occasionally as of DEC 11 [place] Diagnosis: ICD-10-CM Z46.0 Encounter for fit/adjst of spectacles and contact lenses Active Diagnosis [facility] Diagnosis: ICD-10-CM H25.13 Age-related nuclear cataract, bilateral Active Diagnosis [facility] Diagnosis: ICD-10-CM Z86.718 Personal history of other venous thrombosis and embolism Active Diagnosis [place] Diagnosis: ICD-10-CM C64.9 Malignant neoplasm of unsp kidney, except renal pelvis Active Diagnosis [place] Medications Combined list of outpatient medications from Department of [facility] and [facility] facilities.Medications provided include 1) outpatient medications from [...] chemistry, hematology and other laboratory results from Department of [facility] and [facility], ranging from 15 months to all on record, depending upon the facility. Order Name Results Value Reference Range Date Interpretation Specimen Comments Source CBC AND DIFF (AUTO) LEUKOCYTES [#/VOLUME] IN BLOOD BY AUTOMATED COUNT 11.32 10*3/uL 4.50 - 11.00 09/14 H Specimen Type: BLOOD No comment entered. Ordering Provider: SARAH BUSCH Report Released Date/Time: Jun 09, 2024 02:03 PM Reporting Lab: [address] [address] Performing Lab: [address] [address] [facility] CBC AND DIFF (AUTO) ERYTHROCYT ES [#/VOLUME] IN BLOOD BY AUTOMATED COUNT 5.05 10*6/uL 4.23 - 5.66 09/14 Specimen Type: BLOOD No comment entered. Ordering Provider: SARAH BUSCH Report Released Date/Time: Jun 09, 2024 02:03 PM Reporting Lab: [facility] [address] [facility] [address] Performing Lab: [facility] [address] [address] [place] CBC AND DIFF (AUTO) HEMOGLOBIN [MASS/VOLU ME] IN BLOOD 14.7 g/dL 12.8 - 17 09/14 Specimen Type: BLOOD No comment entered. Ordering Provider: SARAH BUSCH Report Released Date/Time: Jun 09, 2024 02:03 PM Reporting Lab: [facility] [address] [address] Performing Lab: [facility] [address] [place] CBC AND DIFF (AUTO) HEMATOCRIT [VOLUME FRACTION] OF BLOOD BY AUTOMATED COUNT 44.2 39.2 - 50.4 09/14 Specimen Type: BLOOD No comment entered. Ordering Provider: SARAH BUSCH Report Released Date/Time: Jun 09, 2024 02:03 PM Reporting Lab: [facility] [address] [facility] [address] Performing Lab: [facility] [address] [address] [place] CBC AND DIFF (AUTO) MCV [ENTITIC VOLUME] BY AUTOMATED COUNT 87.5 fL 82 - 99 09/14 Specimen Type: BLOOD No comment entered. Ordering Provider: SARAH BUSCH Report Released Date/Time: Jun 09, 2024 02:03 PM Reporting Lab: [facility] [place] [facility] [address] [facility] [address] Performing Lab: [facility] [address] [address] [place] CBC AND DIFF (AUTO) MCHC [MASS/VOLU ME] BY AUTOMATED COUNT 33.3 g/dL 30.8 - 35.1 09/14 Specimen Type: BLOOD No comment entered. Ordering Provider: SARAH BUSCH Report Released Date/Time: Jun 09, 2024 02:03 PM Reporting Lab: [facility] [place] [facility] [address] [facility] [address] Performing Lab: [facility] [address] [address] [place] CBC AND DIFF (AUTO) PLATELETS [#/VOLUME] IN BLOOD BY AUTOMATED COUNT 451 10*3/uL 140 - 360 09/14 H Specimen Type: BLOOD No comment entered. Ordering Provider: SARAH BUSCH Report Released Date/Time: Jun 09, 2024 02:03 PM Reporting Lab: [facility] [address] [address] Performing Lab: [facility] [address] [address] [place] CBC AND DIFF (AUTO) ERYTHROCYT E DISTRIBUTI ON WIDTH [RATIO] BY AUTOMATED COUNT 13.8 12.0 - 16.0 09/14 Specimen Type: BLOOD No comment entered. Ordering Provider: SARAH BUSCH Report Released Date/Time: Jun 09, 2024 02:03 PM Reporting Lab: [facility] [address] [address] Performing Lab: [facility] [address] [address] [place] CBC AND DIFF (AUTO) MONOCYTES [#/VOLUME] IN BLOOD BY AUTOMATED COUNT 0.90 10*3/uL 0.30 - 1.10 09/14 Specimen Type: BLOOD No comment entered. Ordering Provider: SARAH BUSCH Report Released Date/Time: Jun 09, 2024 02:03 PM Reporting Lab: [facility] [address] [address] Performing Lab: [facility] [address] [address] [place] CBC AND DIFF (AUTO) MCH [ENTITIC MASS] BY AUTOMATED COUNT 29.1 pg 26.2 - 32.6 09/14 Specimen Type: BLOOD No comment entered. Ordering Provider: SARAH BUSCH Report Released Date/Time: Jun 09, 2024 02:03 PM Reporting Lab: [place] [address] [address] Performing Lab: [place] [facility] [place] [address] [address] [place] CBC AND DIFF (AUTO) NEUTROPHIL S/100 LEUKOCYTES IN BLOOD BY AUTOMATED COUNT 77.3 43.7 - 75.8 09/14 H Specimen Type: BLOOD No comment entered. Ordering Provider: SARAH BUSCH Report Released Date/Time: Jun 09, 2024 02:03 PM Reporting Lab: [place] [facility] [place] [address] [address] Performing Lab: [facility] [place] [address] [address] [place] CBC AND DIFF (AUTO) LYMPHOCYTE S/100 LEUKOCYTES IN BLOOD BY AUTOMATED COUNT 11.6 14.0 - 42.3 09/14 L Specimen Type: BLOOD No comment entered. Ordering Provider: SARAH BUSCH Report Released Date/Time: Jun 09, 2024 02:03 PM Reporting Lab: [facility] [place] [place] [address] [address] Performing Lab: [facility] [place] [place] [address] [address] [place] CBC AND DIFF (AUTO) MONOCYTES/ 100 LEUKOCYTES IN BLOOD BY AUTOMATED COUNT 8.0 5.1 - 13.7 09/14 Specimen Type: BLOOD No comment entered. Ordering Provider: SARAH BUSCH Report Released Date/Time: Jun 09, 2024 02:03 PM Reporting Lab: [facility] [place] [place] [address] [address] Performing Lab: [facility] [place] [address] [address] [place] CBC AND DIFF (AUTO) EOSINOPHIL S/100 LEUKOCYTES IN BLOOD BY AUTOMATED COUNT 0.7 0.4 - 6.8 09/14 Specimen Type: BLOOD No comment entered. Ordering Provider: SARAH BUSCH Report Released Date/Time: Jun 09, 2024 02:03 PM Reporting Lab: [facility] [address] [address] Performing Lab: [facility] [address] [place] CBC AND DIFF (AUTO) BASOPHILS/ 100 LEUKOCYTES IN BLOOD BY AUTOMATED COUNT 0.5 0.1 - 2.0 09/14 Specimen Type: BLOOD No comment entered. Ordering Provider: SARAH BUSCH Report Released Date/Time: Jun 09, 2024 02:03 PM Reporting Lab: [facility] [address] [address] Performing Lab: [facility] [address] [address] [place] CBC AND DIFF (AUTO) NEUTROPHIL S [#/VOLUME] IN BLOOD BY AUTOMATED COUNT 8.75 10*3/uL 2.20 - 7.60 09/14 H Specimen Type: BLOOD No comment entered. Ordering Provider: SARAH BUSCH Report Released Date/Time: Jun 09, 2024 02:03 PM Reporting Lab: [facility] [address] [address] Performing Lab: [facility] [address] [address] [place] CBC AND DIFF (AUTO) LYMPHOCYTE S [#/VOLUME] IN BLOOD BY AUTOMATED COUNT 1.31 10*3/uL 1.00 - 3.20 09/14 Specimen Type: BLOOD No comment entered. Ordering Provider: SARAH BUSCH Report Released Date/Time: Jun 09, 2024 02:03 PM Reporting Lab: [facility] [address] [facility] [address] Performing Lab: [facility] [address] [address] [place] CBC AND DIFF (AUTO) EOSINOPHIL S [#/VOLUME] IN BLOOD BY AUTOMATED COUNT 0.08 10*3/uL 0.03 - 0.44 09/14 Specimen Type: BLOOD No comment entered. Ordering Provider: SARAH BUSCH Report Released Date/Time: Jun 09, 2024 02:03 PM Reporting Lab: [facility] [address] Performing Lab: [facility] [address] [place] CBC AND DIFF (AUTO) BASOPHILS [#/VOLUME] IN BLOOD BY AUTOMATED COUNT 0.06 10*3/uL 0.01 - 0.13 09/14 Specimen Type: BLOOD No comment entered. Ordering Provider: SARAH BUSCH Report Released Date/Time: Jun 09, 2024 02:03 PM Reporting Lab: [facility] [address] [address] Performing Lab: [facility] [address] [address] [place] CBC AND DIFF (AUTO) IMMATURE GRANULOCYT ES/100 LEUKOCYTES IN BLOOD BY AUTOMATED COUNT 1.9 0.0 - 0.7 09/14 H Specimen Type: BLOOD No comment entered. Ordering Provider: SARAH BUSCH Report Released Date/Time: Jun 09, 2024 02:03 PM Reporting Lab: [facility] [address] [address] Performing Lab: [facility] [address] [address] [place] CBC AND DIFF (AUTO) IMMATURE GRANULOCYT ES [#/VOLUME] IN BLOOD 0.22 10*3/uL 0.00 - 0.06 09/14 H Specimen Type: BLOOD No comment entered. Ordering Provider: SARAH BUSCH Report Released Date/Time: Jun 09, 2024 02:03 PM Reporting Lab: [address] [address] Performing Lab: [address] [address] [place] CBC AND DIFF (AUTO) NRBC % 0.0 0.0 - 0.0 09/14 Specimen Type: BLOOD No comment entered. Ordering Provider: SARAH BUSCH Report Released Date/Time: Jun 09, 2024 02:03 PM Reporting Lab: [address] [address] Performing Lab: [address] [address] [place] CBC AND DIFF (AUTO) NRBC, ABS 0.00 10*3/uL 0.00 - 0.00 09/14 Specimen Type: BLOOD No comment entered. Ordering Provider: SARAH BUSCH Report Released Date/Time: Jun 09, 2024 02:03 PM Reporting Lab: [address] [address] Performing Lab: [address] [address] [place] FERRITIN FERRITIN [MASS/VOLU ME] IN SERUM OR PLASMA 240 ng/mL 20 - 300 09/14 Specimen Type: SERUM No comment entered. Ordering Provider: SARAH BUSCH Report Released Date/Time: Jun 09, 2024 02:03 PM Reporting Lab: [address] [address] Performing Lab: [address] [address] [place] HEMOGLOB IN A1C PANEL HEMOGLOBIN [...] Jun 09, 2024 02:03 PM Reporting Lab: [address] [address] Performing Lab: [address] [address] [place] HEPATITI S C ANTIBODY (HCV)-AR C HEPATITIS C VIRUS AB [PRESENCE] IN SERUM NON-REAC TIVE 09/14 Specimen Type: SERUM Comment: Hep C Ab: No HCV antibody detected. If recent infection is suspected or other evidence suggests HCV infection, consider HCV nucleic acid testing Ordering Provider: SARAH BUSCH Report Released Date/Time: Jun 09, 2024 02:03 PM Reporting Lab: [address] [address] Performing Lab: [address] [address] [place] HIV 1&2 Ag/Ab SCREEN HIV 1+2 AB+HIV1 P24 AG [PRESENCE] IN SERUM OR PLASMA BY IMMUNOASSA Y NON-REAC TIVE 09/14 Specimen Type: SERUM No comment entered. Ordering Provider: SARAH BUSCH Report Released Date/Time: Jun 09, 2024 02:03 PM Reporting Lab: [address] [address] Performing Lab: [address] [address] [place] MICROALB UMIN CREATINI NE RATIO PANEL MICROALBUM IN/CREATIN INE [MASS RATIO] IN URINE 4.9 mg/g 0 - 29.9 09/14 Specimen Type: URINE No comment entered. Ordering Provider: SARAH BUSCH Report Released Date/Time: Jun 09, 2024 02:03 PM Reporting Lab: [facility] [place] [facility] [address] [facility] [address] Performing Lab: [facility] [address] [facility] [address] [place] MICROALB UMIN CREATINI NE RATIO PANEL MICROALBUM IN [MASS/VOLU ME] IN URINE 0.7 mg/dL 09/14 Specimen Type: URINE No comment entered. Ordering Provider: SARAH BUSCH Report Released Date/Time: Jun 09, 2024 02:03 PM Reporting Lab: [facility] [address] [address] Performing Lab: [facility] [address] [address] [place] MICROALB UMIN CREATINI NE RATIO PANEL CREATININE [MASS/VOLU ME] IN URINE 142.28 mg/dL 09/14 Specimen Type: URINE No comment entered. Ordering Provider: SARAH BUSCH Report Released Date/Time: Jun 09, 2024 02:03 PM Reporting Lab: [facility] [address] [address] Performing Lab: [place] [place] [address] [address] [place] RETICULO CYTES RETICULOCY ALIX [#/VOLUME] IN BLOOD 1.5 0.6 - 2.0 09/14 Specimen Type: BLOOD No comment entered. Ordering Provider: SARAH BUSCH Report Released Date/Time: Jun 09, 2024 02:03 PM Reporting Lab: [facility] [place] [address] [address] Performing Lab: [place] [facility] [place] [address] [address] [place] RETICULO CYTES RETICULOCY ALIX/100 ERYTHROCYT ES IN BLOOD BY AUTOMATED COUNT 76.3 10*3/uL 30.0 - 90.0 09/14 Specimen Type: BLOOD No comment entered. Ordering Provider: SARAH BUSCH Report Released Date/Time: Jun 09, 2024 02:03 PM Reporting Lab: [address] [address] Performing Lab: [facility] [address] [place] RETICULO CYTES HEMOGLOBIN [ENTITIC MASS] IN RETICULOCY ALIX BY AUTOMATED COUNT 32.5 pg 27.9 - 42.0 09/14 Specimen Type: BLOOD No comment entered. Ordering Provider: SARAH BUSCH Report Released Date/Time: Jun 09, 2024 02:03 PM Reporting Lab: [address] [address] Performing Lab: [facility] [address] [place] URIC ACID URATE [MASS/VOLU ME] IN SERUM OR PLASMA 7.0 mg/dL 3.5 - 7.2 09/14 Specimen Type: SERUM No comment entered. Ordering Provider: SARAH BUSCH Report Released Date/Time: Jun 09, 2024 02:03 PM Reporting Lab: [address] [address] Performing Lab: [facility] [address] [place] URINALYS IS COLOR OF URINE Yellow 09/14 Specimen Type: URINE Comment: If Glucose = >500 and Ketones are positive, please alert the Physician. Ordering Provider: SARAH BUSCH Report Released Date/Time: Jun 09, 2024 02:03 PM Reporting Lab: [address] [address] Performing Lab: [address] [address] [place] URINALYS IS APPEARANCE OF URINE Clear 09/14 Specimen Type: URINE Comment: If Glucose = >500 and Ketones are positive, please alert the Physician. Ordering Provider: SARAH BUSCH Report Released Date/Time: Jun 09, 2024 02:03 PM Reporting Lab: [address] [address] Performing Lab: [address] [address] [place] URINALYS IS GLUCOSE [MASS/VOLU ME] IN URINE Normalmg /dL 09/14 Specimen Type: URINE Comment: If Glucose = >500 and Ketones are positive, please alert the Physician. Ordering Provider: SARAH BUSCH Report Released Date/Time: Jun 09, 2024 02:03 PM Reporting Lab: [address] [address] Performing Lab: [address] [address] [place] URINALYS IS KETONES [MASS/VOLU ME] IN URINE BY TEST STRIP NEGATIVE mg/dL 09/14 Specimen Type: URINE Comment: If Glucose = >500 and Ketones are positive, please alert the Physician. Ordering Provider: SARAH BUSCH Report Released Date/Time: Jun 09, 2024 02:03 PM Reporting Lab: [address] [address] Performing Lab: [address] [address] [place] URINALYS IS ERYTHROCYT ES [PRESENCE] IN URINE SEDIMENT BY LIGHT MICROSCOPY NEGATIVE mg/dL 09/14 Specimen Type: URINE Comment: If Glucose = >500 and Ketones are positive, please alert the Physician. Ordering Provider: SARAH BUSCH Report Released Date/Time: Jun 09, 2024 02:03 PM Reporting Lab: [address] [address] Performing Lab: [address] [address] [place] URINALYS IS PROTEIN [MASS/VOLU ME] IN URINE BY TEST STRIP NEGATIVE mg/dL 09/14 Specimen Type: URINE Comment: If Glucose = >500 and Ketones are positive, please alert the Physician. Ordering Provider: SARAH BUSCH Report Released Date/Time: Jun 09, 2024 02:03 PM Reporting Lab: [address] [address] Performing Lab: [address] [address] [place] URINALYS IS NITRITE [PRESENCE] IN URINE NEGATIVE mg/dL 09/14 Specimen Type: URINE Comment: If Glucose = >500 and Ketones are positive, please alert the Physician. Ordering Provider: SARAH BUSCH Report Released Date/Time: Jun 09, 2024 02:03 PM Reporting Lab: [facility] [address] [address] Performing Lab: [address] [address] [place] URINALYS IS BILIRUBIN. TOTAL [PRESENCE] IN URINE NEGATIVE mg/dL 09/14 Specimen Type: URINE Comment: If Glucose = >500 and Ketones are positive, please alert the Physician. Ordering Provider: SARAH BUSCH Report Released Date/Time: Jun 09, 2024 02:03 PM Reporting Lab: [facility] [address] [address] Performing Lab: [facility] [address] [address] [place] URINALYS IS SPECIFIC GRAVITY OF URINE BY REFRACTOME TRY 1.022 1.016 - 1.022 09/14 Specimen Type: URINE Comment: If Glucose = >500 and Ketones are positive, please alert the Physician. Ordering Provider: SARAH BUSCH Report Released Date/Time: Jun 09, 2024 02:03 PM Reporting Lab: [address] [address] Performing Lab: [address] [address] [place] URINALYS IS PH OF URINE BY TEST STRIP 6.5 5.0 - 9.0 09/14 Specimen Type: URINE Comment: If Glucose = >500 and Ketones are positive, please alert the Physician. Ordering Provider: SARAH BUSCH Report Released Date/Time: Jun 09, 2024 02:03 PM Reporting Lab: [address] [address] Performing Lab: [address] [address] [place] URINALYS IS UROBILINOG EN [MASS/VOLU ME] IN URINE BY TEST STRIP Normalmg /dL <2.0 - 2.0 09/14 Specimen Type: URINE Comment: If Glucose = >500 and Ketones are positive, please alert the Physician. Ordering Provider: SARAH BUSCH Report Released Date/Time: Jun 09, 2024 02:03 PM Reporting Lab: [address] [address] Performing Lab: [address] [address] [place] URINALYS IS LEUKOCYTE ESTERASE [PRESENCE] IN URINE BY TEST STRIP NEGATIVE 09/14 Specimen Type: URINE Comment: If Glucose = >500 and Ketones are positive, please alert the Physician. Ordering Provider: SARAH BUSCH Report Released Date/Time: Jun 09, 2024 02:03 PM Reporting Lab: [address] [address] Performing Lab: [place] [facility] [address] [facility] [address] [place]es[place]uf[facility] ROD VITAMIN D (25-OH) 25-HYDROXY VITAMIN D3 [MASS/VOLU ME] IN SERUM OR PLASMA 42 ng/mL 20 - 50 09/14 Specimen Type: SERUM No comment entered. Ordering Provider: SARAH BUSCH Report Released Date/Time: Jun 09, 2024 02:03 PM Reporting Lab: [facility] [place] [facility] [address] [facility] [address] Performing Lab: [facility] [place] [facility] [address] [facility] [address] [facility] Vital Signs Combined list of inpatient and outpatient Vital Signs from Department of Defense and Veterans Affairs, ranging from 12 months to all on record, depending upon the facility. Vital Sign Value Date Comments Source SYSTOLIC BLOOD PRESSURE 130 09/14/2024 08:33:01 [place] DIASTOLIC BLOOD PRESSURE 86 09/14/2024 08:33:01 [place] PULSE OXIMETRY 96 09/14/2024 08:33:01 S JOHNATHAN WEIGHT 187 09/14/2024 08:33:01 [place] WH[place] BMI 27 kg/m2 09/14/2024 08:33:01 [place] PULSE 80 09/14/2024 08:33:01 MIKA[place] WHITE Encounters Combined list of: 1) Encounters from Department of Veterans Affairs facilities going backup to the last 18 months, not all [place] inpatient encounters are included; 2) Encounters from the Department of Defense facilities going backup to 280 months. Location Location Details Encounter Type Encounter Number Reason For Visit Attending Provider ADM Date DC Date Status Disposition Source [facility] [id number] 08[facility] [id number] 09/06 [facility] [id number] 09/16 [facility] Outpatient Encounter [id number] 10/29 [facility] Outpatient Encounter [id number] 11/23 [facility] [place] O/P EST MOD 30 MIN [id number] Diagnos is: ICD-10- CM C64.9 Maligna nt neoplas m of unsp kidney, except renal pelvis ELIECER CHESTER 11/23 [place] [facility] Outpatient Encounter [id number] 06/06 [facility] Outpatient Encounter [id number] 06/08 [facility] [place] O/P EST MOD 30 MIN [id number] Diagnos is: ICD-10- CM Z86.718 Persona l history of other venous thrombo sis and embolis cher MENDENHALL,OG HUMBERTO M 09/14 [place] [facility] COMPRE OPH EXAM NEW PT 1/> [id number] Diagnos is: ICD-10- CM H25.13 Age-rel ated nuclear catarac t, bilater al MERJR,TANI H B 09/14 [facility] FIT SPECTACLES MONOFOCAL [id number] Diagnos is: ICD-10- CM Z46.0 Encount er for fit/adj st of spectac les and contact lenses GAYLE,TANI H B 09/14 [facility] En[facility] [id number] 10/03 [facility] [id number] 10/11 [facility] [id number] 10/26 [facility] [id number] 12/06 [facility] [id number] 12/07 [facility] Social History Combined list of available smoking, tobacco, and other social history from [facility]. Social History Type Response Date Comment Sourc e Tobacco smoking status NHIS VA-TOBACCO USER SOME DAYS /02/2024 [place] History of tobacco use VA-TOBACCO USE [place] 30 MIN OF WAKEUP 11/24/2023 [place] Plan of Care List of future care activities from [facility] facilities. Additional future care activities may be listed in the Assessment and Plan section. Date/Time Care Activity Care Activity Detail Facili ty 11/27/2024 Laboratory - Chemistry Order OCC ULT BLOOD FIT X1 SCREEN ([facility] ONLY) STOOL FECES SP [place]
== END 2025-01-04 11:25 | disposition home or self-care (01) ==
LOC: HO.LNP 11:24
PROVIDERS: PCP Family Medicine; Visit Provider Physician Assistant Medical
DX: R09.89 Other specified symptoms and signs involving the circulatory and respiratory systems (principal); R06.2 Wheezing; F32.A Depression, unspecified; F41.9 Anxiety disorder, unspecified
CPT/HCPCS: 0241U; 96127; 99212

== ENCOUNTER 2025-01-04 11:24 | Outpatient (AMB) | payer MEDICARE, OTHER, SELFPAY ==
--- NOTE | 2025-01-04 11:30 | MHC.PC.OV ---
Vital Signs 01/04/25 11:39 Height 5 ft 10 in Weight 190 lb 2 oz BMI 27.3 BP 118/76 Blood Pressure Location Lt brachial Position Sitting Respiration 16 Pulse 84 Pulse Source Pulse Oximeter Temp 98.2 F Temp Source Temporal Artery Scan Pulse Oximetry (%) 96 Oxygen Delivery Method Room Air Intake Visit Reasons: Bad cold, possible bronchitis Intake Note: Gigi presents in the office for a cold. Patient has a history of bronchitis and is immuno-compromised. When he wakes in the morning he is all congested without a voice. He can be heard wheezing. 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 Patient endorses symptoms that he thinks may be due to bronchitis for the past 6 days. He has a cough that produces yellowish sputum. It is more productive in the morning. He coughs frequently. It occasionally wakes him at night. He also endorses wheezing with the cough. He endorses mild fatigue but no fevers, chills or night sweats. Denies chest pain or shortness of breath. He has a history of tobacco use. Patient is not diagnosed with chronic respiratory disease. Reports he has had bronchitis a few times. He has not been around any known sick contacts, but he did go to a sports event the day his symptoms began. He did not receive the flu shot, but he says he is up-to-date with COVID-19 and pneumonia vaccine. He took Robitussin at home which helped. Patient had neurosurgery in October to resect a right occipital metastatic lesion. He also had radiation. He is not on immunosuppressive medication. ROS: Constitutional: No fevers, chills or night sweats. Eyes: No acute vision change, eye redness or eye discharge ENT: +postnasal drip and denies sore throat, ear pain, sinus pain Respiratory: No hemoptysis. See HPI Cardiovascular: No chest pain or pedal edema Gastrointestinal: No anorexia, nausea, vomiting or diarrhea. No abdominal pain Neurologic: No seizure, syncope, dizziness Skin: No rash Physical exam: Constitutional: Alert, in no distress. Eyes: Pupils are equal, round and reactive to light. Extraocular muscles intact. No discharge or erythema. Ear, Nose and Throat: Canals clear. TMs normal. Normal nasal mucosa. No nasal discharge. No oral lesions. Neck: Supple, Full range of motion. No lymphadenopathy. Respiratory: Wheezing in the bilateral posterior lung leon. No rales or crackles. Normal respiratory effort. Bronchial cough. Cardiovascular: S1 S2 regular. No murmurs. Neurologic: No focal neurological deficits. Extremities: Warm and well perfused. No clubbing, cyanosis or edema. Psychiatric: Normal mood and affect [facility] Medical History Acute deep vein thrombosis (DVT) Metastatic renal cell carcinoma Surgical History History of lung surgery History of nephrectomy, right S/P craniotomy Family History (Updated 01/04/25 @ 11:38 by Yamel Lu MA) Father No problems noted. Mother Osteoarthritis Brother Substance abuse Brother No problems noted. Son No problems noted. Daughter No problems noted. Other FHx: mental illness Social History Housing: House Alcohol intake: never Patient Tobacco Use Status: Current someday Tobacco user Cigarettes Per Day: 2 e-Cigarette/Vaping Use: Never Used Second Hand Smoke Exposure: No service: Yes Current occupational status: employed Current occupational exposures/hazards: No Cognitive needs: No Hearing needs: No Vision needs: No Questionnaire PHQ-9 Over the last 2 weeks, how often have you been bothered by any of the following problems? 1. Little interest or pleasure in doing things: not at all 2. Feeling down, depressed, or hopeless: not at all 3. Trouble falling or staying asleep, or sleeping too much: not at all 4. Feeling tired or having little energy: several days 5. Poor appetite or overeating: not at all 6. Feeling bad about yourself - or that you are a failure or have let yourself or your family down: not at all 7. Trouble concentrating on things, such as reading the newspaper or watching television: not at all 8. Moving or speaking so slowly that other people could have noticed. Or the opposite - being so fidgety or restless that you have been moving around a lot more than usual: not at all 9. Thoughts that you would be better off or of hurting yourself in some way: not at all Total score: 1 Depression Screening Interpretation: Negative Depression Screening Done: Yes 80656 - PHQ-9 Billing: Patient declined-do not bill Source: Developed by Drs. Vijay Mac, Tana Matthew, Mono Doherty and colleagues, with an educational otto from [employer]. Thrive Questionnaire Date Thrive assessed: 01/04/25 I am a: Patient What is your living situation today?: I have a steady place to live Within the past 12 months, did the food you bought not last and you didn't have the money to get more?: Never true Within the past 12 months, did you worry whether your food would run out before you got money to buy more?: Never true Do you have trouble paying for medicines?: Yes Do you have trouble getting transportation to medical appointments?: No Do you have trouble paying your heating and electricity bill?: No Do you have trouble taking care of your child, family member or friend?: No Do you have trouble with day-to-day activities such as bathing, preparing meals, shopping, managing finances, etc.?: No Are you currently unemployed and looking for a job?: Yes Are you interested in more education?: No Please select the resources that you would like help with: Food and Paying for medicine Currently or been in a relationship where the following occur: I choose not to answer THRIVE Score: 0 AUDIT C Alcohol Use Questionnaire (AUDIT-C) 1. How often do you have a drink containing alcohol?: Never Total Score: 0 Score Reviewed/Action Taken: No XAVIER-7 AMB Questionnaire XAVIER-7 Date XAVIER - 7 assessed: 01/04/25 Feeling nervous, anxious, or on edge: 1 = Several days Not being able to stop or control worryin = Several days Worrying too much about different things: 1 = Several days Trouble relaxin = Not at all Being so restless that it is hard to sit still: 0 = Not at all Becoming easily annoyed or irritable: 1 = Several days Feeling afraid as if something awful might happen: 0 = Not at all Total XAVIER-7 score (0-4 normal; 5-9 mild; 10-14 moderate; 15-21 severe): 4 Source: Developed by Drs. Vijay Mac, Tana Matthew, Mono Doherty and colleagues, with an educational otto from [employer]. XAVIER-7 Assessment Billing XAVIER-7 Assessment Tool: XAVIER-7 Assessment 63505 ACT Questionnaire In the past 4 weeks, how much of the time did your asthma keep you from getting as much done at work, school or at home?: None of the time Score: 5 Physical exam (Primary Care) Vital Signs: Last Vital Signs Temp 98.2 F 01/04/25 11:39 Pulse 84 01/04/25 11:39 Resp 16 01/04/25 11:39 BP 118/76 01/04/25 11:39 Pulse Ox 96 01/04/25 11:39 Oxygen Delivery Method Room Air 01/04/25 11:39 BMI result Body Mass Index 27.3 Tobacco/Smoking Status: Tobacco use Status Tobacco use date assessed 01/04/25 01/04/25 11:41 Patient Tobacco Use Status Current someday Tobacco 01/04/25 11:31 e-Cigarette/Vaping Use Never Used 01/04/25 11:31 PHQ-9: PHQ-9 Score PHQ-9: Total score 1 01/04/25 11:41 Depression Screening Interpretation: Negative Thrive Assessment: Date of Thrive Assessment Date Thrive assessed 01/04/25 01/04/25 11:45 Currently or been in a relationship where the following occur: I choose not to answer Coding Level of Care Code Est Pt Level 4 (30263) Diagnoses Cough R05 Additional Codes XAVIER-7 Assessment Billing - XAVIER-7 Assessment Tool: XAVIER-7 Assessment 24007 ([id number]) Assessment & Plan Assessment & Plan (1) Cough: Code(s): R05 - Cough Category: Medical Plan: Vitals normal and patient afebrile. Do not suspect pneumonia at this time. No signs of fluid overload on exam either. Appears well. Ordered swab for COVID, RSV and influenza. Take Mucinex as needed. Supportive care reviewed. Prescribed azithromycin, prednisone and albuterol. Side effects and administration reviewed. Recommended yogurt and probiotics and taking medications with food. Advised patient to call if symptoms are not improving over the next 48 hours for chest x-ray. Warning signs warranting ER evaluation reviewed. Patient verbalizes understanding and agreed to plan. Orders: Orders SARS-CoV2/FLU/RSV Today R09.89 - Other specified symptoms and signs involving the circulatory and respiratory systems Medications: New azithromycin For 250 mg dose pack: take 500 mg today (day 1), then 250 mg for 4 days (days 2-5) PO 6 tabs 0RF albuterol sulfate 90 mcg/actuation 2 inhalations inhalation .every 4 hours 30 days PRN 8.5 grams 0RF shortness of breath or wheezing prednisone 40 mg (2 x 20 mg) PO DAILY 5 days 10 tabs 0RF
[2025-01-04 11:39] VITALS: BP 118/76; PULSE 84; RESP 16; TEMP 36.8; O2SAT 96; BMI 27.3
--- OUTSIDE RECORDS SUMMARY | 2025-01-04 14:14 | XMS_ITS | Continuity of Care Document ---
Author Name [facility] Organization [facility] Care Team Providers Care [facility] Administrative Assistant Name Role Phone [facility] Unavailable Unavailable Problems Combined list of problems from Department of Defense and Veterans Affairs facilities. It does not include entries that were removed or entered in error. Problem Status Onset Date Problem Type Date of Resolution Comments Source Benign prostatic hyperplasia Active Condition [place] Chronic osteoarthritis Active Condition Nov 24, 2023 Entered By: DENYS CHESTER Comment: OA, C-Spine w/o Spin Stenosis; Neck Pain Non-Radicular as of DEC 11 [place] H/O: thromboembolism Active Condition [facility] [place] Hypercholesterolemia Active Condition [place] Plantar fasciitis Active Condition Ma r 2023 Entered By: DENYS CHESTER Comment: Plantar Fasciitis, R Foot; Has Done [facility]CS Inj.'s via Podiatry [place] Primary erectile dysfunction Active Condition [place] Renal cell carcinoma Active Condition Nov 24, 2023 Entered By: DENYS CHESTER Comment: RCC, R Side: Dx'd 2015; Eight Yrs Out as of 2023;Nov 24, 2023 Entered By: DENYS CHESTER Comment: Still Sees [facility] at [facility] as of Nov Entered By: DENYS [...] DEC 11; Will Remain on DOAG Thereafter [place] Tobacco user Active Condition Nov 24, 2023 Entered By: DENYS CHESTER Comment: Used to Smoke Daily; Now Just Occasionally as of DEC 11 [place] Diagnosis: ICD-10-CM Z46.0 Encounter for fit/adjst of spectacles and contact lenses Active Diagnosis [facility] Diagnosis: ICD-10-CM H25.13 Age-related nuclear cataract, bilateral Active Diagnosis [facility] Diagnosis: ICD-10-CM Z86.718 Personal history of other venous thrombosis and embolism Active Diagnosis [place] Diagnosis: ICD-10-CM C64.9 Malignant neoplasm of unsp kidney, except renal pelvis Active Diagnosis [place] Medications Combined list of outpatient medications from [facility] and [facility] facilities.Medications provided include 1) outpatient medications from the last 15 months, and 2) patient-reported medications. Medication Details Route Status Patient Instructions Prescription Expires Prescription Number Last Dispense Date Ordering Provider Order Date Order Qty Source APIXABAN 5MG TAB TAKE ONE TABLET BY MOUTH EVERY 12 HOURS ORAL ACTIVE ANGY CHESTER 2023 [facility] IELD EZETIMIBE 10MG TAB TAKE ONE TABLET BY MOUTH ONCE DAILY ORAL ACTIVE ANGY CHESTER 2023 [facility] IELD SILDENAFIL CITRATE 100MG TAB TAKE ONE TABLET BY MOUTH DIRECTED ORAL ANGY DAVIS 2023 [facility] IELD Results Combined list of recent chemistry, hematology and other laboratory results from [facility] and [facility], ranging from 15 months to all on record, depending upon the facility. Order Name Results Value Reference Range Date Interpretation Specimen Comments Source URIC ACID URATE [MASS/VOLU ME] IN SERUM OR PLASMA 7.0 mg/dL 3.5 - 7.2 09/14 Specimen Type: SERUM No comment entered. Ordering Provider: SARAH BUSCH Report Released Date/Time: Jun 09, 2024 02:03 PM Reporting Lab: [facility] [address] [address] Performing Lab: [facility] [address] [address] [facility] CBC AND DIFF (AUTO) LEUKOCYTES [#/VOLUME] IN BLOOD BY AUTOMATED COUNT 11.32 10*3/uL 4.50 - 11.00 09/14 H Specimen Type: BLOOD No comment entered. Ordering Provider: SARAH BUSCH Report Released Date/Time: Jun 09, 2024 02:03 PM Reporting Lab: [facility] [address] [address] Performing Lab: [facility] [address] [address] [place] CBC AND DIFF (AUTO) ERYTHROCYT ES [#/VOLUME] IN BLOOD BY AUTOMATED COUNT 5.05 10*6/uL 4.23 - 5.66 09/14 Specimen Type: BLOOD No comment entered. Ordering Provider: SARAH BUSCH Report Released Date/Time: Jun 09, 2024 02:03 PM Reporting Lab: [facility] [address] [address] Performing Lab: [facility] [address] [address] [place] CBC AND DIFF (AUTO) HEMOGLOBIN [MASS/VOLU ME] IN BLOOD 14.7 g/dL 12.8 - 17 09/14 Specimen Type: BLOOD No comment entered. Ordering Provider: SARAH BUSCH Report Released Date/Time: Jun 09, 2024 02:03 PM Reporting Lab: [facility] [address] [address] Performing Lab: [facility] [address] [address] [place] CBC AND DIFF (AUTO) HEMATOCRIT [VOLUME FRACTION] OF BLOOD BY AUTOMATED COUNT 44.2 39.2 - 50.4 09/14 Specimen Type: BLOOD No comment entered. Ordering Provider: SARAH BUSCH Report Released Date/Time: Jun 09, 2024 02:03 PM Reporting Lab: [facility] [place] [address] [address] Performing Lab: [facility] [address] [address] [place] CBC AND DIFF (AUTO) MCV [ENTITIC VOLUME] BY AUTOMATED COUNT 87.5 fL 82 - 99 09/14 Specimen Type: BLOOD No comment entered. Ordering Provider: SARAH BUSCH Report Released Date/Time: Jun 09, 2024 02:03 PM Reporting Lab: [facility] [address] Performing Lab: [facility] [address] [address] [place] CBC AND DIFF (AUTO) MCHC [MASS/VOLU ME] BY AUTOMATED COUNT 33.3 g/dL 30.8 - 35.1 09/14 Specimen Type: BLOOD No comment entered. Ordering Provider: SARAH BUSCH Report Released Date/Time: Jun 09, 2024 02:03 PM Reporting Lab: [facility] [address] [address] Performing Lab: [facility] [address] [address] [place] CBC AND DIFF (AUTO) PLATELETS [#/VOLUME] IN BLOOD BY AUTOMATED COUNT 451 10*3/uL 140 - 360 09/14 H Specimen Type: BLOOD No comment entered. Ordering Provider: SARAH BUSCH Report Released Date/Time: Jun 09, 2024 02:03 PM Reporting Lab: [facility] [address] [address] Performing Lab: [facility] [address] [address] [place] CBC AND DIFF (AUTO) ERYTHROCYT E DISTRIBUTI ON WIDTH [RATIO] BY AUTOMATED COUNT 13.8 12.0 - 16.0 09/14 Specimen Type: BLOOD No comment entered. Ordering Provider: SARAH BUSCH Report Released Date/Time: Jun 09, 2024 02:03 PM Reporting Lab: [facility] [address] Performing Lab: [facility] [address] [place] CBC AND DIFF (AUTO) MONOCYTES [#/VOLUME] IN BLOOD BY AUTOMATED COUNT 0.90 10*3/uL 0.30 - 1.10 09/14 Specimen Type: BLOOD No comment entered. Ordering Provider: SARAH BUSCH Report Released Date/Time: Jun 09, 2024 02:03 PM Reporting Lab: [place] [facility] [place] [address] [address] Performing Lab: [facility] [place] [address] [address] [place] CBC AND DIFF (AUTO) MCH [ENTITIC MASS] BY AUTOMATED COUNT 29.1 pg 26.2 - 32.6 09/14 Specimen Type: BLOOD No comment entered. Ordering Provider: SARAH BUSCH Report Released Date/Time: Jun 09, 2024 02:03 PM Reporting Lab: [place] [facility] [place] [address] [address] Performing Lab: [place] [facility] [place] [address] [address] [place] CBC AND DIFF (AUTO) NEUTROPHIL S/100 LEUKOCYTES IN BLOOD BY AUTOMATED COUNT 77.3 43.7 - 75.8 09/14 H Specimen Type: BLOOD No comment entered. Ordering Provider: SARAH BUSCH Report Released Date/Time: Jun 09, 2024 02:03 PM Reporting Lab: [place] [facility] [place] [address] [address] Performing Lab: [facility] [place] [address] [address] [place] CBC AND DIFF (AUTO) LYMPHOCYTE S/100 LEUKOCYTES IN BLOOD BY AUTOMATED COUNT 11.6 14.0 - 42.3 09/14 L Specimen Type: BLOOD No comment entered. Ordering Provider: SARAH BUSCH Report Released Date/Time: Jun 09, 2024 02:03 PM Reporting Lab: [place] [facility] [place] [address] [address] Performing Lab: [facility] [place] [address] [address] [place] CBC AND DIFF (AUTO) MONOCYTES/ 100 LEUKOCYTES IN BLOOD BY AUTOMATED COUNT 8.0 5.1 - 13.7 09/14 Specimen Type: BLOOD No comment entered. Ordering Provider: SARAH BUSCH Report Released Date/Time: Jun 09, 2024 02:03 PM Reporting Lab: [place] [facility] [place] [address] [address] Performing Lab: [place] [facility] [place] [address] [place] CBC AND DIFF (AUTO) EOSINOPHIL S/100 LEUKOCYTES IN BLOOD BY AUTOMATED COUNT 0.7 0.4 - 6.8 09/14 Specimen Type: BLOOD No comment entered. Ordering Provider: SARAH BSUCH Report Released Date/Time: Jun 09, 2024 02:03 PM Reporting Lab: [place] [facility] [place] [address] [address] Performing Lab: [facility] [place] [address] [address] [place] CBC AND DIFF (AUTO) BASOPHILS/ 100 LEUKOCYTES IN BLOOD BY AUTOMATED COUNT 0.5 0.1 - 2.0 09/14 Specimen Type: BLOOD No comment entered. Ordering Provider: SARAH BUSCH Report Released Date/Time: Jun 09, 2024 02:03 PM Reporting Lab: [place] [facility] [place] [address] [address] Performing Lab: [place] [facility] [address] [address] [place] CBC AND DIFF (AUTO) NEUTROPHIL S [#/VOLUME] IN BLOOD BY AUTOMATED COUNT 8.75 10*3/uL 2.20 - 7.60 09/14 H Specimen Type: BLOOD No comment entered. Ordering Provider: SARAH BUSCH Report Released Date/Time: Jun 09, 2024 02:03 PM Reporting Lab: [place] [facility] [place] [facility] [address] [address] Performing Lab: [place] [facility] [address] [address] [place] CBC AND DIFF (AUTO) LYMPHOCYTE S [#/VOLUME] IN BLOOD BY AUTOMATED COUNT 1.31 10*3/uL 1.00 - 3.20 09/14 Specimen Type: BLOOD No comment entered. Ordering Provider: SARAH BUSCH Report Released Date/Time: Jun 09, 2024 02:03 PM Reporting Lab: [place] [facility] [address] [address] Performing Lab: [facility] [address] [address] [place] CBC AND DIFF (AUTO) EOSINOPHIL S [#/VOLUME] IN BLOOD BY AUTOMATED COUNT 0.08 10*3/uL 0.03 - 0.44 09/14 Specimen Type: BLOOD No comment entered. Ordering Provider: SARAH BUSCH Report Released Date/Time: Jun 09, 2024 02:03 PM Reporting Lab: [facility] [address] Performing Lab: [facility] [address] [address] [place] CBC AND DIFF (AUTO) BASOPHILS [#/VOLUME] IN BLOOD BY AUTOMATED COUNT 0.06 10*3/uL 0.01 - 0.13 09/14 Specimen Type: BLOOD No comment entered. Ordering Provider: SARAH BUSCH Report Released Date/Time: Jun 09, 2024 02:03 PM Reporting Lab: [facility] [address] [address] Performing Lab: [facility] [address] [address] [place] CBC AND DIFF (AUTO) IMMATURE GRANULOCYT ES/100 LEUKOCYTES IN BLOOD BY AUTOMATED COUNT 1.9 0.0 - 0.7 09/14 H Specimen Type: BLOOD No comment entered. Ordering Provider: SARAH BUSCH Report Released Date/Time: Jun 09, 2024 02:03 PM Reporting Lab: [address] [address] Performing Lab: [address] [address] [place] CBC AND DIFF (AUTO) IMMATURE GRANULOCYT ES [#/VOLUME] IN BLOOD 0.22 10*3/uL 0.00 - 0.06 09/14 H Specimen Type: BLOOD No comment entered. Ordering Provider: SARAH BUSCH Report Released Date/Time: Jun 09, 2024 02:03 PM Reporting Lab: [address] [address] Performing Lab: [address] [address] [place] CBC AND DIFF (AUTO) NRBC % 0.0 0.0 - 0.0 09/14 Specimen Type: BLOOD No comment entered. Ordering Provider: SARAH BUSCH Report Released Date/Time: Jun 09, 2024 02:03 PM Reporting Lab: [address] [address] Performing Lab: [address] [address] [place] CBC AND DIFF (AUTO) NRBC, ABS 0.00 10*3/uL 0.00 - 0.00 09/14 Specimen Type: BLOOD No comment entered. Ordering Provider: SARAH BUSCH Report Released Date/Time: Jun 09, 2024 02:03 PM Reporting Lab: [address] [address] Performing Lab: [address] [address] [place] VITAMIN D (25-OH) 25-HYDROXY VITAMIN D3 [MASS/VOLU ME] IN SERUM OR PLASMA 42 ng/mL 20 - 50 09/14 Specimen Type: SERUM No comment entered. Ordering Provider: SARAH BUSCH Report Released Date/Time: Jun 09, 2024 02:03 PM Reporting Lab: [facility] [address] [address] Performing Lab: [facility] [address] [place] RETICULO CYTES RETICULOCY ALIX [#/VOLUME] IN BLOOD 1.5 0.6 - 2.0 09/14 Specimen Type: BLOOD No comment entered. Ordering Provider: SARAH BUSCH Report Released Date/Time: Jun 09, 2024 02:03 PM Reporting Lab: [facility] [address] [address] Performing Lab: [facility] [address] [place] RETICULO CYTES RETICULOCY ALIX/100 ERYTHROCYT ES IN BLOOD BY AUTOMATED COUNT 76.3 10*3/uL 30.0 - 90.0 09/14 Specimen Type: BLOOD No comment entered. Ordering Provider: SARAH BUSCH Report Released Date/Time: Jun 09, 2024 02:03 PM Reporting Lab: [facility] [address] [address] Performing Lab: [facility] [address] [address] [place] RETICULO CYTES HEMOGLOBIN [ENTITIC MASS] IN RETICULOCY ALIX BY AUTOMATED COUNT 32.5 pg 27.9 - 42.0 09/14 Specimen Type: BLOOD No comment entered. Ordering Provider: SARAH BUSCH Report Released Date/Time: Jun 09, 2024 02:03 PM Reporting Lab: [facility] [address] [address] Performing Lab: [facility] [address] [place] FERRITIN FERRITIN [MASS/VOLU ME] IN SERUM OR PLASMA 240 ng/mL 20 - 300 09/14 Specimen Type: SERUM No comment entered. Ordering Provider: SARAH BUSCH Report Released Date/Time: Jun 09, 2024 02:03 PM Reporting Lab: [address] [address] Performing Lab: [place] [address] [place] HEMOGLOB IN A1C PANEL HEMOGLOBIN A1C/HEMOGL OBIN.TOTAL IN BLOOD BY HPLC 6.0 4.0 - 5.6 09/14 H Specimen Type: BLOOD Comment: Values obtained from A1C measurement s can vary. For atypical A1C assays, a reported value of 7.0 could actually be between 6.72 and 7.28 if measured by a reference method. A reported value of 9.0 could actually be between 8.73 and 9.27. Ref: http://www. ngsp.org/[place] Pdata.asp Ordering Provider: SARAH BUSCH Report Released Date/Time: Jun 09, 2024 02:03 PM Reporting Lab: [address] [address] Performing Lab: [address] [address] [place] URINALYS IS COLOR OF URINE Yellow 09/14 Specimen Type: URINE Comment: If Glucose = >500 and Ketones are positive, please alert the Physician. Ordering Provider: SARAH BUSCH Report Released Date/Time: Jun 09, 2024 02:03 PM Reporting Lab: [address] [address] Performing Lab: [facility] [address] [place] URINALYS IS APPEARANCE OF URINE Clear 09/14 Specimen Type: URINE Comment: If Glucose = >500 and Ketones are positive, please alert the Physician. Ordering Provider: SARAH BUSCH Report Released Date/Time: Jun 09, 2024 02:03 PM Reporting Lab: [facility] [address] [address] Performing Lab: [address] [address] [place] URINALYS IS GLUCOSE [MASS/VOLU ME] IN URINE Normalmg /dL 09/14 Specimen Type: URINE Comment: If Glucose = >500 and Ketones are positive, please alert the Physician. Ordering Provider: SARAH BUSCH Report Released Date/Time: Jun 09, 2024 02:03 PM Reporting Lab: [facility] [address] [address] Performing Lab: [address] [address] [place] URINALYS IS KETONES [MASS/VOLU ME] IN URINE BY TEST STRIP NEGATIVE mg/dL 09/14 Specimen Type: URINE Comment: If Glucose = >500 and Ketones are positive, please alert the Physician. Ordering Provider: SARAH BUSCH Report Released Date/Time: Jun 09, 2024 02:03 PM Reporting Lab: [address] [address] Performing Lab: [address] [address] [place] URINALYS IS ERYTHROCYT ES [PRESENCE] IN URINE SEDIMENT BY LIGHT MICROSCOPY NEGATIVE mg/dL 09/14 Specimen Type: URINE Comment: If Glucose = >500 and Ketones are positive, please alert the Physician. Ordering Provider: SARAH BUSCH Report Released Date/Time: Jun 09, 2024 02:03 PM Reporting Lab: [address] [address] Performing Lab: [address] [address] [place] URINALYS IS PROTEIN [MASS/VOLU ME] IN URINE BY TEST STRIP NEGATIVE mg/dL 09/14 Specimen Type: URINE Comment: If Glucose = >500 and Ketones are positive, please alert the Physician. Ordering Provider: SARAH BUSCH Report Released Date/Time: Jun 09, 2024 02:03 PM Reporting Lab: [place] [address] Performing Lab: [address] URINALYS IS NITRITE [PRESENCE] IN URINE NEGATIVE mg/dL 09/14 Specimen Type: URINE Comment: If Glucose = >500 and Ketones are positive, please alert the Physician. Ordering Provider: SARAH BUSCH Report Released Date/Time: Jun 09, 2024 02:03 PM Reporting Lab: [place] [address] Performing Lab: [address] [place] URINALYS IS BILIRUBIN. TOTAL [PRESENCE] IN URINE NEGATIVE mg/dL 09/14 Specimen Type: URINE Comment: If Glucose = >500 and Ketones are positive, please alert the Physician. Ordering Provider: SARAH BUSCH Report Released Date/Time: Jun 09, 2024 02:03 PM Reporting Lab: [address] Performing Lab: [address] [address] [place] URINALYS IS SPECIFIC GRAVITY OF URINE BY REFRACTOME TRY 1.022 1.016 - 1.022 09/14 Specimen Type: URINE Comment: If Glucose = >500 and Ketones are positive, please alert the Physician. Ordering Provider: SARAH BUSCH Report Released Date/Time: Jun 09, 2024 02:03 PM Reporting Lab: [facility] [address] [address] Performing Lab: [facility] [address] [address] [place] URINALYS IS PH OF URINE BY TEST STRIP 6.5 5.0 - 9.0 09/14 Specimen Type: URINE Comment: If Glucose = >500 and Ketones are positive, please alert the Physician. Ordering Provider: SARAH BUSCH Report Released Date/Time: Jun 09, 2024 02:03 PM Reporting Lab: [facility] [address] [address] Performing Lab: [address] [address] [place] URINALYS IS UROBILINOG EN [MASS/VOLU ME] IN URINE BY TEST STRIP Normalmg /dL <2.0 - 2.0 09/14 Specimen Type: URINE Comment: If Glucose = >500 and Ketones are positive, please alert the Physician. Ordering Provider: SARAH BUSCH Report Released Date/Time: Jun 09, 2024 02:03 PM Reporting Lab: [facility] [address] [address] Performing Lab: [address] [address] [place] URINALYS IS LEUKOCYTE ESTERASE [PRESENCE] IN URINE BY TEST STRIP NEGATIVE 09/14 Specimen Type: URINE Comment: If Glucose = >500 and Ketones are positive, please alert the Physician. Ordering Provider: SARAH BUSCH Report Released Date/Time: Jun 09, 2024 02:03 PM Reporting Lab: [facility] [address] [address] Performing Lab: [facility] [address] [address] [place] MICROALB UMIN CREATINI NE RATIO PANEL MICROALBUM IN/CREATIN INE [MASS RATIO] IN URINE 4.9 mg/g 0 - 29.9 09/14 Specimen Type: URINE No comment entered. Ordering Provider: SARAH BUSCH Report Released Date/Time: Jun 09, 2024 02:03 PM Reporting Lab: [facility] [address] [address] Performing Lab: [facility] [address] [place] MICROALB UMIN CREATINI NE RATIO PANEL MICROALBUM IN [MASS/VOLU ME] IN URINE 0.7 mg/dL 09/14 Specimen Type: URINE No comment entered. Ordering Provider: SARAH BUSCH Report Released Date/Time: Jun 09, 2024 02:03 PM Reporting Lab: [facility] [address] [address] Performing Lab: [facility] [address] [place] MICROALB UMIN CREATINI NE RATIO PANEL CREATININE [MASS/VOLU ME] IN URINE 142.28 mg/dL 09/14 Specimen Type: URINE No comment entered. Ordering Provider: SARAH BUSCH Report Released Date/Time: Jun 09, 2024 02:03 PM Reporting Lab: [facility] [address] [address] Performing Lab: [facility] [address] [place] HIV 1&2 Ag/Ab SCREEN HIV 1+2 AB+HIV1 P24 AG [PRESENCE] IN SERUM OR PLASMA BY IMMUNOASSA Y NON-REAC TIVE 09/14 Specimen Type: SERUM No comment entered. Ordering Provider: SARAH BUSCH Report Released Date/Time: Jun 09, 2024 02:03 PM Reporting Lab: [facility] [address] [address] Performing Lab: [facility] [address] [address] [facility] HEPATITI S C ANTIBODY (HCV)-AR C HEPATITIS C VIRUS AB [PRESENCE] IN SERUM NON-REAC TIVE 09/14 Specimen Type: SERUM Comment: Hep C Ab: No HCV antibody detected. If recent infection is suspected or other evidence suggests HCV infection, consider HCV nucleic acid testing Ordering Provider: SARAH BUSCH Report Released Date/Time: Jun 09, 2024 02:03 PM Reporting Lab: [facility] [address] [address] Performing Lab: [facility] [address] [address] [facility] Vital Signs Combined list of inpatient and outpatient Vital Signs from Department of Defense and Veterans Affairs, ranging from 12 months to all on record, depending upon the facility. Vital Sign Value Date Comments Source SYSTOLIC BLOOD PRESSURE 130 09/14/2024 08:33:01 [facility] DIASTOLIC BLOOD PRESSURE 86 09/14/2024 08:33:01 [facility] PULSE OXIMETRY 96 09/14/2024 08:33:01 S JOHNATHAN WEIGHT 187 09/14/2024 08:33:01 MIKAELA WHITE BMI 27 kg/m2 09/14/2024 08:33:01 [place] WHITE PULSE 80 09/14/2024 08:33:01 [facility] Encounters Combined list of: 1) Encounters from Department of Veterans Affairs facilities going backup to the last 18 months, not all [place] inpatient encounters are included; 2) Encounters from the Department of Defense facilities going backup to 280 months. Location Location Details Encounter Type Encounter Number Reason For Visit Attending Provider ADM Date DC Date Status Disposition Source [facility] Outpatient Encounter [id number] 08/25 [facility] Outpatient Encounter [id number] 09/06 [facility] Outpatient Encounter [id number] 09/16 [facility] Outpatient Encounter [id number] 10/29 [facility] Outpatient Encounter [id number] 11/23 [facility] [place] OFF[place] O/P EST MOD 30 MIN [id number] Diagnos is: ICD-10- CM C64.9 Maligna nt neoplas m of unsp kidney, except renal pelvis ELIECER CHESTER 11/23 [place] [facility] Outpatient Encounter [id number] 06/06 [facility] Outpatient Encounter [id number] 06/08 [facility] [place] O/P EST MOD 30 MIN [id number] Diagnos is: ICD-10- CM Z86.718 Persona l history of other venous thrombo sis and embolis cher MENDENHALL,OG HUMBERTO M 09/14 [place] [facility] COMPRE OPH EXAM NEW PT 1/> [id number] Diagnos is: ICD-10- CM H25.13 Age-rel ated nuclear catarac t, bilater al MERJR,TANI H B 09/14 [facility] FIT SPECTACLES MONOFOCAL [id number] Diagnos is: ICD-10- CM Z46.0 Encount er for fit/adj st of spectac les and contact lenses GAYLE,TANI H B 09/14 [facility] Out[facility] En[facility] [id number] 10/03 [facility] [id number] 10/11 [facility] [id number] 10/26 [facility] [id number] 12/06 [facility] En[facility] [id number] 12/07 [facility] Social History Combined list of available smoking, tobacco, and other social history from [facility] of Defense and [facility] facilities. Social History Type Response Date Comment Sourc e Tobacco smoking status NHIS VA-TOBACCO USER SOME DAYS /02/2024 [place] History of tobacco use VA-TOBACCO USE WI 30 MIN OF WAKEUP 11/24/2023 [place] Plan of Care List of future care activities from Department of Veterans Affairs facilities. Additional future care activities may be listed in the Assessment and Plan section. Date/Time Care Activity Care Activity Detail Facili ty 11/27/2024 Laboratory - Chemistry Order OCC ULT BLOOD FIT X1 SCREEN ([facility] ONLY) STOOL FECES SP [facility]
--- OUTSIDE RECORDS SUMMARY | 2025-01-04 14:14 | XMS_ITS | Encounter Summary ---
Author Name [facility] Organization [facility] Address [address] [place] [address] Care Team Providers Care Manager Continuous Improvement Name Role Phone FRANCES PHILLIPS Primary Care Provide r Unavailable Selected Encounter This section includes the information on record at [place] for the Encounter. Date/Time Encounter Type Encounter Description Reason Provider Source Sep 14, 2024 08:30 AM OFFICE O/P EST MOD 30 MIN PRIMARY CARE/MEDICINE ICD-10-CM Z86.718 Personal history of other venous thrombosis and embolism FRANCES RODRIGUEZ Rufino Encounter Template Text not used by [place] Assessments - Encounter Diagnoses This section includes the primary and secondary diagnoses documented for the Encounter. Date/Time Primary/Secondary Diagnosis Diagnosis Name Provider Source Sep 16, 2024 12:43 AM PRIMARY Personal history of other venous thrombosis and embolism FRANCES RICO [facility] Sep 16, 2024 12:43 AM SECONDARY Benign prostatic hyperplasia without lower urinry tract symp FRANCES RICO [place] Sep 16, 2024 12:43 AM SECONDARY Male erectile dysfunction, unspecified FRANCES RICO [place] Sep 16, 2024 12:43 AM SECONDARY Malignant neoplasm of unsp kidney, except renal pelvis FRANCES RICO [place] Sep 16, 2024 12:43 AM SECONDARY Pure hypercholesterolem ia, unspecified FRANCES RICO [place] Sep 16, 2024 12:43 AM SECONDARY Tobacco use FRANCES RICO [facility] Lab Results: +/- 30 days of the encounter This section includes the Chemistry and Hematology Lab Results on record with [place] for the patient. Radiology Reports and Pathology Reports are provided separately, in subsequent sections. Lab Results This section contains the Chemistry/Hematology Results that were resulted 30 days before or 30 daysafter the date of the Encounter. Date/Time Source Result Type Result - Unit Interpretation Reference Range Specimen Type Comment Sep 14, 2024 09:52 AM [facility] URIC ACID SERUM Specimen Type: SERUM No comment entered. Ordering Provider: FRANCES DOMINGUEZ Report Released Date/Time: Jun 09, 2024 02:03 PM Reporting Lab: [address] [address] Performing Lab: [address] [address] URIC ACID 7.0 mg/dL 3.5-7.2 Sep 14, 2024 09:52 AM [facility] CBC AND DIFF (AUTO) BLOOD Specimen Ty pe: BLOOD No comment entered. Ordering Provider: FRANCES PHILLIPS Report Released Date/Time: Jun 09, 2024 02:03 PM Reporting Lab: [address] [address] Performing Lab: [address] [address] WBC 11.32 10*3/uL H 4.50-11.00 RBC 5.05 10*6/uL 4.23-5.66 HGB 14.7 g/dL 12.8-17 HCT 44.2 39.2-50.4 MCV 87.5 fL 82-99 MCHC 33.3 g/dL 30.8-35.1 PLT 451 10*3/uL H 140-360 RDW-CV 13.8 12.0-16.0 MONO, ABS 0.90 10*3/uL 0.30-1.10 MCH 29.1 pg 26.2-32.6 NEUT % 77.3 H 43.7-75.8 LYMPH % 11.6 L 14.0-42.3 MONO % 8.0 5.1-13.7 EOS % 0.7 0.4-6.8 BASO % 0.5 0.1-2.0 NEUT, ABS 8.75 10*3/uL H 2.20-7.60 LYMPH, ABS 1.31 10*3/uL 1.00-3.20 EOS, ABS 0.08 10*3/uL 0.03-0.44 BASO, ABS 0.06 10*3/uL 0.01-0.13 IMMATURE GRAN % 1.9 H 0.0-0.7 IMMATURE GRAN, ABS 0.22 10*3/uL H 0.00-0.0 6 NRBC % 0.0 0.0-0.0 NRBC, ABS 0.00 10*3/uL 0.00-0.00 Sep 14, 2024 09:52 AM [facility] VITAMIN D (25-OH) SERUM Specimen Type : SERUM No comment entered. Ordering Provider: FRANCES PHILLIPS Report Released Date/Time: Jun 09, 2024 02:03 PM Reporting Lab: [address] [address] Performing Lab: [address] [address] VITAMIN D (25-OH) 42 ng/mL 20-50 Sep 14, 2024 09:52 AM [facility] RETICULOCYTES BLOOD Specimen Type: B LOOD No comment entered. Ordering Provider: FRANCES PHILLIPS Report Released Date/Time: Jun 09, 2024 02:03 PM Reporting Lab: [address] [address] Performing Lab: [address] [address] RETIC % 1.5 0.6-2.0 RETIC, ABS 76.3 10*3/uL 30.0-90.0 RET-HE 32.5 pg 27.9-42.0 Sep 14, 2024 09:52 AM [facility] FERRITIN SERUM Specimen Type: S CHRISTOPHER No comment entered. Ordering Provider: FRANCES PHILLIPS Report Released Date/Time: Jun 09, 2024 02:03 PM Reporting Lab: [address] [address] Performing Lab: [address] [address] FERRITIN 240 ng/mL 20-300 Sep 14, 2024 09:52 AM [facility] HEMOGLOBIN A1C PANEL BLOOD Specimen T ype: BLOOD Comment: Values obtained from A1C measurements can vary. For atypical A1C assays, a reported value of 7.0 could actually be between 6.72 and 7.28 if measured by a reference method. A reported value of 9.0 could actually be between 8.73 and 9.27. Ref: http://www.ngsp.org/CAPdata.asp Ordering Provider: FRANCES PHILLIPS Report Released Date/Time: Jun 09, 2024 02:03 PM Reporting Lab: [address] [address] Performing Lab: [address] [address] HEMOGLOBIN A1C 6.0 H 4.0-5.6 Sep 14, 2024 09:52 AM [facility] URINALYSIS URINE Specimen Type: U RINE Comment: If Glucose = >500 and Ketones are positive, please alert the Physician. Ordering Provider: FRANCES PHILLIPS Report Released Date/Time: Jun 09, 2024 02:03 PM Reporting Lab: [address] [address] Performing Lab: [address] [address] UA COLOR Yellow Yellow UA APPEARANCE Clear Clear UA GLUCOSE Normal mg/dL Negative UA KETONES NEGATIVE mg/dL Negative UA BLOOD NEGATIVE mg/dL Negative UA PROTEIN NEGATIVE mg/dL Negative UA NITRITE NEGATIVE mg/dL Negative UA BILIRUBIN NEGATIVE mg/dL Negative UA SPECIFIC GRAVITY 1.022 1.016-1.022 UA pH 6.5 5.0-9.0 UA UROBILINOGEN Normal mg/dL <2.0 UA LEUKOCYTE NEGATIVE Negative Sep 14, 2024 09:52 AM [facility] MICROALBUMIN CREATININE RATIO PANEL URINE Specimen Type: URINE No comment entered. Ordering Provider: FRANCES PHILLIPS Report Released Date/Time: Jun 09, 2024 02:03 PM Reporting Lab: [address] [address] Performing Lab: [address] [address] MICROALBUMIN/CREATININE RATIO 4.9 mg/g 0 -29.9 MICROALBUMIN,QUANTITATIVE 0.7 mg/dL RR U NAVAIL CREATININE URINE 142.28 mg/dL Sep 14, 2024 09:52 AM [facility] HIV 1&2 Ag/Ab SCREEN SERUM Specimen T ype: SERUM No comment entered. Ordering Provider: FRANCES PHILLIPS Report Released Date/Time: Jun 09, 2024 02:03 PM Reporting Lab: [address] [address] Performing Lab: [address] [address] HIV 1&2 Ag/Ab SCREEN NON-REACTIVE Nonrea ctive Sep 14, 2024 09:52 AM [facility] HEPATITIS C ANTIBODY (HCV)-ARC SERUM Specimen Type: SERUM Comment: Hep C Ab: No HCV antibody detected. If recent infection is suspected or other evidence suggests HCV infection, consider HCV nucleic acid testing Ordering Provider: FRANCES PHILLIPS Report Released Date/Time: Jun 09, 2024 02:03 PM Reporting Lab: [address] [address] Performing Lab: [address] [address] HEPATITIS C ANTIBODY NON-REACTIVE NON-RE ACTIVE Sep 14, 2024 09:52 AM [facility] BASIC METABOLIC PANEL (fasting) SERUM Specimen Type: SERUM No comment entered. Ordering Provider: FRANCES PHILLIPS Report Released Date/Time: Jun 09, 2024 02:03 PM Reporting Lab: [facility] [address] [facility] [address] Performing Lab: [address] [address] UREA NITROGEN 17 mg/dL 7-25 GLUCOSE 95 mg/dL 65-100 SODIUM 140 mmol/L 135-145 POTASSIUM 4.8 mmol/L 3.5-5.0 CHLORIDE 106 mmol/L 100-110 CO2 27 meq/L 20-30 CREATININE, Serum 1.07 mg/dL 0.50-1.40 eGFR(CKD-EPI 2020) 78 mL/min >60 Sep 14, 2024 09:52 AM [facility] LIVER FUNCTION SERUM Specimen Type: S CHRISTOPHER No comment entered. Ordering Provider: FRANCES PHILLIPS Report Released Date/Time: Jun 09, 2024 02:03 PM Reporting Lab: [address] [address] Performing Lab: [address] [address] PROTEIN,TOTAL 7.5 g/dL 6.0-8.3 ALBUMIN 3.6 g/dL 3.5-5.0 ALKALINE PHOSPHATASE 68 U/L 40-150 AST 14 U/L 5-34 ALT 7 U/L BILIRUBIN, TOTAL 0.4 mg/dL 0.2-1.2 Sep 14, 2024 09:52 AM [place] LIPID PANEL FASTING SERUM Specimen Ty pe: SERUM No comment entered. Ordering Provider: FRANCES PHILLIPS Report Released Date/Time: Jun 09, 2024 02:03 PM Reporting Lab: [address] [address] Performing Lab: [address] [address] CHOLESTEROL 183 mg/dL TRIGLYCERIDE 71 mg/dL 0-150 LDL calculated 124 mg/dL 0-129 CHOL/HDL 4.1 HDL CHOLESTEROL 45 mg/dL 40-60 Sep 14, 2024 09:52 AM [facility] CALCIUM SERUM Specimen Type: S CHRISTOPHER No comment entered. Ordering Provider: FRANCES PHILLIPS Report Released Date/Time: Jun 09, 2024 02:03 PM Reporting Lab: [facility] [address] [facility] [address] Performing Lab: [facility] [address] [facility] [address] CALCIUM 9.3 mg/dL 8.5-10.2 Sep 14, 2024 09:51 AM [place] SYPHILIS ABS W/RFLX SERUM Specimen Ty pe: SERUM Comment: No laboratory evidence of syphilis infection. If recent exposure is suspected, re-draw sample in 2-4 weeks and repeat algorithm. Testing performed by T. pallidum specific immunoassay. Ordering Provider: FRANCES PHILLIPS Report Released Date/Time: Sep 14, 2024 09:04 AM Reporting Lab: [address] [address] Performing Lab: [facility] [address] [facility] [address] SYPHILIS ABS W/RFLX Non Reactive Non [place] ctive Sep 14, 2024 09:[address] [place] [address]/GC DNA PANEL(IN-HOUSE) URINE Speci men Type: URINE Comment: Test performed on the [employer] Genexpert. A negative test results does not exclude the possibility of infection because results may be affected by improper specimen collection, concurrent antibiotic therapy, or the number of organisms in the specimen which may be below the sensitivity of the test. Ordering Provider: FRANCES PHILLIPS Report Released Date/Time: Sep 14, 2024 09:04 AM Reporting Lab: [address] [address] Performing Lab: [address] [address] GC PCR NOT DETECTED Not Detected CT PCR NOT DETECTED Not Detected Sep 14, 2024 09:51 AM [facility] PSA SERUM Sp ecimen Type: SERUM No comment entered. Ordering Provider: FRANCES PHILLIPS Report Released Date/Time: Sep 14, 2024 09:06 AM Reporting Lab: [address] [place] [address] Performing Lab: [place] [facility] [address] [facility] [address] PSA 2.22 ng/mL 0.00-4.00 Vital Signs: All taken on the encounter date This section contains inpatient and outpatient Vital Signs collected on the date of the Encounter. Date/Time Temperature Pulse Blood Pressure Respiratory Rate SP02 Pain Height Weight Body Mass Index Source Sep 14, 2024 08:33 AM 80 130/86 96 187 27 [facility] Social History: Smoking Status (Most current) and Tobacco Use (All prior to encounter date) This section includes the most current, and the historical, smoking and tobacco- related health factors from the [place] facility where the Encounter took place. Current Smoking Status This section includes the most current smoking, or tobacco-related health factor, from the [place] facility where the Encounter took place. Date/Time Current Smoking Status Comment Facil it Nov 24, 2023 01:00 PM VA-TOBACCO USER SOME DAYS [facility] Tobacco Use History This section includes a history of the smoking, or tobacco-related health factors, that were collected on or before the date of the Encounter. The data comes from the [place] facility where the Encounter took place. Date/Time Smoking Status/Tobacco Use Comment F acility Nov 24, 2023 01:00 PM VA-TOBACCO USE ADVICE [facility] Nov 24, 2023 01:00 PM VA-TOBACCO USE SOUNDSCRIBER MECHANIC NO [place] Nov 24, 2023 01:00 PM VA-TOBACCO USE MED NO [place] Nov 24, 2023 01:00 PM VA-TOBACCO USE WI 30 MIN OF WAKE UP [place] Nov 24, 2023 01:00 PM VA-TOBACCO USER SOME DAYS [facility] Encounter Notes: All associated encounter notes This section contains the clinical notes associated to the Encounter. Date/Time Encounter Note(s) Provider Source Sep 16, 2024 12:44 AM LETTERS: LOCAL TITLE: PATIENT LETTER (B) STANDARD TITLE: LETTERS DATE OF NOTE: SEP 16, 2024@00:44 ENTRY DATE: SEP 16, 2024@00:44:56 AUTHOR: Livia PHILLIPS COSIGNER: URGENCY: STATUS: COMPLETED SEP 16, 2024 ANA MARIA ROSARIO [place], [place], [address] Dear ANA MARIA G MCGILLICUDDY, Thank you for coming in for your lab tests. Your recent test results are as follows: LAB CHEMISTRY & HEMATOLOGY Collection DT Specimen Test Name Result Units Ref Range 09/14/2024 09:52 BLOOD WBC 11.32 H K/cmm 4.50 - 11.00 RBC 5.05 M/cmm 4.23 - 5.66 HGB 14.7 g/dL 12.8 - 17 HCT 44.2 % 39.2 - 50.4 MCV 87.5 fl 82 - 99 MCH 29.1 pg 26.2 - 32.6 MCHC 33.3 g/dL 30.8 - 35.1 RDW-CV 13.8 % 12.0 - 16.0 PLT 451 H K/cmm 140 - 360 NEUT, ABS 8.75 H K/cmm 2.20 - 7.60 LYMPH, ABS 1.31 K/cmm 1.00 - 3.20 MONO, ABS 0.90 K/cmm 0.30 - 1.10 EOS, ABS 0.08 K/cmm 0.03 - 0.44 BASO, ABS 0.06 K/cmm 0.01 - 0.13 IMMATURE GRAN, AB 0.22 H K/cmm 0.00 - 0.06 09/14/2024 09:52 SERUM FERRITIN 240 ng/mL 20 - 300 09/14/2024 09:52 SERUM !! HCV AB NON-REACTIVE Ref: NON-REACTIVE HIV Ag/Ab NON-REACTIVE Ref: Nonreactive 09/14/2024 09:51 URINE !! GC PCR NOT DETECTED Ref: Not Detected !! CT PCR NOT DETECTED Ref: Not Detected 09/14/2024 09:51 SERUM !! SYPHYAbs SR-REF Non Reactive Ref: Non Reactive VITAMIN D (25-OH) 42 ng/mL 20 - 50 09/14/2024 09:52 SERUM CALCIUM 9.3 mg/dL 8.5 - 10.2 UREA NITROGEN 17 mg/dL 7 - 25 CREATININE, Serum 1.07 mg/dL 0.50 - 1.40 eGFR(CKD-EPI 2020 78 mL/min Ref: >=60 SODIUM 140 mmol/L 135 - 145 POTASSIUM 4.8 mmol/L 3.5 - 5.0 CHLORIDE 106 mmol/L 100 - 110 CO2 27 mEq/L 20 - 30 URIC ACID 7.0 mg/dL 3.5 - 7.2 PROTEIN,TOTAL 7.5 g/dL 6.0 - 8.3 ALBUMIN 3.6 g/dL 3.5 - 5.0 ALK SHEY 68 U/L 40 - 150 AST 14 U/L 5 - 34 BILIRUBIN, TOTAL 0.4 mg/dL 0.2 - 1.2 ALT 7 U/L <6 - 55 09/14/2024 09:51 SERUM PSA 2.22 ng/mL 0.00 - 4.00 Lipid Profile Collection DT Specimen Test Name Result Units Ref Range 09/14/2024 09:52 SERUM CHOLESTEROL 183 mg/dL <7 - 199 09/14/2024 09:52 SERUM TRIGLYCERIDE 71 mg/dL 0 - 150 09/14/2024 09:52 SERUM HDL CHOLESTEROL 45 mg/dL 40 - 60 09/14/2024 09:52 SERUM LDL calculated 124 mg/dL 0 - 129 09/14/2024 09:52 SERUM CHOL/HDL 4.1 GLUCOSE 95 mg/dL 65 - 100 09/14/2024 09:52 BLOOD !! HEMOGLOBIN A1C 6.0 H % 4.0 - 5.6 09/14/2024 09:52 URINE !! UA COLOR Yellow Ref: Yellow !! UA APPEARANCE Clear Ref: Clear !! UA pH 6.5 5.0 - 9.0 !! UA GLUCOSE Normal mg/dL Ref: Negative !! UA KETONES NEGATIVE mg/dL Ref: Negative !! UA BLOOD NEGATIVE mg/dL Ref: Negative !! UA PROTEIN NEGATIVE mg/dL Ref: Negative !! UA LEUKOCYTE NEGATIVE Ref: Negative !! UA NITRITE NEGATIVE mg/dL Ref: Negative !! UA BILIRUBIN NEGATIVE mg/dL Ref: Negative !! UA UROBILINOGEN Normal mg/dL Ref: <2.0 !! SpeGra 1.022 1.016 - 1.022 If you do not already do so, going forward, I invite you to view your labs in [facility]. If you are not able to view them, you might need to upgrade your account to premium. Please call [phone] and speak with my nurse Kp if you have any questions or concerns. Sincerely, Frances Rai MD [facility] - Primary Care [address] [place] [id number] [phone] SARAH PHILLIPS [facility] 26, 2024 08:35 AM PREVENTIVE MEDICIN E NURSING NOTE: LOCAL TITLE: CLINICAL REMINDERS/NURSING STANDARD TITLE: PREVENTIVE MEDICINE NURSING NOTE DATE OF NOTE: SEP 14, 2024@08:35 ENTRY DATE: SEP 14, 2024@08:35:13 AUTHOR: BETTY STOCKTON EXP COSIGNER: URGENCY: STATUS: COMPLETED Pneumococcal Conjugate Vaccine (PCV15/PCV20): Refuses PCV vaccine Immunization: PNEUMOCOCCAL CONJUGATE, UNSPECIFIED FORMULATION Refusal Reason: PATIENT DECISION Patient refuses all immunization(s) in the PneumoPCV group Date Documented: 09/14/24 08:35 Influenza Immunization: Deferral / Refusal Deferred due to a precaution (i.e., acute illness, etc.) COVID-19 Immunization: Refused Moderna Monovalent COVID-19 vaccine Immunization: COVID-19 (MODERNA), MRNA, LNP-S, PF, 50 MCG/0.5 ML (AGES 12+ YEARS) Refusal Reason: PATIENT DECISION Patient refuses all immunization(s) in the COVID-19 group Date Documented: 09/14/24 08:35 Tdap Immunization: The patient declines to receive the recommended dose of Tdap vaccine. Immunization: TDAP Refusal Reason: PATIENT DECISION Patient refuses all immunization(s) in the TDAP group Date Documented: 09/14/24 08:35 Herpes Zoster (Shingles) Vaccine: The patient declines to receive the recommended dose of zoster (shingles) vaccine. Immunization: ZOSTER RECOMBINANT Refusal Reason: PATIENT DECISION Patient refuses all immunization(s) in the ZOSTER group Date Documented: 09/14/24 08:36 Eye Care At-Risk Screen : Patient identified to be at risk for the following eye condition(s): MACULAR DEGENERATION: Macular Degeneration Risk Factors Information: Reminder Term: VA-AMD RISK FACTORS Encounter Diagnosis: 11/24/2023@13:00 Z72.0 (ICD-10-CM) Tobacco use rank: SECONDARY Prov. Narr. - Tobacco user ([facility] [phone]) Action: Patient has a future eye care appointment scheduled within the next 90 days. Date of Appointment: TODAY VET HAS APPT AT [facility] /howard/ BETTY STOCKTON LPN Licensed Practical Nurse Signed: 09/14/2024 08:36 BETTY STOCKTON Sep 14, 2024 08:30 AM PHYSICIAN NOTE: LOCAL TITLE: NOTE STANDARD TITLE: PHYSICIAN NOTE DATE OF NOTE: SEP 14, 2024@08:30 ENTRY DATE: SEP 13, 2024@18:21:01 AUTHOR: Livia PHILLIPS EXP COSIGNER: URGENCY: STATUS: COMPLETED Pt is 63 y/o M with PMH of HL, metastatic renal cell carcinoma s/p R nephrectomy 2015, lung wedge resections , resection of a brain metastasis, radiation and immunotherapy, PE, GERD, BPH, ED, microscopic hematuria Initial visit with me [facility] Eric Quintero [facility] q6m Other providers: --ONCOLOGY at [facility] Dr Keys --Urology Dr. Talley --Renal Dr Aleksandar Lu --Radiation oncology Dr Villar [facility] Patient reports feeling fine has been fien , has no complaints #metastatic renal cell carcinoma s/p R nephrectomy 2016 lung wedge resections resection of a brain metastasis, radiation and immunotherapy MRI brain 06/2024 showed new left brain metastasis, f/u MRI scheduled for 10/12 and plan to get radiation - f/w Radiation oncology Dr Villar at [facility] monitoring by oncology with immaging q3-4 m s/p radiation and immunotherapy PAST MEDICAL HISTORY: --HL --Renal cell carcinoma 1. RCC, R Side: Dx'd 2015; Eight Yrs Out as of 2023; 2. Still Sees ONCO at [facility] as of DEC 11 3. s/p Nephrectomy, R Side 2015; Thereafter METS Noted Lungs and Brain 4. Craniotomy Done 2015; Bilat Lung Nodules Resected 2015 5. IVC Filter Placed R Fem Artery after He Had a DVT, R Calf in 2019 6. Still on DOAC as or DEC 11 7. 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/p IVC placement on apixaban --Peripheral venous insufficiency --GERD --CKD --BPH --ED --Chronic osteoarthritis OA, C-Spine w/o Spin Stenosis; Neck Pain Non-Radicular as of DEC 11 --Plantar fasciitis Plantar Fasciitis, R Foot; Has Done [facility]CS Inj.'s via Podiatry --Tobacco user Used to Smoke Daily; Now Just Occasionally PAST SURGICAL HISTORY: -- s/p Nephrectomy, R Side 2015 -- Resection of bilateral lung nodules x 3 -- Hernia repair -- IVC filter placement -- Craniotomy and right frontal lesion resection (path RCC)2019 ALLERGIES: NKDA MEDICATIONS: -- Non-VA APIXABAN 5MG BID -- Non-VA EZETIMIBE 10MG TAB -- Non-VA SILDENAFIL 100MG FAMILY HISTORY: --DM: no --Cancer: Mother leukemia in the 80s, father throat cancer (smoker) --NH: father NH at 70 --CVA: no SOCIAL HISTORY: --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 --Cohabitation: , lives by himself --Children: 2, 19 and 15 y/o (2023) --Diet:regular, home cooking, more salads --Exercise: lately sedentary, used to play hockey, no motivation last 2 years --Caffeine: 3c/d --EtOH: quit 35 y/ago --Tob: occasionally still smoking few ciggaretes per day, h/o ~15 PPD motivated to stop - --MJ: denies --Illicits: denies since 1988 --Sexual activity: none lately --Eye: scheduled for today --Dental: UTD --Hospitalizations: none recently ROS: Constitutional: fatigue +, no fever/no chills, no ns Eyes: no decreased vision/blurry vision Ears/Nose/Throat: no hearing change Respiratory: no cough/wheezing/SOB Cardiovascular: no CP /palpitations Gastrointestinal: no abdominal pain/bloody/black stools :no dysuria/hematuria/trouble voiding MSK: no joint pain/myalgia Neuro: no dizziness/H/A Skin: no pruritus/rash PHYSICAL EXAM: Vital Signs: Blood Pressure: 130/86 (09/14/2024 08:33) 116/79 (11/24/2023 13:31) Pulse: 80 (09/14/2024 08:33) Respiration: 18 (11/24/2023 13:31) Temperature: Refused (11/24/2023 13:31) Patient Weight: 187 lb [84.82 kg] (09/14/2024 08:33) 189 lb [85.73 kg] (11/24/2023 13:31) Gen: pleasant, engaged, NAD Chest/CV: RRR Lungs: CTA B/L Abdomen: BS+, Soft,NT, ND Extremities: wwp, no edema LABORATORY:08/2024 WBC: 11.32 H HGB: 14.7 HCT: 44.2 MCV: 87.5 PLT: 451 H FERRITIN (WR): 240 CALCIUM: 9.3 VITAMIN D TOTAL: 42 HGB A1C (WR): 6.0 H GLUCOSE: 95 UREA NITROGEN: 17 CREATININE-EGFR: 1.07 eGFR CKD-EPI 2020: 78 SODIUM: 140 POTASSIUM: 4.8 CHLORIDE: 106 CO2: 27 URIC ACID: 7.0 PROTEIN,TOTAL: 7.5 ALBUMIN: 3.6 ALKALINE PHOSPHATASE: 68 BILIRUBIN,TOT.: 0.4 SGOT: 14 SGPT: 7 CHOLESTEROL: 183 TRIGLYCERIDE: 71 LDL CHOL: 124 CHOL/HDL RATIO: 4.1 HDL: 45 PROSTATIC SP ANTIGEN: 2.22 NG PCR: NOT DETECTED CT PCR: NOT DETECTED RPR AUTO: Non Reactive HEPATITIS C AB: NON-REACTIVE HIV Ag/Ab COMBO: NON-REACTIVE MICROALB/CR RATIO: 4.9 MICROALBUMIN URINE: 0.7 CREATININE URINE: 142.28 U/A negative ASSESSMENT/PLAN: Pt is 63 y/o M with PMH of HL, metastatic renal cell carcinoma s/p R nephrectomy 2015, lung wedge resections , resection of a brain metastasis, radiation and immunotherapy, PE, GERD, BPH, ED, microscopic hematuria #h/o DVT - on apixaban, IVC placed 2019 #HL: LDL 124 - on ezetemibe #metastatic RCC s/p RIGHT Nephrectomy in 2016 lung wedge resections , resection of a brain metastasis, radiation and immunotherapy-now with new brain metastasis plan to have radiation -f/w ONCO at [facility], nephrology, radiation oncology #BPH - LUTS not botherosme at this time #ED - on sildenafil -f/w Dr Talley (who did nephrectomy) #tobacco use: -motivated to stop, agreed to SCP -referral placed Healthcare maintenance: --Lipids: A1c 6 (08/2024) --Diabetes: LDL 124 (08/2024) --Colon CA (45-75): colonoscopy scheduled for 10/31/2024 at [place] --Lung CA: f/w oncology for metast/RCC --PSA PSA 2.22 (08/2024) --AAA (smoker/65): --Influenza (yrly): declined --COVID: declined --PCV13 --PCV23: --HZV (>60yrs, x1): --RZV (>50yrs, x1): --TDAP: --Hep C screen: 2023 negative --HIV screen: 2023 negative --DEXA: --Advanced Directives: Comanagement - prefers to have most aspects of health maintenance, chronic condition(s) and medication management to non-VA PCP. Address at next visit: Return to clinic to see me in _12__ months, sooner PRN. Virtual ( ), F2F ( ) ( )non fasting labs ordered prior to f/u ( )fasting labs ordered prior to f/u ( )no labs needed ( )request labs from outside provider (x )request records from outside providers non VA PCP and update immunizations Medication Reconciliation: Outpatient: Has the patient been taking medications as documented in the EMLR? YES: The patient has been taking medications as documented in the EMLR. Essential Medication List for Review used to complete this medication reconciliation. INCLUDED IN THIS LIST: Alphabetical list of active outpatient prescriptions dispensed from this VA (local) and dispensed from another VA or DoD facility (remote) as well as inpatient orders (local, pending and active), local clinic medications, locally documented non-VA medications, and local prescriptions that have or been discontinued in the past 90 days. - All changes in medications, including all non-VA/Herbal/OTC medications were entered into [facility]S. - If there were any medications the patient should no longer take, they were discontinued. - The patient/caregiver was instructed to update this list, discard old lists, and take this list to the next appointment, whether with a VA or non-VA provider. /howard/ FRANCES PHILLIPS MD PHYSICIAN Signed: 09/16/2024 00:43 Receipt Acknowledged By: 09/18/2024 08:46 /howard/ SARAH PINEDA [facility] Sep 07, 2024 01:37 PM ADMINISTRATIVE NOT E: LOCAL TITLE: ADMINISTRATIVE NOTE STANDARD TITLE: ADMINISTRATIVE NOTE DATE OF NOTE: SEP 07, 2024@13:37 ENTRY DATE: SEP 07, 2024@13:37:10 AUTHOR: SHELBY TIRADO EXP COSIGNER: URGENCY: STATUS: COMPLETED [facility] [address] [place] [phone] * ANA MARIA ROSARIO [address] [place], [place] [address] Date: SEP 07, 2024 re: This is a reminder of your upcoming PCP appt with . Appointment Date: Aug@08:30 Appointment Type: In-person visit Fasting blood work NON fasting blood work CONFIRMED APPT WITH THE . HE IS BRINGING IN LABS FROM [facility]. Sincerely, Office Staff for: Primary Care Provider [facility] [address] [place] [id number] T [phone] F [phone] Upcoming Appointments: 09/14/2024 08:30 CWM/SO/PACT 5 APPOINTMENT [facility] [place] (SPOPC OR SO = [place], [facility]) (GOPC OR GO = [facility], [address] [facility]) (NHM or NO = [facility]) (VVC - Video Call) (Tel-X Telephone Visit) (TH - Telehealth) /howard/ SHELBY GASTON Signed: 09/07/2024 13:38 SHELBY TIRADO
--- OUTSIDE RECORDS SUMMARY | 2025-01-04 14:14 | XMS_ITS ---
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 Date/Time Encounter Type Encounter Description Reason Provider Source Sep 14, 2024 01:00 PM COMPRE OPH EXAM NEW PT 1/> OPTOMETRY ICD-10-CM H25.13 Age-related nuclear cataract, bilateral MERHAR,CAR B IHE Encounter Template Text not used by [place] Assessments - Encounter Diagnoses This section includes the primary and secondary diagnoses documented for the Encounter. Date/Time Primary/Secondary Diagnosis Diagnosis Name Provider Source Sep 14, 2024 01:25 PM PRIMARY Age-related nuclear cataract, bilateral MERHAR,CAR B [facility] [place] [facility] Sep 14, 2024 01:25 PM SECONDARY Hypermetropia, bilateral MERHAR,CAR B [facility] [place] [facility] Sep 14, 2024 01:25 PM SECONDARY Other chorioretinal scars, right eye MERHAR,CAR B [facility] [place] [facility] Lab Results: +/- 30 days of the encounter This section includes the Chemistry and Hematology Lab Results on record with [facility] for the patient. Radiology Reports and Pathology Reports are provided separately, in subsequent sections. Lab Results This section contains the Chemistry/Hematology Results that were resulted 30 days before or 30 daysafter the date of the Encounter. Date/Time Source Result Type Result - Unit Interpretation Reference Range Specimen Type Comment Sep 14, 2024 09:52 AM [place] URIC ACID SERUM Specimen Type: SERUM No comment entered. Ordering Provider: FRANCES DOMINGUEZ Report Released Date/Time: Jun 09, 2024 02:03 PM Reporting Lab: [address] [address] Performing Lab: [address] [address] URIC ACID 7.0 mg/dL 3.5-7.2 Sep 14, 2024 09:52 AM [place] CBC AND DIFF (AUTO) BLOOD Specimen Ty pe: BLOOD No comment entered. Ordering Provider: FRANCES PHILLIPS Report Released Date/Time: Jun 09, 2024 02:03 PM Reporting Lab: [address] [address] Performing Lab: [address] [address] WBC 11.32 10*3/uL H 4.50-11.00 RBC 5.05 [...] 10*3/uL 0.00-0.00 Sep 14, 2024 09:52 AM [place] VITAMIN D (25-OH) SERUM Specimen Type : SERUM No comment entered. Ordering Provider: FRANCES PHILLIPS Report Released Date/Time: Jun 09, 2024 02:03 PM Reporting Lab: [address] [address] Performing Lab: [address] [address] VITAMIN D (25-OH) 42 ng/mL -50 Sep 14, 2024 09:52 AM [place] RETICULOCYTES BLOOD Specimen Type: B LOOD No comment entered. Ordering Provider: FRANCES PHILLIPS Report Released Date/Time: Jun 09, 2024 02:03 PM Reporting Lab: [address] [address] Performing Lab: [address] [address] RETIC % 1.5 0.6-2.0 RETIC, ABS 76.3 10*3/uL 30.0-90.0 RET-HE 32.5 pg 27.9-42.0 Sep 14, 2024 09:52 AM [place] FERRITIN SERUM Specimen Type: S CHRISTOPHER No comment entered. Ordering Provider: FRANCES PHILLIPS Report Released Date/Time: Jun 09, 2024 02:03 PM Reporting Lab: [address] [address] Performing Lab: [address] [address] FERRITIN 240 ng/mL -300 Sep 14, 2024 09:52 AM [place] HEMOGLOBIN A1C PANEL BLOOD Specimen T ype: [...] Jun 09, 2024 02:03 PM Reporting Lab: [address] [address] Performing Lab: [address] [address] HEMOGLOBIN A1C 6.0 H 4.0-5.6 Sep 14, 2024 09:52 AM [place] URINALYSIS URINE Specimen Type: U RINE Comment: If Glucose = >500 and Ketones are positive, please alert the Physician. Ordering Provider: FRANCES PHILLIPS Report Released Date/Time: Jun 09, 2024 02:03 PM Reporting Lab: [address] [address] Performing Lab: [address] [address] UA COLOR Yellow Yellow UA APPEARANCE Clear Clear UA GLUCOSE Normal mg/dL Negative UA KETONES NEGATIVE mg/dL Negative UA BLOOD NEGATIVE mg/dL Negative UA PROTEIN NEGATIVE mg/dL Negative UA NITRITE NEGATIVE mg/dL Negative UA BILIRUBIN NEGATIVE mg/dL Negative UA SPECIFIC GRAVITY 1.022 1.016-1.022 UA pH 6.5 5.0-9.0 UA UROBILINOGEN Normal mg/dL <2.0 UA LEUKOCYTE NEGATIVE Negative Sep 14, 2024 09:52 AM [place] MICROALBUMIN CREATININE RATIO PANEL URINE Specimen Type: URINE No comment entered. Ordering Provider: FRANCES PHILLIPS Report Released Date/Time: Jun 09, 2024 02:03 PM Reporting Lab: [address] [address] Performing Lab: [address] [address] MICROALBUMIN/CREATININE RATIO 4.9 mg/g 0 -29.9 MICROALBUMIN,QUANTITATIVE 0.7 mg/dL RR U NAVAIL CREATININE URINE 142.28 mg/dL Sep 14, 2024 09:52 AM [place] HIV 1&2 Ag/Ab SCREEN SERUM Specimen T ype: SERUM No comment entered. Ordering Provider: FRANCES PHILLIPS Report Released Date/Time: Jun 09, 2024 02:03 PM Reporting Lab: [address] [address] Performing Lab: [address] [address] HIV 1&2 Ag/Ab SCREEN NON-REACTIVE Nonrea ctive Sep 14, 2024 09:52 AM [place] HEPATITIS C ANTIBODY (HCV)-ARC SERUM Specimen Type: SERUM Comment: Hep C Ab: No HCV antibody detected. If recent infection is suspected or other evidence suggests HCV infection, consider HCV nucleic acid testing Ordering Provider: FRANCES PHILLIPS Report Released Date/Time: Jun 09, 2024 02:03 PM Reporting Lab: [address] [address] Performing Lab: [address] [address] HEPATITIS C ANTIBODY NON-REACTIVE NON-RE ACTIVE Sep 14, 2024 09:52 AM [place] BASIC METABOLIC PANEL (fasting) SERUM Specimen Type: SERUM No comment entered. Ordering Provider: FRANCES PHILLIPS Report Released Date/Time: Jun 09, 2024 02:03 PM Reporting Lab: [address] [address] Performing Lab: [address] [address] UREA NITROGEN 17 mg/dL 7-25 GLUCOSE 95 mg/dL 65-100 SODIUM 140 mmol/L 135-145 POTASSIUM 4.8 mmol/L 3.5-5.0 CHLORIDE 106 mmol/L 100-110 CO2 27 meq/L 20-30 CREATININE, Serum 1.07 mg/dL 0.50-1.40 eGFR(CKD-EPI 2020) 78 mL/min >60 Sep 14, 2024 09:52 AM [place] LIVER FUNCTION SERUM Specimen Type: S CHRISTOPHER No comment entered. Ordering Provider: FRANCES PHILLIPS Report Released Date/Time: Jun 09, 2024 02:03 PM Reporting Lab: [facility] [address] [address] Performing Lab: [facility] [address] [address] PROTEIN,TOTAL 7.5 g/dL 6.0-8.3 ALBUMIN 3.6 g/dL 3.5-5.0 ALKALINE PHOSPHATASE 68 U/L 40-150 AST 14 U/L 5-34 ALT 7 U/L BILIRUBIN, TOTAL 0.4 mg/dL 0.2-1.2 Sep 14, 2024 09:52 AM [place] LIPID PANEL FASTING SERUM Specimen Ty pe: SERUM No comment entered. Ordering Provider: FRANCES PHILLIPS Report Released Date/Time: Jun 09, 2024 02:03 PM Reporting Lab: [facility] [address] [address] Performing Lab: [facility] [address] [address] CHOLESTEROL 183 mg/dL TRIGLYCERIDE 71 mg/dL 0-150 LDL calculated 124 mg/dL 0-129 CHOL/HDL 4.1 HDL CHOLESTEROL 45 mg/dL 40-60 Sep 14, 2024 09:52 AM [place] CALCIUM SERUM Specimen Type: S CHRISTOPHER No comment entered. Ordering Provider: FRANCES PHILLIPS Report Released Date/Time: Jun 09, 2024 02:03 PM Reporting Lab: [facility] [address] [address] Performing Lab: [facility] [address] [address] CALCIUM 9.3 mg/dL 8.5-10.2 Sep 14, 2024 09:51 AM [place] SYPHILIS ABS W/RFLX SERUM Specimen Ty pe: SERUM Comment: No laboratory evidence of syphilis infection. If recent exposure is suspected, re-draw sample in 2-4 weeks and repeat algorithm. Testing performed by T. pallidum specific immunoassay. Ordering Provider: FRANCES PHILLIPS Report Released Date/Time: Sep 14, 2024 09:04 AM Reporting Lab: [facility] [address] [address] Performing Lab: [facility] [address] [facility] [address] SYPHILIS ABS W/RFLX Non Reactive Non Josy ctive Sep 14, 2024 09:[address] [place] [address]/GC DNA PANEL(IN-HOUSE) URINE Speci men Type: URINE Comment: Test performed on the Access[employer] Genexpert. A negative test results does not exclude the possibility of infection because results may be affected by improper specimen collection, concurrent antibiotic therapy, or the number of organisms in the specimen which may be below the sensitivity of the test. Ordering Provider: FRANCES PHILLIPS Report Released Date/Time: Sep 14, 2024 09:04 AM Reporting Lab: [facility] [address] [address] Performing Lab: [facility] [address] [address] GC PCR NOT DETECTED Not Detected CT PCR NOT DETECTED Not Detected Sep 14, 2024 09:51 AM [place] PSA SERUM Sp ecimen Type: SERUM No comment entered. Ordering Provider: FRANCES PHILLIPS Report Released Date/Time: Sep 14, 2024 09:06 AM Reporting Lab: [facility] [address] [address] Performing Lab: [facility] [address] [address] PSA 2.22 ng/mL 0.00-4.00 Encounter Notes: All associated encounter notes This section contains the clinical notes associated to the Encounter. Date/Time Encounter Note(s) Provider Source Sep 14, 2024 12:47 PM OPTOMETRY NOTE: LOCAL TITLE: OPTOMETRY NOTE STANDARD TITLE: OPTOMETRY NOTE DATE OF NOTE: SEP 14, 2024@12:47 ENTRY DATE: SEP 14, 2024@12:47:48 AUTHOR: CAR ARAUJO EXP COSIGNER: URGENCY: STATUS: COMPLETED 63 WHITE MALE NOT OR Last eye exam: never Reason for Visit/CC: new patient here for a comprehensive eye exam. Wears OTC readers +2.00 - work ok but could be better. Distance vision is fine. OHx: (-) Pain: (-) AGUDELO: (-) Diplopia: (-) Flashes: (+) Floaters: reeports occasional ocular migraine (-) Amaurosis Fugax/Tia's: (-) Eye Injury: (+) Eye Surgery: cyst left eyelid removed age 18 (-) TBI (-) FOHx: MHx: Code Description C64.9 Renal cell carcinoma ([facility] [id number]) M19.90 Chronic osteoarthritis ([facility] [id number]) M72.2 Plantar fasciitis ([facility] [id number]) E78.00 Hypercholesterolemia ([facility] [id number]) Z72.0 Tobacco user ([facility] [id number]) N52.9 Primary erectile dysfunction ([facility] [id number]) N40.0 Benign prostatic hyperplasia ([facility] [id number]) Other: SYSTEMIC MEDICATIONS/OCULAR MEDICATIONS: Active and Recently Outpatient Medications (excluding Supplies): Active Non-VA Medications Status 1) Non-VA APIXABAN 5MG TAB 5MG BY MOUTH EVERY 12 HOURS ACTIVE 2) Non-VA EZETIMIBE 10MG TAB 10MG BY MOUTH ONCE DAILY ACTIVE 3) Non-VA SILDENAFIL CITRATE 100MG TAB 100MG BY MOUTH ACTIVE DIRECTED ALLERGIES: Patient has answered NKA LAST BP: 130/86 (09/14/2024 08:33) PERTINENT LABS: HEMOGLOBIN A1C; BLOOD Juan David. Date: 09/14/24 09:52 Test Name Result Units Range HEMOGLOBIN A1C 6.0 H % 4.0 - 5.6 DVA ( x )sc ( )cc OD 20/40-1 OS 20/25-2 slow Pupils: PERRL (-)APD EOM: Full all meridia OU, (-) pain/diplopia Confrontation Visual Gracia: Full all meridia OU Subjective: OD +1.50 -0.75 x 080 20/20 OS +1.25 -0.25 x 150 20/20 Add: +2.25 20/20 OU Final Rx: OD +1.00 -0.75 x 080 OS +0.75 -0.25 x 150 Add: +2.25 trial framed distance and near SLE: Lids/Lashes: clear OU Conjunctiva: white and quiet OU Corneas: small round scar OD, clear OS Iris: flat and clear OU Anterior Chamber: deep and quiet OU Angles: open OU Lens: tr NS OU TAP @ 1:08pm OD 10 mm Hg OS 11 mm Hg Dilating Drops: 1 gtt 1% Tropicamide OU (Pt. ed. on side effects) Vitreous: Syneresis OU C/D (Size and Rim Description) OD 0.25 pink & healthy OS 0.25 pink & healthy Macula OD flat and clear OS flat and clear A/V: tortuosity OU Posterior Pole: clear OU Periphery: Flat and intact (-)holes, tears, detachments 360 OU pigmented chorioretinal scar inferior temp OD Assessment/Plan: 1. minimal Nuclear sclerosis cataracts OU, not visually significant. Monitor 2. chorioretinal scar OD - pt ed, monitor 3. hyperopia OU, presbyopia OU - order new DVO and NVO RTC 2 years or earlier PRN patient offered and declined printed medication list Medication Reconciliation: Outpatient: Has the patient been [...] whether with a VA or non-VA provider. JLV Link Data on this list may not be complete. Please check JLV. Allergies/ADRs (Tool #5) FACILITY ALLERGY/ADR -------- No Remote Allergy/ADR Data available for this patient [facility] [place] [facility] No Known Allergies Med Recon [facility] (Tool #1) INCLUDED IN THIS LIST: Alphabetical list of active outpatient prescriptions dispensed from this [place] (local) and dispensed from another [place] or [facility] facility (remote) as well as inpatient orders (local pending and active), local clinic medications, locally documented non-VA medications, and local prescriptions that have or been discontinued in the past 90 days. Non-VA Meds Last Documented On: Nov 24, 2023 NOTE The display of VA prescriptions dispensed from another VA or [facility] facility (remote) is limited to active outpatient prescription entries matched to National Drug File at the originating site and may not include some items such as investigational drugs, compounds, etc. NOT INCLUDED IN THIS LIST: Medications self-entered by the patient into personal health records (i.e. ApoVax) are NOT included in this list. Non-VA medications documented outside this [place], remote inpatient orders (regardless of status) and remote clinic medications are NOT included in this list. The patient and provider must always discuss medications the patient is taking, regardless of where the medication was dispensed or obtained. Non-VA APIXABAN 5MG TAB TAKE ONE TABLET BY MOUTH EVERY 12 HOURS Non-VA EZETIMIBE 10MG TAB TAKE ONE TABLET BY MOUTH ONCE DAILY Non-VA SILDENAFIL CITRATE 100MG TAB TAKE ONE TABLET BY MOUTH DIRECTED SUPPLIES EYE: Visual Function Reminder: Normal Vision: 20/25 or better: Unspecified disorder of refraction or accommodation (367.9). 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
== END 2025-01-04 12:18 | disposition home or self-care (01) ==
LOC: HO.HMCFM 11:25
PROVIDERS: PCP Family Medicine; Visit Provider Physician Assistant Medical
DX: R05.9 Cough, unspecified (principal)

== ENCOUNTER 2025-05-08 09:37 | Outpatient (REF) | payer MEDICARE, OTHER, SELFPAY ==
[2025-05-08 10:52] LABS: MANUAL DIFF FLAG NO
[2025-05-08 11:04] LABS: Hematocrit 45.7 % (42.0-52.0); Hemoglobin 15.4 g/dl (14.0-18.0); Imm Gran Abs Auto 0.02 X10*3/uL (0.00-0.03); Imm Gran Pct Auto 0.2 % (0.0-0.4); Lymphocytes Absolute Auto 1.9 X10*3/uL (1.2-4.9); Mean Corpuscular HGB Conc 33.7 g/dl (31.0-36.0); Mean Corpuscular Hemoglobin 29.6 pg (27.0-33.0); Mean Corpuscular Volume 87.9 fL (80.0-98.0); NRBC Abs Auto 0.000 X10*3/uL (0.0-0.012); NRBC Pct Auto 0.0 /100WBC (0.0-0.2); Platelet Count 248 X10*3/uL (160-400); Red Blood Count 5.20 X10*6/uL (4.60-5.80); White Blood Count 8.2 X10*3/uL (4.8-10.8)
[2025-05-08 11:14] LABS: Alanine Aminotransferase 24 U/L (0-40); Albumin Level 4.2 g/dL (3.5-5.0); Alkaline Phosphatase 84 U/L (39-117); Anion Gap 11 (12-20); Aspartate Amino Transferase 38 U/L (5-37); Blood Urea Nitrogen 10 mg/dL (9-16); Calcium 8.5 mg/dL (8.4-10.2); Carbon Dioxide 28 mmol/L (22-29); Chloride 105 mmol/L (96-108); Estimated Glomerular Filt Rate > 60; Potassium 3.9 mmol/L (3.3-5.1); Sodium 140 mmol/L (135-145); Total Protein 7.3 g/dL (6.5-8.0)
[2025-05-08 11:29] LABS: Thyroid Stimulating Hormone 11.28 uIU/mL (0.32-4.0)
== END 2025-05-08 09:38 | disposition home or self-care (01) ==
LOC: HO.10HDL 09:37
DX: E03.9 Hypothyroidism, unspecified (principal); C64.9 Malignant neoplasm of unspecified kidney, except renal pelvis
CPT/HCPCS: 36415; 80053; 84443; 85025

== ENCOUNTER 2025-07-11 10:04 | Outpatient (REF) | payer MEDICARE, OTHER, SELFPAY ==
[2025-07-11 11:30] LABS: MANUAL DIFF FLAG NO
[2025-07-11 11:31] LABS: Appearance Urine Clear; Glucose Urine UA Negative (Negative); PH 6.0 (5.0-9.0); Specific Gravity - Urine 1.025 (1.005-1.025); UMIC TRIGGER UA YES
[2025-07-11 11:42] LABS: Hematocrit 44.2 % (42.0-52.0); Hemoglobin 14.8 g/dl (14.0-18.0); Imm Gran Abs Auto 0.03 X10*3/uL (0.00-0.03); Imm Gran Pct Auto 0.4 % (0.0-0.4); Lymphocytes Absolute Auto 2.0 X10*3/uL (1.2-4.9); Mean Corpuscular HGB Conc 33.5 g/dl (31.0-36.0); Mean Corpuscular Hemoglobin 31.5 pg (27.0-33.0); Mean Corpuscular Volume 94.0 fL (80.0-98.0); NRBC Abs Auto 0.000 X10*3/uL (0.0-0.012); NRBC Pct Auto 0.0 /100WBC (0.0-0.2); Platelet Count 264 X10*3/uL (160-400); Red Blood Count 4.70 X10*6/uL (4.60-5.80); White Blood Count 7.0 X10*3/uL (4.8-10.8)
[2025-07-11 12:21] LABS: Alanine Aminotransferase 13 U/L (0-40); Albumin Level 4.1 g/dL (3.5-5.0); Alkaline Phosphatase 66 U/L (39-117); Anion Gap 9 (12-20); Aspartate Amino Transferase 35 U/L (5-37); Blood Urea Nitrogen 12 mg/dL (9-16); Calcium 8.4 mg/dL (8.4-10.2); Carbon Dioxide 28 mmol/L (22-29); Chloride 109 mmol/L (96-108); Estimated Glomerular Filt Rate > 60; Potassium 4.0 mmol/L (3.3-5.1); Sodium 142 mmol/L (135-145); Thyroid Stimulating Hormone 7.23 uIU/mL (0.32-4.0); Total Protein 7.1 g/dL (6.5-8.0)
== END 2025-07-11 10:05 | disposition home or self-care (01) ==
LOC: HO.10HDL 10:04
PROVIDERS: Visit Provider Specialist Research Study
DX: C64.9 Malignant neoplasm of unspecified kidney, except renal pelvis (principal); E03.9 Hypothyroidism, unspecified
CPT/HCPCS: 36415; 80053; 81001; 84443; 85025